=== PATIENT | female | born 1945 | race Caucasian/White ===

== ENCOUNTER → 2018-03-18 10:00 | Outpatient (CLI) | payer BC, SELFPAY ==
--- NOTE | 2018-03-18 10:04 | DI.CT.S_ITS ---
PROCEDURE: CT CHEST ABD PEL W CON INDICATIONS: Surveillance lymphoma TECHNIQUE: After the administration of oral and intravenous contrast, 5 mm thick sections acquired from the lung apices to the symphysis. 5 mm coronal and sagittal reformats were performed, with additional 7 mm coronal MIP reformats through the lungs. For radiation dose reduction, the following was used: automated exposure control, adjustment of mA and/or kV according to patient size. COMPARISON: [facility], CT, NECK/CHEST/ABD/PEL W CONTRAST, 08/15/2017, 12:01. [facility], CT, CHEST/ABD/PEL WITH CONTRAST, 06/21/2016, 10:07. [facility], CT, NECK/CHEST/ABD/PEL W CONTRAST, 01/19/2014, 9:52. [facility], CT, CHEST/ABD/PEL WITH CONTRAST, 08/07/2016, 11:08. FINDINGS: Image quality: Excellent. CHEST: Lungs and pleura: Mild atelectasis is present at the bilateral lung bases. No pleural effusion or pneumothorax. No acute airspace opacities. Mediastinum: Heart size is normal. There is a trace of low-density pericardial effusion. No mediastinal or hilar adenopathy by size criteria. Thoracic aorta and central pulmonary arteries are normal in size. Scattered atheromatous calcifications are present within the aortic arch. Esophagus is normal in caliber. No hiatal hernia. Chest wall: No axillary or supraclavicular adenopathy by size criteria. The thyroid gland demonstrates overall homogeneous enhancement. As before, there is a partially calcified posterior right thyroid lobe nodule which measures 2.0 x 2.9 cm on the current study it measured 2.1 x 2.8 cm on the study dated 06/21/16. Thyroid nodules. ABDOMEN: Solid organs: Liver is normal in size and enhancement. Gallbladder is unremarkable. Biliary system is non dilated. Pancreas enhances normally. Spleen is normal in size and enhancement. No adrenal nodules. Kidneys demonstrate normal size and enhancement, without hydronephrosis. There are multiple left pararenal cysts and subcentimeter bilateral cortical cysts. Peritoneum and bowel: Bowel loops demonstrate normal wall thickness and caliber. The appendix is thin walled and gas filled. There are scattered sigmoid diverticula. No evidence for diverticulitis. No free fluid or air. Nodes and vessels: No retroperitoneal or mesenteric adenopathy by size criteria. Aorta and inferior vena cava are normal in size. Miscellaneous: No ventral hernias. PELVIS: Genitourinary: Bladder wall thickness is normal. Miscellaneous: No inguinal hernias or adenopathy. Bones: No suspicious bony lesions. No vertebral body compression fractures. IMPRESSION: 1. No new adenopathy to suggest tumor recurrence. 2. Stable right posterior thyroid lobe. 3. Diverticulosis. No acute diverticulitis. Normal appendix. Dictated by: Renata Moreau M.D. on 03/18/2018 at 11:21 Approved by: Renata Moreau M.D. on 03/18/2018 at 11:29
[2018-03-18 10:34] LABS: Add Manual Diff / Slide Review NO; Basophils Percent Auto 0.8 % (0-2); Eosinophils Percent Auto 1.5 % (2-4); Hematocrit 40.7 % (36-46); Hemoglobin 13.6 g/dL (12.0-16.0); Lymphocytes Percent Auto 13.9 % (25-40); Mean Corpuscular HGB Conc 33.5 % (30-36); Mean Corpuscular Hemoglobin 30.9 PG (26-34); Mean Corpuscular Volume 92.5 fL (80-100); Monocytes Percent Auto 9.3 % (3-14); Neutrophils Absolute Auto 5800 /uL (3000-5900); Neutrophils Percent Auto 74.5 % (50-75); Platelet Count 317 X10^3/uL (150-400); Red Cell Distribution Width 14.2 % (11.6-14.8); White Blood Cell Count 7.8 X10^3/uL (4.5-11.0)
[2018-03-18 10:48] LABS: Alanine Aminotransferase 26 IU/L (9-52); Albumin 3.9 g/dL (3.5-5.0); Albumin Globulin Ratio 1.6 (1.0-2.8); Alkaline Phosphatase 78 U/L (38-126); Aspartate Aminotransferase 17 IU/L (14-36); BUN Creatinine Ratio 27.1 (6-22); Bilirubin Total 0.6 mg/dL (0.2-1.3); Blood Urea Nitrogen 19 mg/dL (7-17); Calcium 9.3 mg/dL (8.4-10.2); Carbon Dioxide 30 mmol/L (22-32); Chloride 103 mmol/L (98-107); Estimated Glomerular Filt Rate > 60.0 mL/min (>60); Globulin 2.5 g/dL (1.7-4.1); Glucose 87 mg/dL (80-110); HEMOLYSIS < 15 (0-50); Lactate Dehydrogenase 325 U/L (313-618); Sodium 140 mmol/L (137-145); Total Protein 6.4 g/dL (6.3-8.2)
--- NOTE | 2018-03-18 10:57 | DI.CT.S_ITS ---
PROCEDURE: CT SOFT TISSUE NECK W CON INDICATIONS: Surveillance lymphoma TECHNIQUE: After the administration of intravenous contrast, 3.0 mm axial sections acquired from the sella to the aortic arch. Additional oblique axial 3.0 mm sections acquired through the pharynx. 3 mm thick coronal and sagittal reformats were generated. For radiation dose reduction, the following was used: automated exposure control. COMPARISON: [facility], CT, CT CHEST ABD PEL W CON, 03/18/2018, 11:00. [facility], [place], [place] THYROID UPTAKE AND SCAN MULTIPLE, 12/03/2017, 14:18. [facility], CT, THORAX WITH CONTRAST, 11/23/2016, 10:32. [facility], CT, NECK/CHEST/ABD/PEL W CONTRAST, 08/15/2017, 12:01. FINDINGS: Image quality: Excellent. Lymph nodes: No enlarged lymph nodes seen throughout the neck. Vessels: Visualized vasculature appears patent. Neck spaces: The oropharynx, nasopharynx, and pharynx demonstrate no mucosal lesions. The vocal cords, false vocal cords, pyriform sinuses, epiglottis, vallecula, and tongue base all appear normal. Extramucosal spaces appear unremarkable. Glands: The parotid and submandibular glands appear normal. Thyroid gland is globally enlarged, right greater than left, as has been previously the case. Miscellaneous: Visualized brain and orbits appear normal. Lung apices appear clear. Superficial soft tissues appear normal. Bones: No suspicious bony lesions. Visualized sinuses and mastoids appear unremarkable. IMPRESSION: No adenopathy seen. Global enlargement of the thyroid gland bilaterally, right greater than left, previously documented. Dictated by: Zaki Rae M.D. on 03/18/2018 at 11:52 Approved by: Zaki Rae M.D. on 03/18/2018 at 12:09
== END ==
PROVIDERS: PCP Family Medicine; Visit Provider Nurse Practitioner Gerontology
DX: C85.90 Non-Hodgkin lymphoma, unspecified, unspecified site (principal)
CPT/HCPCS: 36415; 70491; 71260; 74177; 80053; 83615; 85025; Q9967

== ENCOUNTER → 2018-04-22 09:26 | Outpatient (CLI) | payer BC, SELFPAY ==
--- NOTE | 2018-04-22 | DI.MG.S_ITS ---
BILATERAL DIGITAL DIAGNOSTIC MAMMOGRAM 3D/2D: 04/22/2018 CLINICAL: Palpable left breast lump. Comparison is made to exams dated: 05/15/2017 mammogram, 05/08/2016 mammogram, and 05/07/2015 mammogram - [facility]. There are scattered fibroglandular elements in both breasts. There is a triangular marker overlying the skin of the upper inner left breast at the site of the patient's reported palpable abnormality. There is no underlying mammographic abnormality. No significant masses, calcifications, or other findings are seen in either breast. IMPRESSION: INCOMPLETE: NEEDS ADDITIONAL IMAGING EVALUATION No mammographic abnormality to correlate with the site of the patient's reported focal palpable abnormality. Targeted diagnostic ultrasound recommended for further evaluation, which will be performed immediately following this exam. This exam was interpreted at Station ID: [id number]. NOTE: For mammograms, a report in lay terms will be sent to the patient. Approximately 15% of breast malignancies will not be visualized mammographically. In the management of a palpable breast mass, a negative mammogram must not discourage biopsy of a clinically suspicious lesion. Electronically Signed By: Damion León M.D. ecl/:04/22/2018 17:42:36 letter sent: Additional Imaging Needed ACR BI-RADS Category 0: Incomplete 3340F
--- NOTE | 2018-04-22 | DI.US.S_ITS ---
PROCEDURE: US BREAST LT LIMITED COMPARISON: [facility], BIOPSY LOCALIZATION/ASPIRATION, 07/14/2016, 15:24. [facility], THYROID, 07/14/2016, 14:28. [facility], THYROID, 07/12/2015, 13:40. [facility], CAROTID ARTERY DOPPLER BILAT, 04/02/2014, 9:30. INDICATIONS: LEFT BREAST LUMP FINDINGS: IMPRESSION: Dictated by: Damion León M.D. on 04/22/2018 at 17:42 Approved by: Damion León M.D. on 04/22/2018 at 17:44
== END ==
PROVIDERS: PCP Family Medicine; Visit Provider Nurse Practitioner Gerontology
DX: R92.8 Other abnormal and inconclusive findings on diagnostic imaging of breast (principal); N63.22 Unspecified lump in the left breast, upper inner quadrant
CPT/HCPCS: 76642; 77066; G0279

== ENCOUNTER → 2018-07-29 14:50 | Outpatient (CLI) | payer BC, SELFPAY | PROVIDERS: PCP Family Medicine; Visit Provider Family Medicine | DX: R21 Rash and other nonspecific skin eruption (principal) | CPT/HCPCS: 87070; 87075; 87077; 87186; 87205 ==

== ENCOUNTER → 2018-08-20 13:37 | Outpatient (CLI) | payer BC, SELFPAY ==
--- NOTE | 2018-08-20 13:38 | DI.RAD.S_ITS ---
PROCEDURE: FL BARIUM SWALLOW INDICATIONS: difficulty swallowing, hx of radiation near esophagus COMPARISON: None. FINDINGS: Function: There is normal esophageal peristalsis. No elicited gastroesophageal reflux. There is normal transit of a calibrated barium tablet through the esophagus into the stomach. Morphology: Air-contrast images demonstrate normal mucosal morphology. Single contrast views show no esophageal strictures, extrinsic mass effects, or diverticula. Limited images of the stomach demonstrate normal appearance. IMPRESSION: Unremarkable double contrast barium swallow study. Dictated by: Laurent Turk M.D. on 08/20/2018 at 14:58 Approved by: Laurent Turk M.D. on 08/20/2018 at 14:59
== END ==
PROVIDERS: PCP Family Medicine; Visit Provider Family Medicine
DX: R13.10 Dysphagia, unspecified (principal)
CPT/HCPCS: 74220

== ENCOUNTER → 2018-10-04 12:44 | Outpatient (CLI) | payer BC, SELFPAY ==
[2018-10-04 13:24] LABS: Add Manual Diff / Slide Review NO; Basophils Absolute Auto 0 /uL (0-100); Basophils Percent Auto 0.3 % (0-2); Eosinophils Absolute Auto 100 /uL (0-450); Eosinophils Percent Auto 0.8 % (2-4); Hematocrit 39.2 % (36-46); Hemoglobin 12.9 g/dL (12.0-16.0); Lymphocytes Absolute Auto 1000 /uL (1100-4500); Lymphocytes Percent Auto 12.1 % (25-40); Mean Corpuscular HGB Conc 32.9 % (30-36); Mean Corpuscular Hemoglobin 30.2 PG (26-34); Mean Corpuscular Volume 91.8 fL (80-100); Monocytes Absolute Auto 700 /uL (0-900); Monocytes Percent Auto 8.7 % (3-14); Neutrophils Absolute Auto 6200 /uL (1500-7000); Neutrophils Percent Auto 78.1 % (50-75); Platelet Count 296 X10^3/uL (150-400); Red Blood Cell Count 4.27 X10^6/uL (4.0-5.2); Red Cell Distribution Width 14.7 % (11.6-14.8); White Blood Cell Count 7.9 X10^3/uL (4.5-11.0)
[2018-10-04 13:41] LABS: Alanine Aminotransferase 25 IU/L (9-52); Albumin 3.6 g/dL (3.5-5.0); Albumin Globulin Ratio 1.3 (1.0-2.8); Alkaline Phosphatase 78 U/L (38-126); Aspartate Aminotransferase 16 IU/L (14-36); Bilirubin Total 0.3 mg/dL (0.2-1.3); Blood Urea Nitrogen 19 mg/dL (7-17); Calcium 9.5 mg/dL (8.4-10.2); Carbon Dioxide 28 mmol/L (22-32); Chloride 105 mmol/L (98-107); Estimated Glomerular Filt Rate > 60.0 mL/min (>60); Globulin 2.8 g/dL (1.7-4.1); Glucose 126 mg/dL (80-110); HEMOLYSIS < 15 (0-50); Potassium 3.9 mmol/L (3.4-5.1); Sodium 141 mmol/L (137-145); Total Protein 6.4 g/dL (6.3-8.2)
[2018-10-04 13:57] LABS: Lactate Dehydrogenase 386 U/L (313-618)
== END ==
PROVIDERS: PCP Family Medicine; Visit Provider Nurse Practitioner Gerontology
DX: Z85.72 Personal history of non-Hodgkin lymphomas (principal)
CPT/HCPCS: 80053; 83615; 85025

== ENCOUNTER → 2018-10-10 11:30 | Outpatient (CLI) | payer BC, SELFPAY ==
[2018-10-10 12:38] LABS: Free T4, Direct Thyroxine 1.19 ng/dL (0.78-2.19)
[2018-10-10 12:52] LABS: Thyroid Stimulating Hormone 0.15 uIU/mL (0.47-4.68)
== END ==
PROVIDERS: Visit Provider Family Medicine
DX: E04.9 Nontoxic goiter, unspecified (principal)
CPT/HCPCS: 36415; 84439; 84443

== ENCOUNTER → 2018-12-03 09:45 | Outpatient (CLI) | payer BC, SELFPAY ==
[2018-12-03 10:31] LABS: Add Manual Diff / Slide Review NO; Basophils Absolute Auto 100 /uL (0-100); Basophils Percent Auto 0.9 % (0-2); Eosinophils Absolute Auto 200 /uL (0-450); Eosinophils Percent Auto 3.6 % (2-4); Hematocrit 38.7 % (36-46); Hemoglobin 12.7 g/dL (12.0-16.0); Lymphocytes Absolute Auto 900 /uL (1100-4500); Lymphocytes Percent Auto 14.3 % (25-40); Mean Corpuscular HGB Conc 32.9 % (30-36); Mean Corpuscular Hemoglobin 30.3 PG (26-34); Mean Corpuscular Volume 92.1 fL (80-100); Monocytes Absolute Auto 600 /uL (0-900); Monocytes Percent Auto 10.4 % (3-14); Neutrophils Absolute Auto 4300 /uL (1500-7000); Neutrophils Percent Auto 70.8 % (50-75); Platelet Count 307 X10^3/uL (150-400); Red Cell Distribution Width 14.7 % (11.6-14.8); White Blood Cell Count 6.1 X10^3/uL (4.5-11.0)
[2018-12-03 10:39] LABS: Alanine Aminotransferase 28 IU/L (9-52); Albumin 3.9 g/dL (3.5-5.0); Albumin Globulin Ratio 1.6 (1.0-2.8); Alkaline Phosphatase 65 U/L (38-126); Aspartate Aminotransferase 18 IU/L (14-36); Bilirubin Total 0.5 mg/dL (0.2-1.3); Blood Urea Nitrogen 15 mg/dL (7-17); Calcium 9.2 mg/dL (8.4-10.2); Carbon Dioxide 28 mmol/L (22-32); Chloride 103 mmol/L (98-107); Cholesterol 195 mg/dL (140-199); Estimated Glomerular Filt Rate > 60.0 mL/min (>60); Globulin 2.5 g/dL (1.7-4.1); Glucose 93 mg/dL (80-110); HDL Cholesterol 80 mg/dL (40-60); HEMOLYSIS < 15 (0-50); LDL Cholesterol Calculated 99 mg/dL (<100); Potassium 3.8 mmol/L (3.4-5.1); Sodium 138 mmol/L (137-145); Total Protein 6.4 g/dL (6.3-8.2); Triglycerides 82 mg/dL (35-150)
[2018-12-03 11:06] LABS: Free T3, Triiodothyronine Free 4.98 pg/mL (2.77-5.27); Free T4, Direct Thyroxine 1.21 ng/dL (0.78-2.19)
[2018-12-03 11:47] LABS: Creatinine Urine Random 97.6 mg/dL
[2018-12-03 11:51] LABS: Microalbumi Creatinin Ratio Ur 6.1 ug/mg CR (<30); Microalbumin Urine Random < 0.6 mg/dL (0-1.6)
== END ==
PROVIDERS: PCP Family Medicine; Visit Provider Family Medicine
DX: E04.9 Nontoxic goiter, unspecified (principal); R07.9 Chest pain, unspecified; I10 Essential (primary) hypertension
CPT/HCPCS: 36415; 80053; 80061; 82043; 82570; 84439; 84443; 84481; 85025

== ENCOUNTER → 2019-02-13 12:04 | Outpatient (CLI) | payer BC, SELFPAY ==
--- NOTE | 2019-02-13 | DI.CT.S_ITS ---
PROCEDURE: CT CHEST W CON INDICATIONS: Chest pain, unspecified, prior history of lymphoma. TECHNIQUE: After the administration of intravenous contrast, 5 mm thick sections acquired from the pulmonary apices to the posterior costophrenic angles. 7 mm thick coronal and sagittal MIP reformats were acquired. For radiation dose reduction, the following was used: automated exposure control, adjustment of mA and/or kV according to patient size. COMPARISON: [facility], CT, CT CHEST ABD PEL W CON, 03/18/2018, 11:00. FINDINGS: Image quality: Excellent. Lungs and pleura: No acute air space opacities. No pleural effusions or pneumothorax. Central and peripheral airways are patent and normal in caliber. Mediastinum: Heart size is normal. No pericardial effusion. No mediastinal or hilar adenopathy by size criteria. Thoracic aorta and central pulmonary arteries are normal in size. Esophagus is normal in caliber. No hiatal hernia. Bones and chest wall: No suspicious bony lesions. No vertebral body compression fractures. No axillary or supraclavicular adenopathy by size criteria. Thyroid gland is unchanged with several scattered nodules and asymmetric enlargement of the right posterior thyroid lobe as has been previously documented by CT scanning. No new nodule has developed. Abdomen: Visualized upper abdominal solid organs appear normal. Upper abdominal bowel loops are normal in caliber. Parapelvic cysts on the right are again noted. IMPRESSION: No definite change attendant time, source of new chest pain is not identified. No evidence of recurrent lymphoma is found. Stable appearance of scattered thyroid nodules with asymmetric enlargement of the right posterior thyroid lobe also stable over time. Again noted are several left renal peripelvic cysts. Dictated by: Zaki Rae M.D. on 02/13/2019 at 13:20 Approved by: Zaki Rae M.D. on 02/13/2019 at 13:24
[2019-02-13 12:37] LABS: Blood Urea Nitrogen 12 mg/dL (7-17); Calcium 9.3 mg/dL (8.4-10.2); Carbon Dioxide 29 mmol/L (22-32); Chloride 105 mmol/L (98-107); Estimated Glomerular Filt Rate > 60.0 mL/min (>60); Glucose 97 mg/dL (80-110); HEMOLYSIS < 15 (0-50); Potassium 3.9 mmol/L (3.4-5.1); Sodium 140 mmol/L (137-145)
== END ==
PROVIDERS: PCP Family Medicine; Visit Provider Internal Medicine Cardiovascular Disease
DX: R07.9 Chest pain, unspecified (principal); I31.9 Disease of pericardium, unspecified; E04.2 Nontoxic multinodular goiter; N28.1 Cyst of kidney, acquired; Z85.72 Personal history of non-Hodgkin lymphomas
CPT/HCPCS: 36415; 71260; 80048

== ENCOUNTER → 2019-04-22 12:01 | Outpatient (CLI) | payer BC, SELFPAY | PROVIDERS: Family Provider Family Medicine; PCP Family Medicine; Visit Provider Family Medicine ==

== ENCOUNTER → 2019-04-24 10:42 | Outpatient (CLI) | payer BC, SELFPAY ==
--- NOTE | 2019-04-24 | DI.MG.S_ITS ---
BILATERAL DIGITAL SCREENING MAMMOGRAM 3D/2D WITH CAD: 04/24/2019 CLINICAL: Routine screening. Family history of breast cancer. Comparison is made to exams dated: 04/22/2018 mammogram, 05/15/2017 mammogram, and 05/08/2016 mammogram - [facility]. There are scattered fibroglandular elements in both breasts. Current study was also evaluated with a Computer Aided Detection (CAD) system. No significant masses, calcifications, or other findings are seen in either breast. There has been no significant interval change. IMPRESSION: NEGATIVE There is no mammographic evidence of malignancy. A 1 year screening mammogram is recommended. This exam was interpreted at Station ID: [id number]. NOTE: For mammograms, a report in lay terms will be sent to the patient. Approximately 15% of breast malignancies will not be visualized mammographically. In the management of a palpable breast mass, a negative mammogram must not discourage biopsy of a clinically suspicious lesion. Electronically Signed By: Maynor maciel/mary:04/24/2019 11:39:16 letter sent: Normal Exam ACR BI-RADS Category 1: Negative [id number]
== END ==
PROVIDERS: Family Provider Family Medicine; PCP Family Medicine; Visit Provider Family Medicine
DX: Z12.31 Encounter for screening mammogram for malignant neoplasm of breast (principal); Z80.3 Family history of malignant neoplasm of breast
CPT/HCPCS: 77063; 77067

== ENCOUNTER → 2019-06-25 12:22 | Outpatient (CLI) | payer BC, SELFPAY ==
--- NOTE | 2019-06-25 12:24 | DI.RAD.S_ITS ---
PROCEDURE: XR CERVICAL SPINE 2V OR 3V INDICATIONS: upper back/neck pain with radiculopathy TECHNIQUE: 3 view(s) of the cervical spine were acquired. COMPARISON: None. FINDINGS: Bones: No fractures or dislocations to the T1 level. The lateral masses of C1 appear intact on the odontoid view. No suspicious bony lesions. Note is made of a moderately severe degree of degenerative disc disease with anterior osteophyte formation from C5-6 through C7-T1. Soft tissues: No prevertebral soft tissue swelling. IMPRESSION: Moderately severe lower half cervical spine degenerative disc disease and anterior projecting osteophytes. Spinal and foraminal stenosis likely is associated and may be further and more accurately assessed for by MR scanning if clinically indicated. Dictated by: Zaki Rae M.D. on 06/25/2019 at 14:09 Approved by: Zaki Rae M.D. on 06/25/2019 at 14:10
--- NOTE | 2019-06-25 12:24 | DI.RAD.S_ITS ---
PROCEDURE: XR THORACIC SPINE 3V INDICATIONS: upper back/neck pain with radiculopathy TECHNIQUE: 3 views of the thoracic spine were acquired. COMPARISON: None. FINDINGS: Bones: No fractures or dislocations. No suspicious bony lesions. 12 pairs of ribs are noted, and appear intact where visualized. Soft tissues: No paravertebral stripe thickening. IMPRESSION: No trauma to the thoracic spine is seen. Mild to moderate degenerative disc disease is noted along the thoracic spine best seen at the middle third. Dictated by: Zaki Rae M.D. on 06/25/2019 at 14:18 Approved by: Zaki Rae M.D. on 06/25/2019 at 14:20
== END ==
PROVIDERS: Family Provider Family Medicine; PCP Family Medicine; Visit Provider Family Medicine
DX: M50.122 Cervical disc disorder at C5-C6 level with radiculopathy (principal); M51.14 Intervertebral disc disorders with radiculopathy, thoracic region
CPT/HCPCS: 72040; 72072

== ENCOUNTER → 2019-07-08 13:19 | Outpatient (CLI) | payer BC, SELFPAY ==
--- NOTE | 2019-07-08 13:21 | DI.MRI.S_ITS ---
PROCEDURE: MR CERVICAL SPINE WO CON INDICATIONS: djd c spine, radiculopathy TECHNIQUE: Noncontrast sagittal T1 spin echo and T2 fast spin echo, sagittal STIR, foraminal oblique sagittal T2 fast spin echo, and axial gradient echo or T2 fast spin echo through the cervical spine. COMPARISON: None. FINDINGS: Image quality: Excellent. Alignment and Curvature: Straightening of the normal lordotic curvature. Anterolisthesis of C3 on C4 and trace retrolisthesis of C6 on C7 Bone Marrow: No fracture. Multilevel degenerative endplate sclerosis and spurring. Diffuse facet arthropathy. Spinal Cord: Visualized spinal cord has normal size and signal. No cerebellar tonsillar herniation. Paraspinous Soft Tissues: No paravertebral masses. Prevertebral soft tissues are normal in thickness. C2-C3: Mild central canal narrowing. Mild left foraminal stenosis with mild nerve root compression. No definite right foraminal stenosis. C3-C4: No central canal narrowing. Mild right foraminal narrowing. Moderate left foraminal stenosis with nerve root compression C4-C5: Mild central canal narrowing. Moderate foraminal stenosis with mild nerve root compression. Mild left foraminal stenosis C5-C6: Mild central canal narrowing. Mild right foraminal stenosis [id number] left foraminal narrowing with possible mild nerve root compression C6-C7: Moderate canal narrowing. Minimal right foraminal narrowing. Mild left foraminal stenosis C7-T1: Minimal central canal narrowing. Mild bilateral foraminal narrowing with possible minimal nerve root compression on the left. IMPRESSION: Diffuse cervical spondylosis and facet arthropathy as above. Moderate C6-C7 canal narrowing Straightening of the normal lordotic curvature. Dictated by: Thomas Leon M.D. on 07/08/2019 at 16:17 Approved by: Thomas Leon M.D. on 07/08/2019 at 16:24
== END ==
PROVIDERS: PCP Family Medicine; Visit Provider Family Medicine
DX: M47.22 Other spondylosis with radiculopathy, cervical region (principal); M48.02 Spinal stenosis, cervical region
CPT/HCPCS: 72141

== ENCOUNTER → 2019-07-09 17:12 | Outpatient (CLI) | payer BC, SELFPAY ==
[2019-07-09 19:33] LABS: Thyroid Stimulating Hormone 0.63 uIU/mL (0.47-4.68)
== END ==
PROVIDERS: Family Provider Family Medicine; PCP Family Medicine; Visit Provider Internal Medicine Endocrinology, Diabetes & Metabolism
DX: E05.90 Thyrotoxicosis, unspecified without thyrotoxic crisis or storm (principal)
CPT/HCPCS: 36415; 83519; 84439; 84443

== ENCOUNTER → 2019-10-27 10:08 | Outpatient (CLI) | payer BC, SELFPAY ==
[2019-10-27 10:37] LABS: Add Manual Diff / Slide Review NO; Basophils Absolute Auto 100 /uL (0-100); Basophils Percent Auto 0.9 % (0-2); Eosinophils Absolute Auto 200 /uL (0-450); Eosinophils Percent Auto 2.4 % (2-4); Hematocrit 40.7 % (36-46); Hemoglobin 13.5 g/dL (12.0-16.0); Lymphocytes Absolute Auto 1400 /uL (1100-4500); Lymphocytes Percent Auto 19.1 % (25-40); Mean Corpuscular HGB Conc 33.3 % (30-36); Mean Corpuscular Hemoglobin 30.6 PG (26-34); Monocytes Absolute Auto 800 /uL (0-900); Monocytes Percent Auto 10.6 % (3-14); Neutrophils Absolute Auto 4800 /uL (1500-7000); Platelet Count 295 X10^3/uL (150-400); Red Blood Cell Count 4.43 X10^6/uL (4.0-5.2); Red Cell Distribution Width 14.1 % (11.6-14.8); White Blood Cell Count 7.2 X10^3/uL (4.5-11.0)
[2019-10-27 10:47] LABS: Alanine Aminotransferase 15 IU/L (<35); Albumin Globulin Ratio 1.3 (1.0-2.8); Alkaline Phosphatase 88 U/L (38-126); Aspartate Aminotransferase 19 IU/L (14-36); BUN Creatinine Ratio 23.3 (6-22); Bilirubin Total 0.4 mg/dL (0.2-1.3); Blood Urea Nitrogen 14 mg/dL (7-17); Calcium 9.7 mg/dL (8.4-10.2); Carbon Dioxide 28 mmol/L (22-32); Chloride 103 mmol/L (98-107); Estimated Glomerular Filt Rate > 60.0 mL/min (>60); Glucose 95 mg/dL (80-110); HEMOLYSIS < 15 (0-50); Lactate Dehydrogenase 293 U/L (313-618); Potassium 3.7 mmol/L (3.4-5.1); Sodium 139 mmol/L (137-145)
== END ==
PROVIDERS: Family Provider Family Medicine; PCP Family Medicine; Referring Provider Internal Medicine Hematology & Oncology; Visit Provider Internal Medicine Hematology & Oncology
DX: D64.9 Anemia, unspecified (principal)
CPT/HCPCS: 36415; 80053; 83615; 85025

== ENCOUNTER → 2019-11-10 13:14 | Outpatient (CLI) | payer BC, SELFPAY ==
--- NOTE | 2019-11-10 13:15 | DI.MRI.S_ITS ---
PROCEDURE: MR ORBITS FACE NECK WO/W CON INDICATIONS: Left eye swelling, history of lymphoma to left eye TECHNIQUE: Noncontrast sagittal T1 spin echo, axial FLAIR, axial gradient echo, axial diffusion and ADC acquired through the brain. Coronal STIR, thin-slice axial T1 spin echo through the orbits. After the administration of contrast, thin-slice axial and coronal T1 spin echo with fat saturation through the orbits, axial T1 spin echo with fat saturation through the brain. COMPARISON: [facility], CT, HEAD WITH CONTRAST, 07/01/2015, 10:27. FINDINGS: Image quality: Motion or susceptibility artifact can be seen involving the eyelids. Orbits: Globes are symmetrical. Note is made of bilateral lens replacements. The optic nerves are normal in size, without abnormal signal or enhancement. No retrobulbar masses or fat abnormalities. The extra-ocular muscles are normal and symmetric in appearance. Lacrimal glands are normal. Optic chiasm is normal. Periorbital soft tissues appear normal. CSF spaces: Ventricles are normal in size and shape. Basal cisterns are patent. No extra-axial fluid collections. Brain: No intracranial bleeds or mass effects. No abnormal intracranial enhancement. Reveles-white matter interface is intact. Age-appropriate brain parenchymal volume loss and chronic small vessel ischemic change can be seen. Diffusion weighted images demonstrate no acute ischemic insults. Pituitary gland appears normal, without sellar or suprasellar masses. Brainstem appears normal. Normal intravascular flow voids are present. Skull and face: Calvarial marrow is normal in signal. Sinuses: Sinuses and mastoids are clear. Bilateral kaushal bullosa are incidentally noted, right larger than left. IMPRESSION: To the limits of this study, no masses or abnormal enhancement can be seen involving the orbits. Dictated by: Ulices Decker M.D. on 11/10/2019 at 14:41 Approved by: Ulices Decker M.D. on 11/10/2019 at 14:43
== END ==
PROVIDERS: Family Provider Family Medicine; PCP Family Medicine; Referring Provider Internal Medicine Hematology & Oncology; Visit Provider Internal Medicine Hematology & Oncology
DX: C82.91 Follicular lymphoma, unspecified, lymph nodes of head, face, and neck (principal); H57.89 Other specified disorders of eye and adnexa
CPT/HCPCS: 70543; A9579

== ENCOUNTER → 2020-01-13 11:27 | Outpatient (CLI) | payer BC, SELFPAY ==
--- NOTE | 2020-01-13 11:29 | DI.US.S_ITS ---
PROCEDURE: US EXTREMITY NONVASC LOWER RT INDICATIONS: RT INGUINAL MASS, SLIGHTLY FLUCTUANT, LN VS ABSCESS TECHNIQUE: Real-time scanning was performed of the right inguinal region, with image documentation. COMPARISON: None. FINDINGS: Targeted sonographic imaging of the right inguinal region demonstrates a slightly hypoechoic subcutaneous structure that measures 2.7 x 1.1 x 1.5 cm and demonstrates increased through transmission without a central/internal vascularity. Slight increased vascularity is demonstrated to the periphery of this structure. No definitive inguinal hernia or soft tissue mass is appreciated. No enlarged lymph nodes are identified. IMPRESSION: Heterogeneous fluid collection within the right inguinal region is most suggestive of an infectious process, either representing phlegmonous soft tissue changes versus a small focal abscess. Please correlate clinically. Dictated by: Haider Zuniga M.D. on 01/13/2020 at 12:53 Approved by: Haider Zuniga M.D. on 01/13/2020 at 13:13
== END ==
PROVIDERS: Family Provider Family Medicine; PCP Family Medicine; Referring Provider Family Medicine; Visit Provider Family Medicine
DX: R19.09 Other intra-abdominal and pelvic swelling, mass and lump (principal)
CPT/HCPCS: 76882

== ENCOUNTER → 2020-04-21 15:41 | Outpatient (CLI) | payer BC, SELFPAY ==
--- NOTE | 2020-04-21 15:42 | DI.RAD.S_ITS ---
PROCEDURE: XR CHEST 2V INDICATIONS: Chest pain, heart palpitations TECHNIQUE: 2 views of the chest were acquired. COMPARISON: None. FINDINGS: Surgical changes and devices: None. Lungs and pleura: Lungs are clear. No pleural effusions or pneumothorax. Mediastinum: Mediastinal contours are normal. Heart size is normal. Bones and chest wall: No suspicious bony abnormalities. Soft tissues appear unremarkable. IMPRESSION: No acute cardiopulmonary process demonstrated radiographically. Dictated by: Jose Mann M.D. on 04/21/2020 at 15:58 Approved by: Jose Mann M.D. on 04/21/2020 at 15:59
== END ==
PROVIDERS: Family Provider Family Medicine; PCP Family Medicine; Referring Provider Family Medicine; Visit Provider Family Medicine
DX: R07.9 Chest pain, unspecified (principal); R00.2 Palpitations
CPT/HCPCS: 71046

== ENCOUNTER → 2020-04-30 13:32 | Outpatient (CLI) | payer BC, SELFPAY ==
--- NOTE | 2020-04-30 13:34 | DI.CT.S_ITS ---
PROCEDURE: CT SOFT TISSUE NECK W CON INDICATIONS: Follow-up follicular lymphoma TECHNIQUE: After the administration of intravenous contrast, 3.0 mm axial sections acquired from the sella to the aortic arch. Additional oblique axial 3.0 mm sections acquired through the pharynx. 3 mm thick coronal and sagittal reformats were generated. For radiation dose reduction, the following was used: automated exposure control. COMPARISON: [facility], [place], THYROID, . 6, 14:28[facility], CT, CHEST ABDOMEN PELVIS WITH CONTRAST, 01/04/2011, 10:08. [facility], CT, CT SOFT TISSUE NECK W CON, 03/18/2018, 11:00. [facility], MR, MR CERVICAL SPINE WO CON, 07/08/2019, 13:23. FINDINGS: Image quality: Excellent. Lymph nodes: No threshold enlarged or pathologic appearing cervical or supraclavicular lymph node. Vessels: Visualized vasculature appears patent. Neck spaces: The oropharynx, nasopharynx, and pharynx demonstrate no mucosal lesions. The vocal cords, false vocal cords, pyriform sinuses, epiglottis, vallecula, and tongue base all appear normal. Extramucosal spaces appear unremarkable. Glands: The parotid and submandibular glands appear normal. Increased size of posterior right thyroid lobe nodule, currently measuring 3.5 x 2.6 cm maximum axial dimension compared with 2.9 x 2.3 cm previously. This measured approximately 2 cm maximum axial dimension on 01/04/2011 exam. Generalized thyromegaly is present, with both posterior thyroid lobes abutting and mildly deforming the esophagus. Miscellaneous: Visualized brain and orbits appear normal. Lung apices appear clear. Superficial soft tissues appear normal. Bones: No suspicious bony lesions. Visualized sinuses and mastoids appear unremarkable. IMPRESSION: No threshold lymphadenopathy in the neck to suggest recurrent or residual lymphoma. Posterior right thyroid lobe nodule, increased in size from comparison studies. This has been present since 2010 and it is relatively modest growth over a 9 year interval is suggestive of a benign lesion. In addition, the thyroid ultrasound performed 07/12/2016 demonstrated a benign spongiform appearance. Generalized thyromegaly. Correlate with thyroid function tests. Dictated by: Jose Mann M.D. on 04/30/2020 at 16:43 Approved by: Jose Mann M.D. on 04/30/2020 at 16:50
--- NOTE | 2020-04-30 13:34 | DI.CT.S_ITS ---
PROCEDURE: CT CHEST ABD PEL W CON INDICATIONS: Follow-up follicular lymphoma TECHNIQUE: After the administration of oral and intravenous contrast, 5 mm thick sections acquired from the lung apices to the symphysis. 5 mm coronal and sagittal reformats were performed, with additional 7 mm coronal MIP reformats through the lungs. For radiation dose reduction, the following was used: automated exposure control, adjustment of mA and/or kV according to patient size. COMPARISON: [facility], CT, CT CHEST ABD PEL W CON, 03/18/2018, 11:00. FINDINGS: Image quality: Excellent. CHEST: Lungs and pleura: Pulmonary scar is redemonstrated at the right lung base. No acute airspace opacities. No pleural effusion or pneumothorax. Mediastinum: Heart size is normal. No pericardial effusion. No mediastinal or hilar adenopathy by size criteria. Thoracic aorta and central pulmonary arteries are normal in size. Scattered atheromatous calcifications are present within the aortic arch. Esophagus is normal in caliber. No hiatal hernia. Chest wall: No axillary or supraclavicular adenopathy by size criteria. Right thyroid hypertrophy is redemonstrated in unchanged from the study dated March 18, 2018. ABDOMEN: Solid organs: Liver is normal in size and enhancement. Gallbladder is unremarkable . Biliary system is non dilated. Pancreas enhances normally. Spleen is normal in size and enhancement. No adrenal nodules. Kidneys demonstrate normal size and enhancement, without hydronephrosis. Bilateral low-density pararenal cysts are present. Peritoneum and bowel: Bowel loops demonstrate normal wall thickness and caliber. There are scattered sigmoid diverticula. No evidence for diverticulitis. The appendix is thin walled and gas filled. No free fluid or air. Nodes and vessels: No retroperitoneal or mesenteric adenopathy. Aorta and inferior vena cava are normal in size. Miscellaneous: No ventral hernias. PELVIS: Genitourinary: Bladder wall thickness is normal. The uterus is not visualized and is likely surgically absent. Left ovary is unremarkable. There is a low-density 1.4 cm cyst within the right ovary (series 6/image 99). Miscellaneous: No inguinal hernias or adenopathy. Bones: No suspicious bony lesions. No vertebral body compression fractures. IMPRESSION: 1. No adenopathy to suggest recurrent lymphoma. 2. Normal appendix. Diverticulosis. No acute diverticulitis. Dictated by: Renata Moreau M.D. on 04/30/2020 at 16:15 Approved by: Renata Moreau M.D. on 04/30/2020 at 16:21
== END ==
PROVIDERS: Family Provider Family Medicine; PCP Family Medicine; Referring Provider Family Medicine; Visit Provider Family Medicine
DX: Z08 Encounter for follow-up examination after completed treatment for malignant neoplasm (principal); Z85.72 Personal history of non-Hodgkin lymphomas; D64.9 Anemia, unspecified; E01.0 Iodine-deficiency related diffuse (endemic) goiter; N28.1 Cyst of kidney, acquired; K57.30 Diverticulosis of large intestine without perforation or abscess without bleeding
CPT/HCPCS: 70491; 71260; 74177; Q9967

== ENCOUNTER → 2020-05-05 16:12 | Outpatient (CLI) | payer BC, SELFPAY ==
--- NOTE | 2020-05-05 | DI.MG.S_ITS ---
BILATERAL DIGITAL SCREENING MAMMOGRAM 3D/2D WITH CAD: 05/05/2020 CLINICAL: Routine. Family history of breast cancer. Comparison is made to exams dated: 04/24/2019 mammogram, 04/22/2018 mammogram, 05/15/2017 mammogram, 05/08/2016 mammogram, 05/07/2015 mammogram, and 05/04/2014 mammogram - [facility]. There are scattered fibroglandular elements in both breasts. Current study was also evaluated with a Computer Aided Detection (CAD) system. No significant masses, calcifications, or other findings are seen in either breast. There has been no significant interval change. IMPRESSION: NEGATIVE There is no mammographic evidence of malignancy. A 1 year screening mammogram is recommended. This exam was interpreted at Station ID: [id number]. NOTE: For mammograms, a report in lay terms will be sent to the patient. Approximately 15% of breast malignancies will not be visualized mammographically. In the management of a palpable breast mass, a negative mammogram must not discourage biopsy of a clinically suspicious lesion. Electronically Signed By: Jason pacheco/mary:05/05/2020 16:40:05 letter sent: Normal Exam ACR BI-RADS Category 1: Negative [id number]
== END ==
PROVIDERS: Family Provider Family Medicine; PCP Family Medicine; Referring Provider Family Medicine; Visit Provider Family Medicine
DX: Z12.31 Encounter for screening mammogram for malignant neoplasm of breast (principal); Z80.3 Family history of malignant neoplasm of breast
CPT/HCPCS: 77063; 77067

== ENCOUNTER → 2020-05-10 08:02 | Outpatient (CLI) | payer BC, SELFPAY ==
--- NOTE | 2020-05-10 08:03 | DI.ECHO.S_ITS ---
[facility]---------+ [facility] +---------+ : : [address] : : : : [id number] : : : : Phone: [phone]+ Echocardiogram Report + + :Name: CHRISTINA HERMOSILLO Study Date: 05/10/2020 Height: 65 in : :[facility] Weight: 175 lb : : Gender: Female BSA: 1.9 m2 : :: 1945 Age: 74 yrs BP: 142/86 mmHg: :Reason For Study: Chest Pain : : Performed By: Ruthie Willingham : :Referring: ELIZABETH PETERS : + + Interpretation Summary The ejection fraction is estimated to be 60-65%. There is mild tricuspid regurgitation. The right ventricular systolic pressure is estimated to be at least 33 mmHg based on an estimated right atrial pressure of 8 mm Hg. Procedure: A two-dimensional transthoracic echocardiogram with color flow and Doppler was performed. The study quality was technically adequate. There is no prior echocardiogram noted for this patient. The patient was in sinus rhythm with heart rates between 68-73 bpm during the exam. Left Ventricle: The left ventricle is normal in size and wall thickness. The ejection fraction is estimated to be 60-65%. Left ventricular global longitudinal strain average is 21.4%. Left ventricular wall motion is normal. Diastolic parameters suggest a pseudonormalization pattern, consistent with probable elevated filling pressures. Right Ventricle: The right ventricle is normal in size and function. Atria: The left atrium is mildly dilated. Right atrial size is normal. There is no Doppler evidence for an interatrial shunt. Mitral Valve: The mitral valve is normal in structure and function. There is trace mitral regurgitation. Aortic Valve: The aortic valve is trileaflet. The aortic valve opens well. There is no aortic valve stenosis. No aortic regurgitation is present. Tricuspid Valve: The tricuspid valve is normal in structure and function. The right ventricular systolic pressure is estimated to be at least 33 mmHg based on an estimated right atrial pressure of 8 mm Hg. There is mild tricuspid regurgitation. Pulmonic Valve: The pulmonic valve leaflets are thin and pliable; valve motion is normal. There is no pulmonic valvular regurgitation. Great Vessels: The aortic root is normal size. The dimensions of the ascending aorta are normal. The IVC is dilated (diameter is greater than 2.1 cm) yet it collapses greater than 50% with a sniff. This suggests a right atrial pressure of 8 mm Hg. Pericardium/ Pleura There is no pericardial effusion. There is no pleural effusion. MMode/2D Measurements & Calculations LVIDd: 3.8 cm LVOT diam: 1.8 cm LVIDs: 2.6 cm Ao root diam: 2.9 cm FS: 31.8 % asc Aorta Diam: 2.7 cm EPSS: 0.91 cm Ao Arch Diam (Prox Trans): 2.6 cm IVSd: 0.96 cm LVPWd: 0.69 cm LV sandy. diameter/BSA (cm/m^2): 2.0 LV sys. diameter/BSA (cm/m^2): 1.4 LA A2 area: 23.7 cm2 RA long axis: 4.5 cm LA A4 area: 18.0 cm2 RA area: 14.4 cm2 LA length (vol): 5.7 cm RA vol: 39.1 ml LA vol: 63.2 ml RA : 20.9 ml/m2 LA vol index: 33.8 ml/m2 IVC diam: 2.4 cm RVD1 (basal): 3.1 cm TAPSE: 2.3 cm Doppler Measurements & Calculations Ao V2 max: 141.1 cm/sec LVOT Max Ze: 108.3 cm/sec Ao V2 mean: 89.4 cm/sec LV V1 max P.7 mmHg Ao max P.0 mmHg LV V1 VTI: 23.7 cm Ao mean P.8 mmHg LAY(I,D): 2.0 cm2 Ao V2 VTI: 30.3 cm LAY(V,D): 1.9 cm2 sev ratio: 0.78 LAY indexed to BSA (cm^2/m^2): 1.1 MV E max ze: 99.7 cm/sec TR max ze: 253.0 cm/sec MV A max ze: 105.0 cm/sec TR max P.6 mmHg MV E/A: 0.95 PA V2 max: 58.3 cm/sec Med Peak E' Ze: 5.8 cm/sec PA V2 mean: 37.5 cm/sec E/E' med: 17.3 PA mean P.67 mmHg Lat Peak E' Ze: 6.3 cm/sec PA pr(Accel): 46.5 mmHg E/E' lat: 15.7 E/e' average: 16.5 MV dec time: 0.24 sec SVLVOT): 59.9 ml Reading Physician:01:58 PM
== END ==
PROVIDERS: Family Provider Family Medicine; PCP Family Medicine; Referring Provider Family Medicine; Visit Provider Family Medicine
DX: I07.1 Rheumatic tricuspid insufficiency (principal); R07.9 Chest pain, unspecified; R60.0 Localized edema
CPT/HCPCS: 93306

== ENCOUNTER → 2020-05-12 12:57 | Outpatient (CLI) | payer BC, SELFPAY ==
--- NOTE | 2020-06-04 16:52 | PM.CARDMON.1 ---
Direct Care Supervisor Report Referral & Results Date Patient Seen: 05/12/20 Requesting provider: Lidia Sharpe Indication: Palpitations Duration of monitoring (days): 14 Diary information: There were 26 patient triggered events and 14 patient diary entries Patient triggered events were associated with (within 45 seconds) sinus rhythm, PACs, and SVT/atrial tachycardia Patient diary events were also associated with same 2 dysrhythmias and sinus rhythm Data: Minimum heart rate identified was 55 beats per minute at 00:45 on 05/13/2020 Maximum heart rate was 118 beats per minute at 19:43 on 05/17/2020 Maximum overall heart rate was 190 beats per minute at 11:02 on 05/25/2020 during a 7 beat run of SVT Approximately 1.7% of identified beats were supraventricular ectopic in origin Less than 1% of identified beats were ventricular ectopic in origin There were 89 runs of SVT/atrial tachycardia the longest lasting 20.6 seconds at a rate of 130 beats per minute which suggest probable atrial tachycardia Impression: Patient with primarily supraventricular dysrhythmias as above. No clear correlation between patient reported symptoms via the diarrhea or trigger mechanism and anyone particular dysrhythmia. Patient at times appeared to record events that were associated only with sinus rhythm Clinical correlation suggested
== END ==
PROVIDERS: Family Provider Family Medicine; PCP Family Medicine; Referring Provider Family Medicine; Visit Provider Family Medicine
DX: R00.2 Palpitations (principal)
CPT/HCPCS: 0296T; 0298T

== ENCOUNTER → 2020-09-27 13:42 | Outpatient (CLI) | payer BC, SELFPAY ==
--- NOTE | 2020-09-27 | DI.RAD.S_ITS ---
PROCEDURE: XR CERVICAL SPINE 4V OR 5V INDICATIONS: Radiculopathy, cervical region TECHNIQUE: 5 views of the cervical spine were acquired. COMPARISON: [facility], CR, XR CERVICAL SPINE 2V OR 3V, 06/25/2019, 12:28. FINDINGS: Bones: No fractures or dislocations to the T1 level. Loss of lordosis which could be related to muscle spasm, rigidity or simply positional. Multilevel disc degeneration, moderate to severe at the C5-C6 and C6-C7 levels. Moderate multilevel mid and lower cervical spine bilateral facet joint arthropathy and uncovertebral hypertrophy. No suspicious bony lesions. There is normal range of motion between flexion and extension, with preserved normal bony alignment. Soft tissues: Prevertebral soft tissues are normal in thickness. IMPRESSION: Multilevel spondylosis similar to prior examination dated 06/25/2019. Dictated by: Rodger CAI Interpreted: Laurent Turk MD on 09/27/2020 at 16:50 Approved by: Laurent Turk M.D. on 09/27/2020 at 17:05
== END ==
PROVIDERS: Family Provider Family Medicine; PCP Family Medicine; Referring Provider Neurological Surgery; Visit Provider Neurological Surgery
DX: M50.122 Cervical disc disorder at C5-C6 level with radiculopathy (principal)
CPT/HCPCS: 72050

== ENCOUNTER → 2020-12-03 10:59 | Outpatient (CLI) | payer BC, SELFPAY ==
[2020-12-03 11:15] LABS: Bacteria Urine None Seen; RBC Urine None Seen (0-5/HPF)
[2020-12-03 12:23] LABS: Add Manual Diff / Slide Review NO; Basophils Absolute Auto 100 /uL (0-100); Basophils Percent Auto 0.8 % (0-2); Eosinophils Absolute Auto 300 /uL (0-450); Hematocrit 39.8 % (36-46); Hemoglobin 13.3 g/dL (12.0-16.0); Lymphocytes Absolute Auto 1200 /uL (1100-4500); Lymphocytes Percent Auto 16.7 % (25-40); Mean Corpuscular HGB Conc 33.5 % (30-36); Mean Corpuscular Hemoglobin 30.5 PG (26-34); Monocytes Absolute Auto 700 /uL (0-900); Monocytes Percent Auto 9.7 % (3-14); Neutrophils Absolute Auto 4800 /uL (1500-7000); Neutrophils Percent Auto 68.8 % (50-75); Platelet Count 312 X10^3/uL (150-400); Red Blood Cell Count 4.38 X10^6/uL (4.0-5.2)
[2020-12-03 12:28] LABS: PTT Partial Thromboplastin Tim 28 SECONDS (26.4-36.2)
[2020-12-03 12:35] LABS: Alanine Aminotransferase 16 IU/L (<35); Albumin 3.9 g/dL (3.5-5.0); Albumin Globulin Ratio 1.6 (1.0-2.8); Alkaline Phosphatase 110 U/L (38-126); Aspartate Aminotransferase 21 IU/L (14-36); BUN Creatinine Ratio 33.9 (6-22); Bilirubin Total 0.3 mg/dL (0.2-1.3); Blood Urea Nitrogen 19 mg/dL (7-17); Calcium 9.9 mg/dL (8.4-10.2); Carbon Dioxide 26 mmol/L (22-32); Chloride 104 mmol/L (98-107); Estimated Glomerular Filt Rate > 60.0 mL/min (>60); Globulin 2.4 g/dL (1.7-4.1); Glucose 101 mg/dL (80-110); HEMOLYSIS < 15 (0-50); Potassium 4.2 mmol/L (3.4-5.1); Sodium 138 mmol/L (137-145); Total Protein 6.3 g/dL (6.3-8.2)
[2020-12-03 12:39] LABS: Hemoglobin A1C% w Est Avg Glu 5.7 % (4.0-6.0)
[2020-12-03 13:41] LABS: Bilirubin Urine UA NEGATIVE (NEGATIVE); Color Urine UA YELLOW; Glucose Urine UA NEGATIVE (Negative); Ketones Urine UA NEGATIVE (NEGATIVE); Leukocyte Esterase Urine UA 1+ (NEGATIVE); Nitrite Urine UA NEGATIVE (Negative); Occult Blood Urine UA NEGATIVE (Negative); Protein Urine UA NEGATIVE (Negative); Specific Gravity Urine UA 1.015 (1.000-1.035); Urobilinogen Urine UA 0.2 E.U./dL (0.2)
[2020-12-03 13:44] LABS: Appearance Urine UA Slightly Cloudy; pH Urine UA 6.5 (4.5-8.0)
[2020-12-03 13:51] LABS: WBC Urine 1-5/HPF (0-5/HPF)
[2020-12-03 13:52] LABS: Culture Indicated Urine Specimen Cultured
== END ==
PROVIDERS: Family Provider Family Medicine; PCP Family Medicine; Referring Provider Orthopaedic Surgery; Visit Provider Orthopaedic Surgery
DX: M48.02 Spinal stenosis, cervical region (principal)
CPT/HCPCS: 36415; 80053; 81001; 83036; 85025; 85610; 85730; 87086; 87797

== ENCOUNTER → 2021-01-03 11:48 | Outpatient (CLI) | payer BC, SELFPAY ==
[2021-01-03 13:36] LABS: COVID19 -Nasal RAPID Negative (Negative)
== END ==
PROVIDERS: Family Provider Family Medicine; PCP Family Medicine; Visit Provider Student in an Organized Health Care Education/Training Program
DX: Z20.822 Contact with and (suspected) exposure to COVID-19 (principal)
CPT/HCPCS: 87635

== ENCOUNTER → 2021-03-08 17:31 | Outpatient (CLI) | payer BC, SELFPAY ==
--- NOTE | 2021-03-08 17:34 | DI.RAD.S_ITS ---
PROCEDURE: XR WRIST LT MIN 3V INDICATIONS: wrist pain TECHNIQUE: 3 views of the wrist were acquired. COMPARISON: None. FINDINGS: Bones: No fractures or dislocations. No suspicious bony lesions. Radiocarpal degenerative narrowing is present. Scaphoid view: Not obtained. Soft tissues: No suspicious soft tissue calcifications. IMPRESSION: No visualized acute fracture or dislocation. However, if clinical concern and/or pain persist, short interval imaging followup in 7-10 days is recommended, as occult injury cannot be definitively excluded. Dictated by: Ava Majano M.D. on 03/08/2021 at 18:09 Approved by: Ava Majano M.D. on 03/08/2021 at 18:09
== END ==
PROVIDERS: PCP Family Medicine; Referring Provider Physician Assistant; Visit Provider Physician Assistant
DX: M25.532 Pain in left wrist (principal)
CPT/HCPCS: 73110

== ENCOUNTER → 2021-03-09 11:07 | Outpatient (CLI) | payer BC, SELFPAY ==
--- NOTE | 2021-03-09 11:09 | DI.RAD.S_ITS ---
PROCEDURE: XR LUMBAR SPINE 2-3V INDICATIONS: back pain TECHNIQUE: 2 views of the lumbar spine were acquired. COMPARISON: None. FINDINGS: Bones: 5 [id number] vertebrae are present. There is straightening of normal lumbar curvature. There is severe disc space narrowing at L4-5 and L5-S1. Severe foraminal narrowing is noted L5-S1, moderate to severe L4-5. There is otherwise mild to moderate disc space narrowing throughout the remainder of the lumbar spine. No vertebral body compression fractures. No suspicious bony lesions. Soft tissues: Overlying bowel gas pattern is normal. No suspicious soft tissue calcifications. IMPRESSION: Degenerative changes within the lumbar spine most prominent at L5-S1. Dictated by: Ava Majano M.D. on 03/09/2021 at 12:54 Approved by: Ava Majano M.D. on 03/09/2021 at 12:54
--- NOTE | 2021-03-09 11:09 | DI.RAD.S_ITS ---
PROCEDURE: XR SACRUM COCCYX MIN 2V INDICATIONS: back pain TECHNIQUE: 3 views of the sacrum and coccyx acquired. COMPARISON: None. FINDINGS: Bones: No fractures or dislocations. No suspicious bony lesions. Soft tissues: Visualized bowel gas pattern is normal. No suspicious soft tissue densities. IMPRESSION: No visualized acute fracture or dislocation. However, if clinical concern and/or pain persist, short interval imaging followup in 7-10 days is recommended, as occult injury cannot be definitively excluded. 1 Dictated by: Ava Majano M.D. on 03/09/2021 at 12:53 Approved by: Ava Majano M.D. on 03/09/2021 at 12:54
[2021-03-09 12:18] LABS: Add Manual Diff / Slide Review NO; Basophils Absolute Auto 100 /uL (0-100); Basophils Percent Auto 0.7 % (0-2); Eosinophils Absolute Auto 200 /uL (0-450); Eosinophils Percent Auto 2.4 % (2-4); Hematocrit 39.1 % (36-46); Hemoglobin 13.3 g/dL (12.0-16.0); Lymphocytes Absolute Auto 1100 /uL (1100-4500); Lymphocytes Percent Auto 13.6 % (25-40); Mean Corpuscular HGB Conc 33.9 % (30-36); Mean Corpuscular Hemoglobin 30.8 PG (26-34); Mean Corpuscular Volume 90.9 fL (80-100); Monocytes Absolute Auto 800 /uL (0-900); Monocytes Percent Auto 9.7 % (3-14); Neutrophils Absolute Auto 6100 /uL (1500-7000); Neutrophils Percent Auto 73.6 % (50-75); Platelet Count 322 X10^3/uL (150-400); Red Blood Cell Count 4.31 X10^6/uL (4.0-5.2); Red Cell Distribution Width 14.5 % (11.6-14.8); White Blood Cell Count 8.3 X10^3/uL (4.5-11.0)
[2021-03-09 12:33] LABS: Blood Urea Nitrogen 13 mg/dL (7-17); Calcium 9.7 mg/dL (8.4-10.2); Carbon Dioxide 26 mmol/L (22-32); Chloride 102 mmol/L (98-107); Estimated Glomerular Filt Rate > 60.0 mL/min (>60); Glucose 87 mg/dL (80-110); HEMOLYSIS < 15 (0-50); Potassium 4.2 mmol/L (3.4-5.1); Sodium 134 mmol/L (137-145)
== END ==
PROVIDERS: PCP Family Medicine; Referring Provider Physician Assistant; Visit Provider Physician Assistant
DX: M54.9 Dorsalgia, unspecified (principal); I10 Essential (primary) hypertension; R06.02 Shortness of breath; R07.89 Other chest pain
CPT/HCPCS: 36415; 72100; 72220; 80048; 85025

== ENCOUNTER → 2021-04-28 12:14 | Outpatient (CLI) | payer BC, SELFPAY ==
[2021-04-28 12:46] LABS: Add Manual Diff / Slide Review NO; Basophils Absolute Auto 100 /uL (0-100); Eosinophils Absolute Auto 400 /uL (0-450); Eosinophils Percent Auto 5.4 % (2-4); Hematocrit 40.4 % (36-46); Hemoglobin 13.2 g/dL (12.0-16.0); Lymphocytes Absolute Auto 1200 /uL (1100-4500); Mean Corpuscular HGB Conc 32.8 % (30-36); Mean Corpuscular Hemoglobin 29.9 PG (26-34); Mean Corpuscular Volume 91.1 fL (80-100); Monocytes Absolute Auto 700 /uL (0-900); Monocytes Percent Auto 9.4 % (3-14); Neutrophils Absolute Auto 5100 /uL (1500-7000); Neutrophils Percent Auto 68.2 % (50-75); Platelet Count 306 X10^3/uL (150-400); Red Blood Cell Count 4.43 X10^6/uL (4.0-5.2); Red Cell Distribution Width 14.8 % (11.6-14.8); White Blood Cell Count 7.5 X10^3/uL (4.5-11.0)
[2021-04-28 12:58] LABS: Lactate Dehydrogenase 310 U/L (313-618)
[2021-04-28 13:11] LABS: Alanine Aminotransferase 15 IU/L (<35); Albumin 3.6 g/dL (3.5-5.0); Albumin Globulin Ratio 1.3 (1.0-2.8); Alkaline Phosphatase 81 U/L (38-126); Aspartate Aminotransferase 20 IU/L (14-36); BUN Creatinine Ratio 33.9 (6-22); Bilirubin Total 0.7 mg/dL (0.2-1.3); Blood Urea Nitrogen 19 mg/dL (7-17); Calcium 9.5 mg/dL (8.4-10.2); Carbon Dioxide 24 mmol/L (22-32); Chloride 106 mmol/L (98-107); Estimated Glomerular Filt Rate > 60.0 mL/min (>60); Globulin 2.7 g/dL (1.7-4.1); Glucose 139 mg/dL (80-110); HEMOLYSIS < 15 (0-50); Potassium 3.8 mmol/L (3.4-5.1); Sodium 137 mmol/L (137-145); Total Protein 6.3 g/dL (6.3-8.2)
== END ==
PROVIDERS: PCP Family Medicine; Referring Provider Internal Medicine; Visit Provider Internal Medicine
DX: Z85.72 Personal history of non-Hodgkin lymphomas (principal)
CPT/HCPCS: 36415; 80053; 83615; 85025

== ENCOUNTER → 2021-05-04 10:39 | Outpatient (CLI) | payer BC, SELFPAY ==
--- NOTE | 2021-05-04 10:40 | DI.MRI.S_ITS ---
PROCEDURE: MR LUMBAR SPINE WO CON INDICATIONS: lower back pain TECHNIQUE: Noncontrast sagittal T1 spin echo and T2 fast echo, sagittal STIR, axial T1 and T2 fast spin echo through the lumbar spine. In cases with scoliosis, additional coronal T2 fast spin echo may be performed. COMPARISON: [facility], MR, L-SPINE WITHOUT CONTRAST, 01/08/2018, 8:31. FINDINGS: Image quality: Excellent. Alignment and Curvature: Straightening of the normal lordotic curvature. Bone Marrow: No acute fracture identified. Multilevel degenerative endplate sclerosis and spurring. Diffuse facet arthropathy. Spinal Cord: Conus medullaris terminates at the L1 level. Visualized cord demonstrates normal signal and size. Paraspinous Soft Tissues: Left parapelvic cysts T12-L1: No canal stenosis. Minimal bilateral foraminal narrowing, unchanged L1-L2: No canal narrowing. No definite foraminal stenosis. L2-L3: Minimal canal narrowing. Partial effacement of both lateral recesses with bilaterally symmetric appearance. Mild bilateral foraminal narrowing, grossly unchanged L3-L4: Mild left-sided canal narrowing. Partial effacement of both lateral recesses with asymmetric appearance, left greater than right. Mild bilateral foraminal stenosis, grossly unchanged. L4-L5: Seug-xr-kuzlvvgk canal narrowing. Partial effacement of both lateral recesses with bilaterally symmetric appearance. Moderate bilateral foraminal stenoses with slight right-sided nerve root compression which are grossly unchanged L5-S1: Mild canal narrowing Partial effacement of both lateral recesses with bilaterally symmetric appearance. Severe bilateral foraminal stenosis, with nerve root compression on both sides although unchanged appearance. IMPRESSION: Overall, unchanged examination since 01/08/18 as detailed above by spinal level. Dictated by: Thomas Leon M.D. on 05/04/2021 at 12:59 Approved by: Thomas Leon M.D. on 05/04/2021 at 13:13
== END ==
PROVIDERS: PCP Family Medicine; Referring Provider Family Medicine; Visit Provider Family Medicine
DX: M54.5 Low back pain (principal); M48.061 Spinal stenosis, lumbar region without neurogenic claudication; M48.07 Spinal stenosis, lumbosacral region
CPT/HCPCS: 72148

== ENCOUNTER → 2021-05-06 14:38 | Outpatient (CLI) | payer BC, SELFPAY ==
--- NOTE | 2021-05-06 14:38 | DI.MG.S_ITS ---
BILATERAL DIGITAL SCREENING MAMMOGRAM 3D/2D WITH CAD: 05/06/2021 CLINICAL: Routine screening. Family history of breast cancer. Comparison is made to exams dated: 05/05/2020 mammogram, 04/24/2019 mammogram, and 04/22/2018 mammogram - [facility]. There are scattered fibroglandular elements in both breasts. Current study was also evaluated with a Computer Aided Detection (CAD) system. No significant masses, calcifications, or other findings are seen in either breast. There has been no significant interval change. IMPRESSION: NEGATIVE There is no mammographic evidence of malignancy. A 1 year screening mammogram is recommended. This exam was interpreted at Station ID: [id number]. NOTE: For mammograms, a report in lay terms will be sent to the patient. Approximately 15% of breast malignancies will not be visualized mammographically. In the management of a palpable breast mass, a negative mammogram must not discourage biopsy of a clinically suspicious lesion. Electronically Signed By: Jose Mann M.D., jr/mary:05/06/2021 16:23:14 letter sent: Normal Exam ACR BI-RADS Category 1: Negative [id number]
== END ==
PROVIDERS: PCP Family Medicine; Referring Provider Family Medicine; Visit Provider Family Medicine
DX: Z12.31 Encounter for screening mammogram for malignant neoplasm of breast (principal); Z80.3 Family history of malignant neoplasm of breast
CPT/HCPCS: 77063; 77067

== ENCOUNTER → 2021-06-16 14:37 | Outpatient (CLI) | payer BC, SELFPAY ==
[2021-06-16 15:51] LABS: BUN Creatinine Ratio 31.6 (6-22); Blood Urea Nitrogen 18 mg/dL (7-17); Calcium 9.6 mg/dL (8.4-10.2); Carbon Dioxide 29 mmol/L (22-32); Chloride 106 mmol/L (98-107); Estimated Glomerular Filt Rate > 60.0 mL/min (>60); Glucose 91 mg/dL (80-110); HEMOLYSIS < 15 (0-50); Potassium 3.9 mmol/L (3.4-5.1); Sodium 140 mmol/L (137-145)
[2021-06-16 16:23] LABS: TSH w/ Reflex to FT4 0.86 uIU/mL (0.47-4.68)
== END ==
PROVIDERS: PCP Family Medicine; Referring Provider Family Medicine; Visit Provider Family Medicine
DX: E87.1 Hypo-osmolality and hyponatremia (principal); E04.9 Nontoxic goiter, unspecified
CPT/HCPCS: 36415; 80048; 84443

== ENCOUNTER 2021-06-29 13:00 | Outpatient (RCR) | payer BC, SELFPAY ==
--- NOTE | 2021-02-21 16:23 | PT.OIE ---
Current Diagnoses Pain in right hip (02/21/21) Pain in left hip (02/21/21) Cervicalgia (02/21/21) Abnormal posture (02/21/21) Weakness (02/21/21) Past Medical History (Last Reviewed 09/29/19 @ 09:17 by GUME Krueger) Anemia Cataract (2013) Chicken pox Essential hypertension Excessive daytime sleepiness Foot pain Hearing loss (2009) Hemorrhoids (1986) Lymphoma (2006) Measles Migraines Nocturnal hypoxemia Obstructive sleep apnea Primary insomnia Recurrent sinusitis Past Surgical History (Last Reviewed 09/29/19 @ 09:17 by GUME Krueger) H/O rhinoplasty (2003) History of bladder suspension procedure History of cataract surgery (2013) Hx of nasal polypectomy (2006) S/P total abdominal hysterectomy and bilateral salpingo-oophorectomy Visit Care Team Role Provider Type Lidia Sharpe MD Primary Care Provider Physician Specialty: Family Practice Address: [address] [place] [address], [place], [address] Email: [email or web address] GUME Larsen Attending Provider Non-Staff Referring Provider Specialty: Medical Address: [address] [place] [address], [facility] [place] [address] [place] [address], [id number] Email: Physical Therapy Initial Evaluation PT-OP-A Visit Information Start: 02/20/21 08:21 Freq: Status: Active Protocol: Document 02/21/21 09:47 SAK (Rec: 02/21/21 10:39 [facility] [id number]) Out-Patient Physical Therapy Visit Information Visit Information Visit Type Initial Evaluation Visit Start Time 09:45 Visit Number 1 Evaluation Information Evaluation Date 02/21/21 PT-OP-B Current Condition Start: 02/20/21 08:21 Freq: Status: Active Protocol: Document 02/21/21 09:47 SAK (Rec: 02/21/21 10:39 SAK [id number]) Current Condition History of Current Condition Onset Date 01/06/21 Current Complaints persistent pain neck, right UE pain, bilateral LE pain, unpredictable. History of Current Condition 01/06/21: cervical fusion C567 anterior approach. Reports x- ray at follow-up 01/24/21 looked good. Sees doctor again next week 03/02/21. Since surgery started off feeling better, now reports some good days, some bad days with pain, still taking some pain pills (a couple days per week.) Pain is right sided more than left, sometimes radiating into right UE, right shoulder blade. Symptoms similar to before surgery but not as bad. Has been using ice, states was told by physician to only use ice, not heat at first after surgery. Has been doing shoulder shrugs, neck turning exercises, looking up and down. Denies N/T. Also seeing a doctor due to bilateral leg pain right greater than left, keeping her up at night. More pain when first stands up from sitting. Getting injections in knees tomorrow. Trying to walk about 1/2 hour per day abut severity of pain limits her mobiity. Prior Treatments and Tests No recent x-ray or MRI. Has had injections bilateral LE's, last 1 1/2 years. Also history of neck injections. Future Testing and Treatments Planned knee injections tomorrow. Follow-up with surgeon 03/02/21 Treatment Goals Patient/Caregiver Goals Decrease pain, increase her activity tolerance. Prior Functional Status Baseline Function- ADL's Modified Independent Baseline Function- Mobility Modified Independent Baseline Function- Gait independent, no limitations, no device Baseline Function- Work/School retired Baseline Function- Recreation/Hobbies no limitations Current Functional Impairments (Reported) Functional Limitations- ADL's painful Functional Limitations- Mobility/Gait painful Functional Limitations- Work/School retired Functional Limitations- Recreation/ unable Hobbies PT-OP-F Manual Assessment Start: 02/20/21 08:21 Freq: Status: Active Protocol: Document 02/21/21 09:47 [facility] (Rec: 02/21/21 14:27 [facility] [id number]) Manual Assessments Soft Tissue Assessment Soft Tissue Mobility Assessment increased soft tissue tightness bilateral c/s and upper traps right greater than left, right periscapular sregion PT-OP-G Mobility & Gait Start: 02/20/21 08:21 Freq: Status: Active Protocol: Document 02/21/21 09:47 [facility] (Rec: 02/21/21 14:27 [facility] [id number]) OP Mobility Evaluation Bed Mobility Rolling independent with log roll Supine to and from Sit independent with log roll PT-OP-H Neuro Start: 02/20/21 08:21 Freq: Status: Active Protocol: Document 02/21/21 09:47 [facility] (Rec: 02/21/21 14:27 [facility] [id number]) Sensation Evaluation Gross Sensation Gross Sensation WNL PT-OP-J Posture/Palpation/Skin Start: 02/20/21 08:21 Freq: Status: Active Protocol: Document 02/21/21 09:47 [facility] (Rec: 02/21/21 14:27 [facility] [id number]) Posture Evaluation Position Standing Head/C-Spine Posture Forward Head T-Spine Posture Increased Kyphosis L-Spine Posture Increased Lordosis Shoulder Posture (L) Rounded,(R) Rounded Shoulder Subluxation Position (L) Anterior,(R) Anterior Scapula Posture (L) Protracted,(R) Protracted Hip Posture (L) Externally Rotated,(R) Externally Rotated Foot Arch (L) Low Arch,(R) Low Arch PT-OP-K Range of Motion Start: 02/20/21 08:21 Freq: Status: Active Protocol: Document 02/21/21 09:47 [facility] (Rec: 02/21/21 14:27 [facility] [id number]) Cervical Spine Range of Motion Cervical Spine Active Testing Position Sitting Flexion 45 Extension 12 Rotation Left 39 Lateral Flexion Left 10 Lateral Flexion Right 35 ROM Limitations Soft Tissue Tightness,Pain Lumbar Spine Range of Motion Lumbar Spine Active ROM Limitations Soft Tissue Tightness,Pain Comments moderate decrease in ROM all motions except flexion Shoulder Goniometric Range of Motion Shoulder justin Shoulder ROM WFL Yes Comments neck painful with movement Elbow/Forearm Range of Motion Elbow/Forearm justin Elbow/Forearm ROM WFL Yes PT-OP-M Strength Start: 02/20/21 08:21 Freq: Status: Active Protocol: Document 02/21/21 09:47 [facility] (Rec: 02/21/21 14:27 [facility] [id number]) Cervical Spine Strength Cervical Spine Manual Muscle Testing Comments not tested due to recent surgery Trunk Strength Trunk Manual Muscle Testing Comments not tested due to recent surgery Shoulder Strength Shoulder Manual Muscle Testing justin Comments no testing due to recent surgery Hand Geospatial Information Technologist/Pinch Strength Hand Dominance Hand Dominance Right Hand Strength Right Geospatial Information Technologist (lbs) 35 Left Geospatial Information Technologist (lbs) 40 Hip Strength Hip Manual Muscle Testing justin Comments no MMT due to recent surgery, no straining PT-OP-Q Treatments Start: 02/20/21 08:21 Freq: Status: Active Protocol: Document 02/21/21 09:47 [facility] (Rec: 02/21/21 14:27 [facility] [id number]) Self-Care/Home Management Treatment Education Patient Education Home Exercise Program,Joint Protection,Pain Management, Posture PT-OP-T Assessment and Plan Start: 02/20/21 08:21 Freq: Status: Active Protocol: Document 02/21/21 09:47 [facility] (Rec: 02/21/21 10:39 [facility] [id number]) Physical Therapy Assessment Rehab Potential Rehabilitation Potential Good Evaluation Complexity Number of Personal Factors/Comorbidities 1-2 Number of Body Systems Impaired 3 Clinical Presentation at Evaluation Evolving Impairments Impairments Activity Tolerance,Pain, Posture Goals Four Impairment postural dysfunction Short Term Goal (STG) Patient will demonstrate good understanding of neutral postural alignment and be independent with HEP for postural correction and stabilization STG Duration 04/10/21 Senior Living Goal (LTG) Patient will be able to self- correct postural alignment without physical or verbal cues for improved spinal functioning and activity tolerance. LTG Duration 05/22/21 Three Impairment bilateral LE pain as high as 7 /10 interrupting sleep and mobility Senior Living Goal (LTG) Patient able to return to all usual activities including walking, and be able to sleep without interruption due to pain in LE's LTG Duration 05/22/21 Two Impairment Pain neck and UE's right greater than left as high as 6 /10 Senior Living Goal (LTG) Patient will be able to do all usual activities with pain no greater than 2/10 LTG Duration 05/22/21 One Impairment neck and shoulder disability index score 40% Jewel Cupping Machine Operator Goal (LTG) Decrease neck and shoulder disability index score to no greater than 15% as measure of improved neck and shoulder function. LTG Duration 05/22/21 Assessment Summary Assessment Patient presents with function -limiting neck pain right greater than left with pain radiating into right UE at times, guarding pain in right scapula. Patient has limited neck ROM with habitual posturing to right, increased tightness in all right cervical musculature. Patient 's posture also characterized by forward head, rounded shoulder posture. Cervical fusion C5-7 7 wks ago, initially felt better, states she hasn't pushed hard with return to activity, but is having some bad days, still using occasional Oxycontin about 2 days per week. She also is limited by bilateral LE pain which worsens upon standing and walking, and also makes it difficult to sleep at night. Pain dimnishes some with manual traction. Has weakness throughout core and LE's as well as excess lumbar lordosis posturing, habitual posturing cervical right sidebending when standing and talking. Geospatial Information Technologist left 45,40,35. Geospatial Information Technologist right 37, 35, 32.(patient right handed. Cervical extension 12, flexion 45, SB right 35, left 19. rotation left 39 justin. shoulder movement increases neck pain right greater than left. Increase in LE pain with all lumbar motions. Physical Therapy Plan Frequency and Duration Frequency of Treatment 2x/Week Duration of Treatment 12 weeks Plan of Care Start Date 02/21/21 Plan of Care End Date 05/22/21 Next Visit Focus/Plan Next Note Type Treatment Note Next Visit Plan Postural education, soft tissue mobilization c/s, upper trap, and periscapular region , instruct in HEP for postural correction and core stabilization. Heat or ice as indicated and tolerated for pain managment and decreased soft tissue tension.
--- NOTE | 2021-02-21 16:23 | PT.OPPOC ---
Physical, Occupational & Speech Therapy At [facility] Current Diagnoses Pain in right hip (02/21/21) Pain in left hip (02/21/21) Cervicalgia (02/21/21) Abnormal posture (02/21/21) Weakness (02/21/21) Visit Care Team Role Provider Type Lidia Sharpe MD Primary Care Provider Physician Specialty: Family Practice Address: [address] [place] [address], [address], [place], [address] Email: [email or web address] GUME Larsen Attending Provider Non-Staff Referring Provider Specialty: Medical Address: [address] [place] [address], [address] [place] [address] [place] [address], [address] Email: Plan Of Care PT-OP-T Assessment and Plan Start: 02/20/21 08:21 Freq: Status: Active Protocol: Document 02/21/21 09:47 SAK (Rec: 02/21/21 10:39 [facility]AK [id number]) Physical Therapy Assessment Rehab Potential Rehabilitation Potential Good Evaluation Complexity Number of Personal Factors/Comorbidities 1-2 Number of Body Systems Impaired 3 Clinical Presentation at Evaluation Evolving Impairments Impairments Activity Tolerance,Pain, Posture Goals Four Impairment postural dysfunction Short Term Goal (STG) Patient will demonstrate good understanding of neutral postural alignment and be independent with HEP for postural correction and stabilization STG Duration 04/10/21 Group Home Goal (LTG) Patient will be able to self- correct postural alignment without physical or verbal cues for improved spinal functioning and activity tolerance. LTG Duration 05/22/21 Three Impairment bilateral LE pain as high as 7 /10 interrupting sleep and mobility Group Home Goal (LTG) Patient able to return to all usual activities including walking, and be able to sleep without interruption due to pain in LE's LTG Duration 05/22/21 Two Impairment Pain neck and UE's right greater than left as high as 6 /10 Group Home Goal (LTG) Patient will be able to do all usual activities with pain no greater than 2/10 LTG Duration 05/22/21 One Impairment neck and shoulder disability index score 40% Group Home Goal (LTG) Decrease neck and shoulder disability index score to no greater than 15% as measure of improved neck and shoulder function. LTG Duration 05/22/21 Assessment Summary Assessment Patient presents with function -limiting neck pain right greater than left with pain radiating into right UE at times, guarding pain in right scapula. Patient has limited neck ROM with habitual posturing to right, increased tightness in all right cervical musculature. Patient 's posture also characterized by forward head, rounded shoulder posture. Cervical fusion C5-7 7 wks ago, initially felt better, states she hasn't pushed hard with return to activity, but is having some bad days, still using occasional Oxycontin about 2 days per week. She also is limited by bilateral LE pain which worsens upon standing and walking, and also makes it difficult to sleep at night. Pain dimnishes some with manual traction. Has weakness throughout core and LE's as well as excess lumbar lordosis posturing, habitual posturing cervical right sidebending when standing and talking. Naval Engineer left 45,40,35. Naval Engineer right 37, 35, 32.(patient right handed. Cervical extension 12, flexion 45, SB right 35, left 19. rotation left 39 justin. shoulder movement increases neck pain right greater than left. Increase in LE pain with all lumbar motions. Physical Therapy Plan Frequency and Duration Frequency of Treatment 2x/Week Duration of Treatment 12 weeks Plan of Care Start Date 02/21/21 Plan of Care End Date 05/22/21 Next Visit Focus/Plan Next Note Type Treatment Note Next Visit Plan Postural education, soft tissue mobilization c/s, upper trap, and periscapular region , instruct in HEP for postural correction and core stabilization. Heat or ice as indicated and tolerated for pain managment and decreased soft tissue tension. Plan of Care Dates Plan of Care Start Date 02/21/21 Plan of Care End Date 05/22/21 Electronically Signed by: Swapna Jacome, PT 02/21/21 [id number] Please Sign and Return: I have reviewed this Plan of Care and certify that the skilled therapy services above are required to meet the patient?s needs. Physician Signature Date Printed Name and Credentials Clinical Instructor Signature Printed Name and Credentials
--- NOTE | 2021-02-23 16:52 | PT.OTN ---
Current Diagnoses Pain in right hip (02/23/21) Pain in left hip (02/23/21) Cervicalgia (02/23/21) Abnormal posture (02/23/21) Weakness (02/23/21) Physical Therapy Treatment Note PT-OP-A Visit Information Start: 02/20/21 08:21 Freq: Status: Active Protocol: Document 02/23/21 09:47 [facility] (Rec: 02/23/21 10:31 [facility] [id number]) Out-Patient Physical Therapy Visit Information Visit Information Visit Type Treatment Note Visit Start Time 09:45 Visit Stop Time 10:40 Total Visit Minutes 55 Visit Number 2 PT-OP-B Current Condition Start: 02/20/21 08:21 Freq: Status: Active Protocol: Document 02/23/21 09:47 [facility] (Rec: 02/23/21 10:31 [facility] [id number]) Current Condition History of Current Condition Onset Date 01/06/21 Current Complaints persistent pain neck, right UE pain, bilateral LE pain, unpredictable. History of Current Condition 01/06/21: cervical fusion C567 anterior approach. Reports x- ray at follow-up 01/24/21 looked good. Sees doctor again next week 03/02/21. Since surgery started off feeling better, now reports some good days, some bad days with pain, still taking some pain pills (a couple days per week.) Pain is right sided more than left, sometimes radiating into right UE, right shoulder blade. Symptoms similar to before surgery but not as bad. Has been using ice, states was told by physician to only use ice, not heat at first after surgery. Has been doing shoulder shrugs, neck turning exercises, looking up and down. Denies N/T. Also seeing a doctor due to bilateral leg pain right greater than left, keeping her up at night. More pain when first stands up from sitting. Getting injections in knees tomorrow. Trying to walk about 1/2 hour per day abut severity of pain limits her mobiity. Prior Treatments and Tests No recent x-ray or MRI. Has had injections bilateral LE's, last 1 1/2 years. Also history of neck injections. Future Testing and Treatments Planned knee injections tomorrow. Follow-up with surgeon 03/02/21 Treatment Goals Patient/Caregiver Goals Decrease pain, increase her activity tolerance. PT-OP-F Manual Assessment Start: 02/20/21 08:21 Freq: Status: Active Protocol: Document 02/21/21 09:47 [facility] (Rec: 02/21/21 14:27 [facility] [id number]) Manual Assessments Soft Tissue Assessment Soft Tissue Mobility Assessment increased soft tissue tightness bilateral c/s and upper traps right greater than left, right periscapular sregion PT-OP-G Mobility & Gait Start: 02/20/21 08:21 Freq: Status: Active Protocol: Document 02/21/21 09:47 [facility] (Rec: 02/21/21 14:27 [facility] [id number]) OP Mobility Evaluation Bed Mobility Rolling independent with log roll Supine to and from Sit independent with log roll PT-OP-H Neuro Start: 02/20/21 08:21 Freq: Status: Active Protocol: Document 02/21/21 09:47 [facility] (Rec: 02/21/21 14:27 [facility] [id number]) Sensation Evaluation Gross Sensation Gross Sensation WNL PT-OP-J Posture/Palpation/Skin Start: 02/20/21 08:21 Freq: Status: Active Protocol: Document 02/21/21 09:47 [facility] (Rec: 02/21/21 14:27 [facility] [id number]) Posture Evaluation Position Standing Head/C-Spine Posture Forward Head T-Spine Posture Increased Kyphosis L-Spine Posture Increased Lordosis Shoulder Posture (L) Rounded,(R) Rounded Shoulder Subluxation Position (L) Anterior,(R) Anterior Scapula Posture (L) Protracted,(R) Protracted Hip Posture (L) Externally Rotated,(R) Externally Rotated Foot Arch (L) Low Arch,(R) Low Arch PT-OP-K Range of Motion Start: 02/20/21 08:21 Freq: Status: Active Protocol: Document 02/21/21 09:47 [facility] (Rec: 02/21/21 14:27 [facility] [id number]) Cervical Spine Range of Motion Cervical Spine Active Testing Position Sitting Flexion 45 Extension 12 Rotation Left 39 Lateral Flexion Left 10 Lateral Flexion Right 35 ROM Limitations Soft Tissue Tightness,Pain Lumbar Spine Range of Motion Lumbar Spine Active ROM Limitations Soft Tissue Tightness,Pain Comments moderate decrease in ROM all motions except flexion Shoulder Goniometric Range of Motion Shoulder justin Shoulder ROM WFL Yes Comments neck painful with movement Elbow/Forearm Range of Motion Elbow/Forearm justin Elbow/Forearm ROM WFL Yes PT-OP-M Strength Start: 02/20/21 08:21 Freq: Status: Active Protocol: Document 02/21/21 09:47 [facility] (Rec: 02/21/21 14:27 [facility] [id number]) Cervical Spine Strength Cervical Spine Manual Muscle Testing Comments not tested due to recent surgery Trunk Strength Trunk Manual Muscle Testing Comments not tested due to recent surgery Shoulder Strength Shoulder Manual Muscle Testing justin Comments no testing due to recent surgery Hand Second Hand/Pinch Strength Hand Dominance Hand Dominance Right Hand Strength Right Second Hand (lbs) 35 Left Second Hand (lbs) 40 Hip Strength Hip Manual Muscle Testing justin Comments no MMT due to recent surgery, no straining PT-OP-Q Treatments Start: 02/20/21 08:21 Freq: Status: Active Protocol: Document 02/23/21 09:47 [facility] (Rec: 02/23/21 10:31 [facility] [id number]) Therapeutic Exercises Supine Exercises cervical rotation. Reps/Minutes 5x pec major stretch Reps/Minutes 2x30 [place] stsretch Supine Exercise Name pec minor stretch Reps/Minutes 2x30 Comments hands behind head, relax elbows down posture press Reps/Minutes 5x10 Standing Exercises row, shoulder extension Resistance L1 TB Reps/Minutes 10x5 wall posture Reps/Minutes 3x5 Manual Therapy Treatment Soft Tissue Mobilization 1 Body Location c/s, [place], LS Self-Care/Home Management Treatment Education Other Education logroll in and out of bed sitting posture and body mechanics especially related to use of laptop downsize purse standing posture PT-OP-T Assessment and Plan Start: 02/20/21 08:21 Freq: Status: Active Protocol: Document 02/23/21 09:47 [facility] (Rec: 02/23/21 10:31 [facility] [id number]) Physical Therapy Assessment Goals Four Impairment postural dysfunction Short Term Goal (STG) Patient will demonstrate good understanding of neutral postural alignment and be independent with HEP for postural correction and stabilization STG Duration 04/10/21 Beef Grader Goal (LTG) Patient will be able to self- correct postural alignment without physical or verbal cues for improved spinal functioning and activity tolerance. LTG Duration 05/22/21 Three Impairment bilateral LE pain as high as 7 /10 interrupting sleep and mobility Beef Grader Goal (LTG) Patient able to return to all usual activities including walking, and be able to sleep without interruption due to pain in LE's LTG Duration 05/22/21 Two Impairment Pain neck and UE's right greater than left as high as 6 /10 Alf Goal (LTG) Patient will be able to do all usual activities with pain no greater than 2/10 LTG Duration 05/22/21 One Impairment neck and shoulder disability index score 40% Alf Goal (LTG) Decrease neck and shoulder disability index score to no greater than 15% as measure of improved neck and shoulder function. LTG Duration 05/22/21 Assessment Summary Assessment Patient had didfficulty with standing posture press, needed cues to correct posture without straining or causing pain, better tolerance in supine. Demonstsrated good understanding of education regarding neutral posture in standing and sitting, with computer work and reading, plans modifications to how she positions herself. decreased soft tissue tension and pain in neck with manual techniques . Reported decreased pain already after knee injections yesterday. No treatment to LE's due to recent injections. Physical Therapy Plan Frequency and Duration Frequency of Treatment 2x/Week Duration of Treatment 12 weeks Plan of Care Start Date 02/21/21 Plan of Care End Date 05/22/21 Next Visit Focus/Plan Next Note Type Treatment Note Next Visit Plan Assess response to today's treatment. Continue PT per POC.
--- NOTE | 2021-03-01 08:57 | PT.OTN ---
Current Diagnoses Pain in right hip (02/28/21) Pain in left hip (02/28/21) Cervicalgia (02/28/21) Abnormal posture (02/28/21) Weakness (02/28/21) Physical Therapy Treatment Note PT-OP-A Visit Information Start: 02/20/21 08:21 Freq: Status: Active Protocol: Document 02/28/21 10:31 [facility] (Rec: 02/28/21 11:22 [facility] [id number]) Out-Patient Physical Therapy Visit Information Visit Information Visit Type Treatment Note Visit Note Bad day yesterday, everything hurt, left arm went numb yesterday afternoon for 45 min ; used heat, took 2 aspirirn and used heating pad wrapped around arm, went away. Was watching TV at this time. Also reports whole body hurting, maybe due to housecleaning the two days prior. Visit Start Time 10:30 Visit Stop Time 11:25 Total Visit Minutes 55 Evaluation Information Evaluation Date 02/21/21 PT-OP-B Current Condition Start: 02/20/21 08:21 Freq: Status: Active Protocol: Document 02/28/21 10:31 [facility] (Rec: 02/28/21 11:22 [facility] [id number]) Current Condition History of Current Condition Onset Date 01/06/21 Current Complaints persistent pain neck, right UE pain, bilateral LE pain, unpredictable. History of Current Condition 01/06/21: cervical fusion C567 anterior approach. Reports x- ray at follow-up 01/24/21 looked good. Sees doctor again next week 03/02/21. Since surgery started off feeling better, now reports some good days, some bad days with pain, still taking some pain pills (a couple days per week.) Pain is right sided more than left, sometimes radiating into right UE, right shoulder blade. Symptoms similar to before surgery but not as bad. Has been using ice, states was told by physician to only use ice, not heat at first after surgery. Has been doing shoulder shrugs, neck turning exercises, looking up and down. Denies N/T. Also seeing a doctor due to bilateral leg pain right greater than left, keeping her up at night. More pain when first stands up from sitting. Getting injections in knees tomorrow. Trying to walk about 1/2 hour per day abut severity of pain limits her mobiity. Prior Treatments and Tests No recent x-ray or MRI. Has had injections bilateral LE's, last 1 1/2 years. Also history of neck injections. Future Testing and Treatments Planned knee injections tomorrow. Follow-up with surgeon 03/02/21 Treatment Goals Patient/Caregiver Goals Decrease pain, increase her activity tolerance. PT-OP-F Manual Assessment Start: 02/20/21 08:21 Freq: Status: Active Protocol: Document 02/21/21 09:47 [facility] (Rec: 02/21/21 14:27 [facility] [id number]) Manual Assessments Soft Tissue Assessment Soft Tissue Mobility Assessment increased soft tissue tightness bilateral c/s and upper traps right greater than left, right periscapular sregion PT-OP-G Mobility & Gait Start: 02/20/21 08:21 Freq: Status: Active Protocol: Document 02/21/21 09:47 [facility] (Rec: 02/21/21 14:27 [facility] [id number]) OP Mobility Evaluation Bed Mobility Rolling independent with log roll Supine to and from Sit independent with log roll PT-OP-H Neuro Start: 02/20/21 08:21 Freq: Status: Active Protocol: Document 02/21/21 09:47 [facility] (Rec: 02/21/21 14:27 [facility] [id number]) Sensation Evaluation Gross Sensation Gross Sensation WNL PT-OP-J Posture/Palpation/Skin Start: 02/20/21 08:21 Freq: Status: Active Protocol: Document 02/21/21 09:47 [facility] (Rec: 02/21/21 14:27 [facility] [id number]) Posture Evaluation Position Standing Head/C-Spine Posture Forward Head T-Spine Posture Increased Kyphosis L-Spine Posture Increased Lordosis Shoulder Posture (L) Rounded,(R) Rounded Shoulder Subluxation Position (L) Anterior,(R) Anterior Scapula Posture (L) Protracted,(R) Protracted Hip Posture (L) Externally Rotated,(R) Externally Rotated Foot Arch (L) Low Arch,(R) Low Arch PT-OP-K Range of Motion Start: 02/20/21 08:21 Freq: Status: Active Protocol: Document 02/21/21 09:47 [facility] (Rec: 02/21/21 14:27 [facility] [id number]) Cervical Spine Range of Motion Cervical Spine Active Testing Position Sitting Flexion 45 Extension 12 Rotation Left 39 Lateral Flexion Left 10 Lateral Flexion Right 35 ROM Limitations Soft Tissue Tightness,Pain Lumbar Spine Range of Motion Lumbar Spine Active ROM Limitations Soft Tissue Tightness,Pain Comments moderate decrease in ROM all motions except flexion Shoulder Goniometric Range of Motion Shoulder justin Shoulder ROM WFL Yes Comments neck painful with movement Elbow/Forearm Range of Motion Elbow/Forearm justin Elbow/Forearm ROM WFL Yes PT-OP-M Strength Start: 02/20/21 08:21 Freq: Status: Active Protocol: Document 02/21/21 09:47 [facility] (Rec: 02/21/21 14:27 [facility] [id number]) Cervical Spine Strength Cervical Spine Manual Muscle Testing Comments not tested due to recent surgery Trunk Strength Trunk Manual Muscle Testing Comments not tested due to recent surgery Shoulder Strength Shoulder Manual Muscle Testing justin Comments no testing due to recent surgery Hand Health Insurance Adjuster/Pinch Strength Hand Dominance Hand Dominance Right Hand Strength Right Health Insurance Adjuster (lbs) 35 Left Health Insurance Adjuster (lbs) 40 Hip Strength Hip Manual Muscle Testing justin Comments no MMT due to recent surgery, no straining PT-OP-Q Treatments Start: 02/20/21 08:21 Freq: Status: Active Protocol: Document 02/28/21 10:31 [facility] (Rec: 02/28/21 11:22 [facility] [id number]) Cardio Equipment Recumbent Stepper (Sci-Fit) Duration (Minutes) 6 Resistance 1 Seat Position 9 Other cues for upright posture Therapeutic Exercises Sitting Exercises chin tuck Reps/Minutes 3x5 Standing Exercises row, shoulder extension Resistance L1 TB Reps/Minutes 10x5 wall posture Reps/Minutes 3x5 Self-Care/Home Management Treatment Education Patient Education Body Mechanics,Posture Other Education safe performance of housecleaning, postural alignment, core stab, and correct body mechanics PT-OP-R Modalities Start: 02/20/21 08:21 Freq: Status: Active Protocol: Document 02/23/21 09:47 [facility] (Rec: 02/23/21 16:53 [facility] [id number]) Hot Pack/Cold Pack Treatment Hot Pack Location cervical spine Patient Position Hooklying Treatment Duration (minutes) 15 Patient Tolerance Good PT-OP-T Assessment and Plan Start: 02/20/21 08:21 Freq: Status: Active Protocol: Document 02/28/21 10:31 [facility] (Rec: 02/28/21 11:22 [facility] [id number]) Physical Therapy Assessment Goals Four Impairment postural dysfunction Short Term Goal (STG) Patient will demonstrate good understanding of neutral postural alignment and be independent with HEP for postural correction and stabilization STG Duration 04/10/21 Ob Tech Goal (LTG) Patient will be able to self- correct postural alignment without physical or verbal cues for improved spinal functioning and activity tolerance. LTG Duration 05/22/21 Three Impairment bilateral LE pain as high as 7 /10 interrupting sleep and mobility Ob Tech Goal (LTG) Patient able to return to all usual activities including walking, and be able to sleep without interruption due to pain in LE's LTG Duration 05/22/21 Two Impairment Pain neck and UE's right greater than left as high as 6 /10 Ob Tech Goal (LTG) Patient will be able to do all usual activities with pain no greater than 2/10 LTG Duration 05/22/21 One Impairment neck and shoulder disability index score 40% Fdc Goal (LTG) Decrease neck and shoulder disability index score to no greater than 15% as measure of improved neck and shoulder function. LTG Duration 05/22/21 Assessment Summary Assessment Patient with increased symptoms after housework including some numbness in left UE, went away after aspirin. Patient instructed in correct body mechanics with neutral postural alignment, and safety tips for spinal protection with housecleaning; she demonstrated good understanding. Continue with deep breathing work both with ther ex and for relaxation of tight musculatrue. Patient questioned about possible cardiac issues, unusual symptoms in women to be aware of. Physical Therapy Plan Frequency and Duration Frequency of Treatment 2x/Week Duration of Treatment 12 weeks Plan of Care Start Date 02/21/21 Plan of Care End Date 05/22/21 Next Visit Focus/Plan Next Note Type Treatment Note Next Visit Plan Assess response to today's treatment. Review body mechanics for household activities. Continue PT per POC.
--- NOTE | 2021-03-03 11:19 | PT.OTN ---
Current Diagnoses Pain in right hip (03/03/21) Pain in left hip (03/03/21) Cervicalgia (03/03/21) Abnormal posture (03/03/21) Weakness (03/03/21) Physical Therapy Treatment Note PT-OP-A Visit Information Start: 02/20/21 08:21 Freq: Status: Active Protocol: Document 03/03/21 10:35 SP (Rec: 03/03/21 14:37 SP [id number]) Out-Patient Physical Therapy Visit Information Visit Information Visit Type Treatment Note Visit Start Time 10:35 Visit Stop Time 11:19 Total Visit Minutes 44 Visit Number 4 Number of CONGRESSIONAL AIDE Visits 1 Evaluation Information Evaluation Date 02/21/21 PT-OP-B Current Condition Start: 02/20/21 08:21 Freq: Status: Active Protocol: Document 02/28/21 10:31 SAK (Rec: 02/28/21 11:22 SAK [id number]) Current Condition History of Current Condition Onset Date 01/06/21 Current Complaints persistent pain neck, right UE pain, bilateral LE pain, unpredictable. History of Current Condition 01/06/21: cervical fusion C567 anterior approach. Reports x- ray at follow-up 01/24/21 looked good. Sees doctor again next week 03/02/21. Since surgery started off feeling better, now reports some good days, some bad days with pain, still taking some pain pills (a couple days per week.) Pain is right sided more than left, sometimes radiating into right UE, right shoulder blade. Symptoms similar to before surgery but not as bad. Has been using ice, states was told by physician to only use ice, not heat at first after surgery. Has been doing shoulder shrugs, neck turning exercises, looking up and down. Denies N/T. Also seeing a doctor due to bilateral leg pain right greater than left, keeping her up at night. More pain when first stands up from sitting. Getting injections in knees tomorrow. Trying to walk about 1/2 hour per day abut severity of pain limits her mobiity. Prior Treatments and Tests No recent x-ray or MRI. Has had injections bilateral LE's, last 1 1/2 years. Also history of neck injections. Future Testing and Treatments Planned knee injections tomorrow. Follow-up with surgeon 03/02/21 Treatment Goals Patient/Caregiver Goals Decrease pain, increase her activity tolerance. PT-OP-C Subjective Start: 02/20/21 08:21 Freq: Status: Active Protocol: Document 03/03/21 10:35 SP (Rec: 03/03/21 14:37 SP [id number]) OP-PT Subjective Patient Comments Patient Comments Pt reported her L arm numbness is gone but both of her legs are having pain and kept her from sleeping last night. PT-OP-F Manual Assessment Start: 02/20/21 08:21 Freq: Status: Active Protocol: Document 02/21/21 09:47 SAK (Rec: 02/21/21 14:27 SAK [id number]) Manual Assessments Soft Tissue Assessment Soft Tissue Mobility Assessment increased soft tissue tightness bilateral c/s and upper traps right greater than left, right periscapular sregion PT-OP-G Mobility & Gait Start: 02/20/21 08:21 Freq: Status: Active Protocol: Document 02/21/21 09:47 SAK (Rec: 02/21/21 14:27 [facility] [id number]) OP Mobility Evaluation Bed Mobility Rolling independent with log roll Supine to and from Sit independent with log roll PT-OP-H Neuro Start: 02/20/21 08:21 Freq: Status: Active Protocol: Document 02/21/21 09:47 SAK (Rec: 02/21/21 14:27 [facility] [id number]) Sensation Evaluation Gross Sensation Gross Sensation WNL PT-OP-J Posture/Palpation/Skin Start: 02/20/21 08:21 Freq: Status: Active Protocol: Document 02/21/21 09:47 SAK (Rec: 02/21/21 14:27 [facility] [id number]) Posture Evaluation Position Standing Head/C-Spine Posture Forward Head T-Spine Posture Increased Kyphosis L-Spine Posture Increased Lordosis Shoulder Posture (L) Rounded,(R) Rounded Shoulder Subluxation Position (L) Anterior,(R) Anterior Scapula Posture (L) Protracted,(R) Protracted Hip Posture (L) Externally Rotated,(R) Externally Rotated Foot Arch (L) Low Arch,(R) Low Arch PT-OP-K Range of Motion Start: 02/20/21 08:21 Freq: Status: Active Protocol: Document 02/21/21 09:47 SAK (Rec: 02/21/21 14:27 [facility] [id number]) Cervical Spine Range of Motion Cervical Spine Active Testing Position Sitting Flexion 45 Extension 12 Rotation Left 39 Lateral Flexion Left 10 Lateral Flexion Right 35 ROM Limitations Soft Tissue Tightness,Pain Lumbar Spine Range of Motion Lumbar Spine Active ROM Limitations Soft Tissue Tightness,Pain Comments moderate decrease in ROM all motions except flexion Shoulder Goniometric Range of Motion Shoulder justin Shoulder ROM WFL Yes Comments neck painful with movement Elbow/Forearm Range of Motion Elbow/Forearm justin Elbow/Forearm ROM WFL Yes PT-OP-M Strength Start: 02/20/21 08:21 Freq: Status: Active Protocol: Document 02/21/21 09:47 SAK (Rec: 02/21/21 14:27 [facility] [id number]) Cervical Spine Strength Cervical Spine Manual Muscle Testing Comments not tested due to recent surgery Trunk Strength Trunk Manual Muscle Testing Comments not tested due to recent surgery Shoulder Strength Shoulder Manual Muscle Testing justin Comments no testing due to recent surgery Hand Senior Graduate Advisor/Pinch Strength Hand Dominance Hand Dominance Right Hand Strength Right Senior Graduate Advisor (lbs) 35 Left Senior Graduate Advisor (lbs) 40 Hip Strength Hip Manual Muscle Testing justin Comments no MMT due to recent surgery, no straining PT-OP-Q Treatments Start: 02/20/21 08:21 Freq: Status: Active Protocol: Document 03/03/21 10:35 SP (Rec: 03/03/21 14:37 SP [id number]) Cardio Equipment Recumbent Stepper (Sci-Fit) Duration (Minutes) 6 Resistance 1 Seat Position 10 (9 felt to close today) Other cued upright posture, 55 RPM Therapeutic Exercises Standing Exercises row, shoulder extension Resistance L1 TB> #2 (provided for HEP) Reps/Minutes 10x5 Comments Cued scap stab depression during eccentric return and CS back neutral wall posture Standing Exercise Name provided hand out Resistance mirror self feedback Equipment Used 1. back to wall> 2. dowel behind back for assimulation hip hinge wt shift Reps/Minutes 8 min Comments extra time spent Other Exercises self STMs Other Exercise Name paraspinals, gluts Side bilateral Reps/Minutes 1 min Comments good feedback tolerance, ball in sock for mid>upper back. Self-Care/Home Management Treatment Education Patient Education Body Mechanics,Posture Other Education Extra time spent on carryover posture alignment, safe performance of housecleaning, core stab, and correct body mechanics wt shifting between BLE with hip hinge if need reach and CS neutral w/ chin tuck to look down PT-OP-R Modalities Start: 02/20/21 08:21 Freq: Status: Active Protocol: Document 02/23/21 09:47 SAK (Rec: 02/23/21 16:53 SAK [id number]) Hot Pack/Cold Pack Treatment Hot Pack Location cervical spine Patient Position Hooklying Treatment Duration (minutes) 15 Patient Tolerance Good PT-OP-T Assessment and Plan Start: 02/20/21 08:21 Freq: Status: Active Protocol: Document 03/03/21 10:35 SP (Rec: 03/03/21 14:37 SP [id number]) Physical Therapy Assessment Goals Four Impairment postural dysfunction Short Term Goal (STG) Patient will demonstrate good understanding of neutral postural alignment and be independent with HEP for postural correction and stabilization 03/03/21: progressing, pt requires cuing for alignment and mirror for self feedback, introduced dowel at back during assimulation sweeping/ vacuum. STG Duration 04/10/21 [employer] Goal (LTG) Patient will be able to self- correct postural alignment without physical or verbal cues for improved spinal functioning and activity tolerance. LTG Duration 05/22/21 Three Impairment bilateral LE pain as high as 7 /10 interrupting sleep and mobility [employer] Goal (LTG) Patient able to return to all usual activities including walking, and be able to sleep without interruption due to pain in LE's LTG Duration 05/22/21 Two Impairment Pain neck and UE's right greater than left as high as 6 /10 [facility] Goal (LTG) Patient will be able to do all usual activities with pain no greater than 2/10 LTG Duration 05/22/21 One Impairment neck and shoulder disability index score 40% [employer] Goal (LTG) Decrease neck and shoulder disability index score to no greater than 15% as measure of improved neck and shoulder function. LTG Duration 05/22/21 Assessment Summary Assessment Pt requires mod cuing for head /neck/trunk alignment during wall posture and carryover assimulation sweeping hip hinge wt shift between BLEs. Initiated self STMs back to wall with racquetball at wall to decrease tightness with fair response. Provided hose to put ball in and access low- mid back challenge reaching. Physical Therapy Plan Frequency and Duration Frequency of Treatment 2x/Week Duration of Treatment 12 weeks Plan of Care Start Date 02/21/21 Plan of Care End Date 05/22/21 Next Visit Focus/Plan Next Note Type Treatment Note Next Visit Plan Assess response to today's treatment HEP review and posture trng. POC: Continue to Review body mechanics for household activities.
--- NOTE | 2021-03-09 17:20 | PT.OTN ---
Current Diagnoses Pain in right hip (03/09/21) Pain in left hip (03/09/21) Cervicalgia (03/09/21) Abnormal posture (03/09/21) Weakness (03/09/21) Physical Therapy Treatment Note PT-OP-A Visit Information Start: 02/20/21 08:21 Freq: Status: Active Protocol: Document 03/09/21 09:45 SAK (Rec: 03/09/21 10:36 SAK [id number]) Out-Patient Physical Therapy Visit Information Visit Information Visit Type Treatment Note Visit Start Time 09:45 Visit Stop Time 10:44 Total Visit Minutes 59 Visit Number 6 PT-OP-B Current Condition Start: 02/20/21 08:21 Freq: Status: Active Protocol: Document 03/09/21 09:45 SAK (Rec: 03/09/21 10:36 SAK [id number]) Current Condition History of Current Condition Onset Date 01/06/21 Current Complaints persistent pain neck, right UE pain, bilateral LE pain, unpredictable. History of Current Condition 01/06/21: cervical fusion C567 anterior approach. Reports x- ray at follow-up 01/24/21 looked good. Sees doctor again next week 03/02/21. Since surgery started off feeling better, now reports some good days, some bad days with pain, still taking some pain pills (a couple days per week.) Pain is right sided more than left, sometimes radiating into right UE, right shoulder blade. Symptoms similar to before surgery but not as bad. Has been using ice, states was told by physician to only use ice, not heat at first after surgery. Has been doing shoulder shrugs, neck turning exercises, looking up and down. Denies N/T. Also seeing a doctor due to bilateral leg pain right greater than left, keeping her up at night. More pain when first stands up from sitting. Getting injections in knees tomorrow. Trying to walk about 1/2 hour per day abut severity of pain limits her mobiity. Prior Treatments and Tests No recent x-ray or MRI. Has had injections bilateral LE's, last 1 1/2 years. Also history of neck injections. Future Testing and Treatments Planned knee injections tomorrow. Follow-up with surgeon 03/02/21 PT-OP-C Subjective Start: 02/20/21 08:21 Freq: Status: Active Protocol: Document 03/09/21 09:45 SAK (Rec: 03/09/21 10:36 [facility] [id number]) OP-PT Subjective Patient Comments Patient Comments Reports having wrist and low back x-rays, also being given a steroid pack. Neck pain seems to be improving. Flying to [place] next week, concerned about being able to tolerate the trip. PT-OP-F Manual Assessment Start: 02/20/21 08:21 Freq: Status: Active Protocol: Document 02/21/21 09:47 SAK (Rec: 02/21/21 14:27 [facility] [id number]) Manual Assessments Soft Tissue Assessment Soft Tissue Mobility Assessment increased soft tissue tightness bilateral c/s and upper traps right greater than left, right periscapular sregion PT-OP-G Mobility & Gait Start: 02/20/21 08:21 Freq: Status: Active Protocol: Document 02/21/21 09:47 SAK (Rec: 02/21/21 14:27 [facility] [id number]) OP Mobility Evaluation Bed Mobility Rolling independent with log roll Supine to and from Sit independent with log roll PT-OP-H Neuro Start: 02/20/21 08:21 Freq: Status: Active Protocol: Document 02/21/21 09:47 SAK (Rec: 02/21/21 14:27 [facility] [id number]) Sensation Evaluation Gross Sensation Gross Sensation WNL PT-OP-J Posture/Palpation/Skin Start: 02/20/21 08:21 Freq: Status: Active Protocol: Document 02/21/21 09:47 [facility] (Rec: 02/21/21 14:27 [facility] [id number]) Posture Evaluation Position Standing Head/C-Spine Posture Forward Head T-Spine Posture Increased Kyphosis L-Spine Posture Increased Lordosis Shoulder Posture (L) Rounded,(R) Rounded Shoulder Subluxation Position (L) Anterior,(R) Anterior Scapula Posture (L) Protracted,(R) Protracted Hip Posture (L) Externally Rotated,(R) Externally Rotated Foot Arch (L) Low Arch,(R) Low Arch PT-OP-K Range of Motion Start: 02/20/21 08:21 Freq: Status: Active Protocol: Document 02/21/21 09:47 SAK (Rec: 02/21/21 14:27 [facility] [id number]) Cervical Spine Range of Motion Cervical Spine Active Testing Position Sitting Flexion 45 Extension 12 Rotation Left 39 Lateral Flexion Left 10 Lateral Flexion Right 35 ROM Limitations Soft Tissue Tightness,Pain Lumbar Spine Range of Motion Lumbar Spine Active ROM Limitations Soft Tissue Tightness,Pain Comments moderate decrease in ROM all motions except flexion Shoulder Goniometric Range of Motion Shoulder justin Shoulder ROM WFL Yes Comments neck painful with movement Elbow/Forearm Range of Motion Elbow/Forearm justin Elbow/Forearm ROM WFL Yes PT-OP-M Strength Start: 02/20/21 08:21 Freq: Status: Active Protocol: Document 02/21/21 09:47 SAK (Rec: 02/21/21 14:27 SAK [id number]) Cervical Spine Strength Cervical Spine Manual Muscle Testing Comments not tested due to recent surgery Trunk Strength Trunk Manual Muscle Testing Comments not tested due to recent surgery Shoulder Strength Shoulder Manual Muscle Testing justin Comments no testing due to recent surgery Hand Prefabricated Houses Trimmer/Pinch Strength Hand Dominance Hand Dominance Right Hand Strength Right Prefabricated Houses Trimmer (lbs) 35 Left Prefabricated Houses Trimmer (lbs) 40 Hip Strength Hip Manual Muscle Testing justin Comments no MMT due to recent surgery, no straining PT-OP-Q Treatments Start: 02/20/21 08:21 Freq: Status: Active Protocol: Document 03/09/21 09:45 SAK (Rec: 03/09/21 10:36 SAK [id number]) Cardio Equipment Recumbent Stepper (Sci-Fit) Duration (Minutes) 10 Resistance 1 Other cued upright posture, 50 RPM Therapeutic Exercises Supine Exercises pec major stretch Reps/Minutes 2x30 [place] stsretch Supine Exercise Name pec minor stretch Reps/Minutes 2x30 Comments hands behind head, relax elbows down, painful left posture press Reps/Minutes 5x10 Sidelying Exercises open book Comments held due to LBP Standing Exercises row, shoulder extension Comments held due to LBP and wrist pain wall posture Comments held due to LBP and wrist pain Manual Therapy Treatment Soft Tissue Mobilization lumbar paraspinals Body Location justin Mobilization Type Myofascial Release Intensity/Depth Moderate Body Position Sidelying 1 Body Location c/s, [place], LS Mobilization Type Myofascial Release,Strumming, Sustained Pressure Intensity/Depth Moderate Body Position Hooklying Self-Care/Home Management Treatment Education Patient Education Body Mechanics,Home Exercise Program,Posture PT-OP-R Modalities Start: 02/20/21 08:21 Freq: Status: Active Protocol: Document 03/09/21 09:45 SAK (Rec: 03/09/21 10:36 [facility] [id number]) Hot Pack/Cold Pack Treatment Hot Pack Location cervical spine, lumbar spine Patient Position Hooklying Treatment Duration (minutes) 15 Patient Tolerance Good PT-OP-T Assessment and Plan Start: 02/20/21 08:21 Freq: Status: Active Protocol: Document 03/09/21 09:45 [facility] (Rec: 03/09/21 10:36 [facility] [id number]) Physical Therapy Assessment Goals Four Impairment postural dysfunction Short Term Goal (STG) Patient will demonstrate good understanding of neutral postural alignment and be independent with HEP for postural correction and stabilization 03/03/21: progressing, pt requires cuing for alignment and mirror for self feedback, introduced dowel at back during assimulation sweeping/ vacuum. STG Duration 04/10/21 [facility] Goal (LTG) Patient will be able to self- correct postural alignment without physical or verbal cues for improved spinal functioning and activity tolerance. LTG Duration 05/22/21 Three Impairment bilateral LE pain as high as 7 /10 interrupting sleep and mobility [facility] Goal (LTG) Patient able to return to all usual activities including walking, and be able to sleep without interruption due to pain in LE's LTG Duration 05/22/21 Two Impairment Pain neck and UE's right greater than left as high as 6 /10 [employer] Goal (LTG) Patient will be able to do all usual activities with pain no greater than 2/10 LTG Duration 05/22/21 One Impairment neck and shoulder disability index score 40% [facility] Goal (LTG) Decrease neck and shoulder disability index score to no greater than 15% as measure of improved neck and shoulder function. LTG Duration 05/22/21 Assessment Summary Assessment increased pain in lumbar spine ; ther ex modified today due to back and wrist pain, x-rays to be done today. Patient has been started on steriod pack with taper to address pain. Patient demonstrates good understanding of HEP to be performed while gone as able and pending outcome of x- rays. Physical Therapy Plan Frequency and Duration Frequency of Treatment 2x/Week Duration of Treatment 12 weeks Plan of Care Start Date 02/21/21 Plan of Care End Date 05/22/21 Next Visit Focus/Plan Next Note Type Treatment Note Next Visit Plan Continue PT per POC pending outcome of x-rays and physician recommendations.
--- NOTE | 2021-03-14 11:53 | PT.OTN ---
Current Diagnoses Pain in right hip (03/14/21) Pain in left hip (03/14/21) Cervicalgia (03/14/21) Abnormal posture (03/14/21) Weakness (03/14/21) Physical Therapy Treatment Note PT-OP-A Visit Information Start: 02/20/21 08:21 Freq: Status: Active Protocol: Document 03/14/21 09:49 SAK (Rec: 03/14/21 10:32 SAK [id number]) Out-Patient Physical Therapy Visit Information Visit Information Visit Type Treatment Note Visit Start Time 09:45 Visit Stop Time 10:44 Total Visit Minutes 59 Visit Number 7 PT-OP-B Current Condition Start: 02/20/21 08:21 Freq: Status: Active Protocol: Document 03/14/21 09:49 SAK (Rec: 03/14/21 10:32 SAK [id number]) Current Condition History of Current Condition Onset Date 01/06/21 Current Complaints persistent pain neck, right UE pain, bilateral LE pain, unpredictable. History of Current Condition 01/06/21: cervical fusion C567 anterior approach. Reports x- ray at follow-up 01/24/21 looked good. Sees doctor again next week 03/02/21. Since surgery started off feeling better, now reports some good days, some bad days with pain, still taking some pain pills (a couple days per week.) Pain is right sided more than left, sometimes radiating into right UE, right shoulder blade. Symptoms similar to before surgery but not as bad. Has been using ice, states was told by physician to only use ice, not heat at first after surgery. Has been doing shoulder shrugs, neck turning exercises, looking up and down. Denies N/T. Also seeing a doctor due to bilateral leg pain right greater than left, keeping her up at night. More pain when first stands up from sitting. Getting injections in knees tomorrow. Trying to walk about 1/2 hour per day abut severity of pain limits her mobiity. Prior Treatments and Tests No recent x-ray or MRI. Has had injections bilateral LE's, last 1 1/2 years. Also history of neck injections. Future Testing and Treatments Planned knee injections tomorrow. Follow-up with surgeon 03/02/21 PT-OP-C Subjective Start: 02/20/21 08:21 Freq: Status: Active Protocol: Document 03/14/21 09:49 [facility] (Rec: 03/14/21 10:32 [facility] [id number]) OP-PT Subjective Patient Comments Patient Comments Neck pain a bit better, on and off. Low back bothering her more past few days. Flying tomorrow. x-ray results back; patient to make appointment with doctor. PT-OP-F Manual Assessment Start: 02/20/21 08:21 Freq: Status: Active Protocol: Document 02/21/21 09:47 [facility] (Rec: 02/21/21 14:27 [facility] [id number]) Manual Assessments Soft Tissue Assessment Soft Tissue Mobility Assessment increased soft tissue tightness bilateral c/s and upper traps right greater than left, right periscapular sregion PT-OP-G Mobility & Gait Start: 02/20/21 08:21 Freq: Status: Active Protocol: Document 02/21/21 09:47 [facility] (Rec: 02/21/21 14:27 [facility] [id number]) OP Mobility Evaluation Bed Mobility Rolling independent with log roll Supine to and from Sit independent with log roll PT-OP-H Neuro Start: 02/20/21 08:21 Freq: Status: Active Protocol: Document 02/21/21 09:47 [facility] (Rec: 02/21/21 14:27 [facility] [id number]) Sensation Evaluation Gross Sensation Gross Sensation WNL PT-OP-J Posture/Palpation/Skin Start: 02/20/21 08:21 Freq: Status: Active Protocol: Document 02/21/21 09:47 [facility] (Rec: 02/21/21 14:27 [facility] [id number]) Posture Evaluation Position Standing Head/C-Spine Posture Forward Head T-Spine Posture Increased Kyphosis L-Spine Posture Increased Lordosis Shoulder Posture (L) Rounded,(R) Rounded Shoulder Subluxation Position (L) Anterior,(R) Anterior Scapula Posture (L) Protracted,(R) Protracted Hip Posture (L) Externally Rotated,(R) Externally Rotated Foot Arch (L) Low Arch,(R) Low Arch PT-OP-K Range of Motion Start: 02/20/21 08:21 Freq: Status: Active Protocol: Document 02/21/21 09:47 [facility] (Rec: 02/21/21 14:27 [facility] [id number]) Cervical Spine Range of Motion Cervical Spine Active Testing Position Sitting Flexion 45 Extension 12 Rotation Left 39 Lateral Flexion Left 10 Lateral Flexion Right 35 ROM Limitations Soft Tissue Tightness,Pain Lumbar Spine Range of Motion Lumbar Spine Active ROM Limitations Soft Tissue Tightness,Pain Comments moderate decrease in ROM all motions except flexion Shoulder Goniometric Range of Motion Shoulder justin Shoulder ROM WFL Yes Comments neck painful with movement Elbow/Forearm Range of Motion Elbow/Forearm justin Elbow/Forearm ROM WFL Yes PT-OP-M Strength Start: 02/20/21 08:21 Freq: Status: Active Protocol: Document 02/21/21 09:47 [facility]AK (Rec: 02/21/21 14:27 [facility]AK [id number]) Cervical Spine Strength Cervical Spine Manual Muscle Testing Comments not tested due to recent surgery Trunk Strength Trunk Manual Muscle Testing Comments not tested due to recent surgery Shoulder Strength Shoulder Manual Muscle Testing justin Comments no testing due to recent surgery Hand Dredging Inspector/Pinch Strength Hand Dominance Hand Dominance Right Hand Strength Right Dredging Inspector (lbs) 35 Left Dredging Inspector (lbs) 40 Hip Strength Hip Manual Muscle Testing justin Comments no MMT due to recent surgery, no straining PT-OP-Q Treatments Start: 02/20/21 08:21 Freq: Status: Active Protocol: Document 03/14/21 09:49 SAK (Rec: 03/14/21 10:32 [facility]AK [id number]) Cardio Equipment Recumbent Elliptical ([employer]) Duration (Minutes) 10 Resistance 3 Seat Position 9 Therapeutic Exercises Standing Exercises posterior pelvic tilt Standing Exercise Name spinal flexion in standing Reps/Minutes 3 min Manual Therapy Treatment Soft Tissue Mobilization lumbar paraspinals Body Location justin Mobilization Type Myofascial Release,Strumming Intensity/Depth Moderate Body Position Sidelying Comments with manual facilitation into lumbar flexion Self-Care/Home Management Treatment Education Other Education Patient education regarding x- ray, stenosis, spinal flexion for comfort, imortance of strengthening. benefits of aquatic exercise. PT-OP-R Modalities Start: 02/20/21 08:21 Freq: Status: Active Protocol: Document 03/09/21 09:45 SAK (Rec: 03/09/21 10:36 [facility]AK [id number]) Hot Pack/Cold Pack Treatment Hot Pack Location cervical spine, lumbar spine Patient Position Hooklying Treatment Duration (minutes) 15 Patient Tolerance Good PT-OP-T Assessment and Plan Start: 02/20/21 08:21 Freq: Status: Active Protocol: Document 03/14/21 09:49 [facility] (Rec: 03/14/21 10:32 [facility] [id number]) Physical Therapy Assessment Goals Four Impairment postural dysfunction Short Term Goal (STG) Patient will demonstrate good understanding of neutral postural alignment and be independent with HEP for postural correction and stabilization 03/03/21: progressing, pt requires cuing for alignment and mirror for self feedback, introduced dowel at back during assimulation sweeping/ vacuum. STG Duration 04/10/21 [facility] Goal (LTG) Patient will be able to self- correct postural alignment without physical or verbal cues for improved spinal functioning and activity tolerance. LTG Duration 05/22/21 Three Impairment bilateral LE pain as high as 7 /10 interrupting sleep and mobility Life Teacher Goal (LTG) Patient able to return to all usual activities including walking, and be able to sleep without interruption due to pain in LE's LTG Duration 05/22/21 Two Impairment Pain neck and UE's right greater than left as high as 6 /10 [facility] Goal (LTG) Patient will be able to do all usual activities with pain no greater than 2/10 LTG Duration 05/22/21 One Impairment neck and shoulder disability index score 40% Life Teacher Goal (LTG) Decrease neck and shoulder disability index score to no greater than 15% as measure of improved neck and shoulder function. LTG Duration 05/22/21 Assessment Summary Assessment x-ray results lumbar spine: 5 [id number] vertebrae are present. There is straightening of normal lumbar curvature. There is severe disc space narrowing at L4-5 and L5-S1. Severe foraminal narrowing is noted L5-S1, moderate to severe L4-5. There is otherwise mild to moderate disc space narrowing throughout the remainder of the lumbar spine. No vertebral body compression fractures. No suspicious bony lesions. wrist x-ray: negative for fracture sacrum and coccyx x-ray: negative Emphasis on spinal flexion exercises for spinal comfort, importance of core strengthening, benefits of aquatic exercise (patient to be at son's in [place] with swimming pool for a couple weeks) Physical Therapy Plan Frequency and Duration Frequency of Treatment 2x/Week Duration of Treatment 12 weeks Plan of Care Start Date 02/21/21 Plan of Care End Date 05/22/21 Next Visit Focus/Plan Next Note Type Treatment Note Next Visit Plan See patient when she returns from vacation to see family in [place]. Continue PT as indicated. Assess response to ultrasound today and increased manual treatment. Also assess response to aquatic exercise.
--- NOTE | 2021-03-30 15:37 | PT.OTN ---
Current Diagnoses Pain in right hip (03/30/21) Pain in left hip (03/30/21) Cervicalgia (03/30/21) Abnormal posture (03/30/21) Weakness (03/30/21) Physical Therapy Treatment Note PT-OP-A Visit Information Start: 02/20/21 08:21 Freq: Status: Active Protocol: Document 03/30/21 09:48 [facility] (Rec: 03/30/21 10:33 SAK [id number]) Out-Patient Physical Therapy Visit Information Visit Information Visit Type Treatment Note Visit Start Time 09:45 Visit Stop Time 10:44 Total Visit Minutes 56 Visit Number 8 PT-OP-B Current Condition Start: 02/20/21 08:21 Freq: Status: Active Protocol: Document 03/30/21 09:48 [facility]AK (Rec: 03/30/21 10:33 SAK [id number]) Current Condition History of Current Condition Onset Date 01/06/21 Current Complaints persistent pain neck, right UE pain, bilateral LE pain, unpredictable. History of Current Condition 01/06/21: cervical fusion C567 anterior approach. Reports x- ray at follow-up 01/24/21 looked good. Sees doctor again next week 03/02/21. Since surgery started off feeling better, now reports some good days, some bad days with pain, still taking some pain pills (a couple days per week.) Pain is right sided more than left, sometimes radiating into right UE, right shoulder blade. Symptoms similar to before surgery but not as bad. Has been using ice, states was told by physician to only use ice, not heat at first after surgery. Has been doing shoulder shrugs, neck turning exercises, looking up and down. Denies N/T. Also seeing a doctor due to bilateral leg pain right greater than left, keeping her up at night. More pain when first stands up from sitting. Getting injections in knees tomorrow. Trying to walk about 1/2 hour per day abut severity of pain limits her mobiity. Prior Treatments and Tests No recent x-ray or MRI. Has had injections bilateral LE's, last 1 1/2 years. Also history of neck injections. Future Testing and Treatments Planned knee injections tomorrow. Follow-up with surgeon 03/02/21 PT-OP-C Subjective Start: 02/20/21 08:21 Freq: Status: Active Protocol: Document 03/30/21 09:48 [facility] (Rec: 03/30/21 10:33 [facility] [id number]) OP-PT Subjective Patient Comments Patient Comments Feels ultrasound helpful, then also steroid pack seemed tohelp. States the pain moves around. While gone did water walking which seemed a little helpful. Again having pain in neck and back. Hasn't worn wrist brace for about a week. Did some exercises while gone . Pain level 5/10 both neck and back. PT-OP-F Manual Assessment Start: 02/20/21 08:21 Freq: Status: Active Protocol: Document 02/21/21 09:47 [facility] (Rec: 02/21/21 14:27 [facility] [id number]) Manual Assessments Soft Tissue Assessment Soft Tissue Mobility Assessment increased soft tissue tightness bilateral c/s and upper traps right greater than left, right periscapular sregion PT-OP-G Mobility & Gait Start: 02/20/21 08:21 Freq: Status: Active Protocol: Document 02/21/21 09:47 [facility] (Rec: 02/21/21 14:27 [facility] [id number]) OP Mobility Evaluation Bed Mobility Rolling independent with log roll Supine to and from Sit independent with log roll PT-OP-H Neuro Start: 02/20/21 08:21 Freq: Status: Active Protocol: Document 02/21/21 09:47 [facility] (Rec: 02/21/21 14:27 [facility] [id number]) Sensation Evaluation Gross Sensation Gross Sensation WNL PT-OP-J Posture/Palpation/Skin Start: 02/20/21 08:21 Freq: Status: Active Protocol: Document 02/21/21 09:47 [facility] (Rec: 02/21/21 14:27 [facility] [id number]) Posture Evaluation Position Standing Head/C-Spine Posture Forward Head T-Spine Posture Increased Kyphosis L-Spine Posture Increased Lordosis Shoulder Posture (L) Rounded,(R) Rounded Shoulder Subluxation Position (L) Anterior,(R) Anterior Scapula Posture (L) Protracted,(R) Protracted Hip Posture (L) Externally Rotated,(R) Externally Rotated Foot Arch (L) Low Arch,(R) Low Arch PT-OP-K Range of Motion Start: 02/20/21 08:21 Freq: Status: Active Protocol: Document 02/21/21 09:47 [facility] (Rec: 02/21/21 14:27 [facility] [id number]) Cervical Spine Range of Motion Cervical Spine Active Testing Position Sitting Flexion 45 Extension 12 Rotation Left 39 Lateral Flexion Left 10 Lateral Flexion Right 35 ROM Limitations Soft Tissue Tightness,Pain Lumbar Spine Range of Motion Lumbar Spine Active ROM Limitations Soft Tissue Tightness,Pain Comments moderate decrease in ROM all motions except flexion Shoulder Goniometric Range of Motion Shoulder justin Shoulder ROM WFL Yes Comments neck painful with movement Elbow/Forearm Range of Motion Elbow/Forearm justin Elbow/Forearm ROM WFL Yes PT-OP-M Strength Start: 02/20/21 08:21 Freq: Status: Active Protocol: Document 02/21/21 09:47 [facility] (Rec: 02/21/21 14:27 [facility] [id number]) Cervical Spine Strength Cervical Spine Manual Muscle Testing Comments not tested due to recent surgery Trunk Strength Trunk Manual Muscle Testing Comments not tested due to recent surgery Shoulder Strength Shoulder Manual Muscle Testing justin Comments no testing due to recent surgery Hand Slab Lifting Engineer/Pinch Strength Hand Dominance Hand Dominance Right Hand Strength Right Slab Lifting Engineer (lbs) 35 Left Slab Lifting Engineer (lbs) 40 Hip Strength Hip Manual Muscle Testing justin Comments no MMT due to recent surgery, no straining PT-OP-Q Treatments Start: 02/20/21 08:21 Freq: Status: Active Protocol: Document 03/30/21 09:48 [facility] (Rec: 03/30/21 10:33 [facility] [id number]) Cardio Equipment Recumbent Stepper (Sci-Fit) Duration (Minutes) 10 Resistance 1.5 Other cued upright posture, 50 RPM Gym Equipment Shuttle Recovery Bilateral Squats Resistance 50 Shuttle Recovery Platform Stable Reps/Time 10x Therapeutic Exercises Supine Exercises pelvic tilt Reps/Minutes 5x5 pec major stretch Reps/Minutes 2x30 posture press Reps/Minutes 5x10 Sitting Exercises chin tuck Reps/Minutes 3x5 Standing Exercises row, shoulder extension Equipment Used L1 TB Reps/Minutes 10x wall posture Standing Exercise Name wall roll up Manual Therapy Treatment Soft Tissue Mobilization lumbar paraspinals Body Location justin Mobilization Type Myofascial Release,Strumming Intensity/Depth Moderate Body Position Sidelying Comments with manual facilitation into lumbar flexion 1 Body Location c/s, [place], [place] Mobilization Type Myofascial Release,Strumming, Sustained Pressure Intensity/Depth Moderate Body Position Hooklying Manual Traction cervical spine Body Position Hooklying Reps/Duration 5 min Lumbar Reps/Duration 5 min Self-Care/Home Management Treatment Education Patient Education Body Mechanics,Home Exercise Program,Posture PT-OP-R Modalities Start: 02/20/21 08:21 Freq: Status: Active Protocol: Document 03/30/21 09:48 [facility] (Rec: 03/30/21 15:36 SAK [id number]) Hot Pack/Cold Pack Treatment Hot Pack Location cervical spine, lumbar spine Patient Position Hooklying Treatment Duration (minutes) 15 Patient Tolerance Good PT-OP-T Assessment and Plan Start: 02/20/21 08:21 Freq: Status: Active Protocol: Document 03/30/21 09:48 [facility] (Rec: 03/30/21 10:33 [facility]AK [id number]) Physical Therapy Assessment Goals Four Impairment postural dysfunction Short Term Goal (STG) Patient will demonstrate good understanding of neutral postural alignment and be independent with HEP for postural correction and stabilization 03/03/21: progressing, pt requires cuing for alignment and mirror for self feedback, introduced dowel at back during assimulation sweeping/ vacuum. STG Duration 04/10/21 [employer] Super[employer] Goal (LTG) Patient will be able to self- correct postural alignment without physical or verbal cues for improved spinal functioning and activity tolerance. LTG Duration 05/22/21 Three Impairment bilateral LE pain as high as 7 /10 interrupting sleep and mobility [facility] Goal (LTG) Patient able to return to all usual activities including walking, and be able to sleep without interruption due to pain in LE's LTG Duration 05/22/21 Two Impairment Pain neck and UE's right greater than left as high as 6 /10 [employer] Super[employer] Goal (LTG) Patient will be able to do all usual activities with pain no greater than 2/10 LTG Duration 05/22/21 One Impairment neck and shoulder disability index score 40% [employer]ion[employer] Supervisor Goal (LTG) Decrease neck and shoulder disability index score to no greater than 15% as measure of improved neck and shoulder function. LTG Duration 05/22/21 Assessment Summary Assessment Patient able to do roll-up segmental wall posture more effectively today, able to tolerate shuttle leg press. Reported decreased pain with manual lumbar traction and cervical traction. Physical Therapy Plan Frequency and Duration Frequency of Treatment 2x/Week Duration of Treatment 12 weeks Plan of Care Start Date 02/21/21 Plan of Care End Date 05/22/21 Next Visit Focus/Plan Next Note Type Treatment Note Next Visit Plan Use strap for manual lumbar traction. Continue progressive ther ex, postural correction strengthening and stabilization. Manual therapy and modalities as indicated. Continue to encourage aquatic exercise.
--- NOTE | 2021-04-01 11:15 | PT.OTN ---
Current Diagnoses Pain in right hip (04/01/21) Pain in left hip (04/01/21) Cervicalgia (04/01/21) Abnormal posture (04/01/21) Weakness (04/01/21) Physical Therapy Treatment Note PT-OP-A Visit Information Start: 02/20/21 08:21 Freq: Status: Active Protocol: Document 04/01/21 10:31 MA (Rec: 04/01/21 11:15 MA [id number]) Out-Patient Physical Therapy Visit Information Visit Information Visit Type Treatment Note Visit Start Time 10:28 Visit Stop Time 11:25 Total Visit Minutes 57 Visit Number 9 Number of ELECTRICITY TRADING ANALYST Visits 1 PT-OP-B Current Condition Start: 02/20/21 08:21 Freq: Status: Active Protocol: Document 03/30/21 09:48 SAK (Rec: 03/30/21 10:33 SAK [id number]) Current Condition History of Current Condition Onset Date 01/06/21 Current Complaints persistent pain neck, right UE pain, bilateral LE pain, unpredictable. History of Current Condition 01/06/21: cervical fusion C567 anterior approach. Reports x- ray at follow-up 01/24/21 looked good. Sees doctor again next week 03/02/21. Since surgery started off feeling better, now reports some good days, some bad days with pain, still taking some pain pills (a couple days per week.) Pain is right sided more than left, sometimes radiating into right UE, right shoulder blade. Symptoms similar to before surgery but not as bad. Has been using ice, states was told by physician to only use ice, not heat at first after surgery. Has been doing shoulder shrugs, neck turning exercises, looking up and down. Denies N/T. Also seeing a doctor due to bilateral leg pain right greater than left, keeping her up at night. More pain when first stands up from sitting. Getting injections in knees tomorrow. Trying to walk about 1/2 hour per day abut severity of pain limits her mobiity. Prior Treatments and Tests No recent x-ray or MRI. Has had injections bilateral LE's, last 1 1/2 years. Also history of neck injections. Future Testing and Treatments Planned knee injections tomorrow. Follow-up with surgeon 03/02/21 PT-OP-C Subjective Start: 02/20/21 08:21 Freq: Status: Active Protocol: Document 04/01/21 10:31 MA (Rec: 04/01/21 11:15 MA [id number]) OP-PT Subjective Patient Comments Patient Comments Pt's L shd and hip have been bothering her since last night . She was guy to PT-OP-F Manual Assessment Start: 02/20/21 08:21 Freq: Status: Active Protocol: Document 02/21/21 09:47 SAK (Rec: 02/21/21 14:27 SAK [id number]) Manual Assessments Soft Tissue Assessment Soft Tissue Mobility Assessment increased soft tissue tightness bilateral c/s and upper traps right greater than left, right periscapular sregion PT-OP-G Mobility & Gait Start: 02/20/21 08:21 Freq: Status: Active Protocol: Document 02/21/21 09:47 SAK (Rec: 02/21/21 14:27 SAK [id number]) OP Mobility Evaluation Bed Mobility Rolling independent with log roll Supine to and from Sit independent with log roll PT-OP-H Neuro Start: 02/20/21 08:21 Freq: Status: Active Protocol: Document 02/21/21 09:47 SAK (Rec: 02/21/21 14:27 [facility] [id number]) Sensation Evaluation Gross Sensation Gross Sensation WNL PT-OP-J Posture/Palpation/Skin Start: 02/20/21 08:21 Freq: Status: Active Protocol: Document 02/21/21 09:47 SAK (Rec: 02/21/21 14:27 [facility] [id number]) Posture Evaluation Position Standing Head/C-Spine Posture Forward Head T-Spine Posture Increased Kyphosis L-Spine Posture Increased Lordosis Shoulder Posture (L) Rounded,(R) Rounded Shoulder Subluxation Position (L) Anterior,(R) Anterior Scapula Posture (L) Protracted,(R) Protracted Hip Posture (L) Externally Rotated,(R) Externally Rotated Foot Arch (L) Low Arch,(R) Low Arch PT-OP-K Range of Motion Start: 02/20/21 08:21 Freq: Status: Active Protocol: Document 02/21/21 09:47 SAK (Rec: 02/21/21 14:27 SAK [id number]) Cervical Spine Range of Motion Cervical Spine Active Testing Position Sitting Flexion 45 Extension 12 Rotation Left 39 Lateral Flexion Left 10 Lateral Flexion Right 35 ROM Limitations Soft Tissue Tightness,Pain Lumbar Spine Range of Motion Lumbar Spine Active ROM Limitations Soft Tissue Tightness,Pain Comments moderate decrease in ROM all motions except flexion Shoulder Goniometric Range of Motion Shoulder justin Shoulder ROM WFL Yes Comments neck painful with movement Elbow/Forearm Range of Motion Elbow/Forearm justin Elbow/Forearm ROM WFL Yes PT-OP-M Strength Start: 02/20/21 08:21 Freq: Status: Active Protocol: Document 02/21/21 09:47 SAK (Rec: 02/21/21 14:27 SAK [id number]) Cervical Spine Strength Cervical Spine Manual Muscle Testing Comments not tested due to recent surgery Trunk Strength Trunk Manual Muscle Testing Comments not tested due to recent surgery Shoulder Strength Shoulder Manual Muscle Testing justin Comments no testing due to recent surgery Hand Human Performance Consultant/Pinch Strength Hand Dominance Hand Dominance Right Hand Strength Right Human Performance Consultant (lbs) 35 Left Human Performance Consultant (lbs) 40 Hip Strength Hip Manual Muscle Testing justin Comments no MMT due to recent surgery, no straining PT-OP-Q Treatments Start: 02/20/21 08:21 Freq: Status: Active Protocol: Document 04/01/21 10:31 MA (Rec: 04/01/21 11:15 MA [id number]) Cardio Equipment Recumbent Stepper (Sci-Fit) Duration (Minutes) 10 Resistance 1.5 Other cued upright posture, 50 RPM Therapeutic Exercises Supine Exercises pelvic tilt Reps/Minutes 10x5 pec major stretch Reps/Minutes 2x30 Sitting Exercises chin tuck Reps/Minutes 3x5 Manual Therapy Treatment Soft Tissue Mobilization glutes Body Location justin glute med & max Mobilization Type Sustained Pressure,Trigger Point Release Intensity/Depth Moderate Body Position Sidelying lumbar paraspinals Body Location justin Mobilization Type Myofascial Release,Strumming Intensity/Depth Moderate Body Position Sidelying Comments with manual facilitation into lumbar flexion PT-OP-R Modalities Start: 02/20/21 08:21 Freq: Status: Active Protocol: Document 04/01/21 10:31 MA (Rec: 04/01/21 11:15 MA [id number]) Hot Pack/Cold Pack Treatment Hot Pack Location cervical spine, lumbar spine Patient Position Hooklying Treatment Duration (minutes) 15 Patient Tolerance Good PT-OP-T Assessment and Plan Start: 02/20/21 08:21 Freq: Status: Active Protocol: Document 04/01/21 10:31 MA (Rec: 04/01/21 11:15 MA [id number]) Physical Therapy Assessment Goals Four Impairment postural dysfunction Short Term Goal (STG) Patient will demonstrate good understanding of neutral postural alignment and be independent with HEP for postural correction and stabilization 03/03/21: progressing, pt requires cuing for alignment and mirror for self feedback, introduced dowel at back during assimulation sweeping/ vacuum. STG Duration 04/10/21 Liturgical Music Director Goal (LTG) Patient will be able to self- correct postural alignment without physical or verbal cues for improved spinal functioning and activity tolerance. LTG Duration 05/22/21 Three Impairment bilateral LE pain as high as 7 /10 interrupting sleep and mobility Nursing Home Goal (LTG) Patient able to return to all usual activities including walking, and be able to sleep without interruption due to pain in LE's LTG Duration 05/22/21 Two Impairment Pain neck and UE's right greater than left as high as 6 /10 Nursing Home Goal (LTG) Patient will be able to do all usual activities with pain no greater than 2/10 LTG Duration 05/22/21 One Impairment neck and shoulder disability index score 40% Liturgical Music Director Goal (LTG) Decrease neck and shoulder disability index score to no greater than 15% as measure of improved neck and shoulder function. LTG Duration 05/22/21 Assessment Summary Assessment Pt requires cues for pelvic tilts today for posterior vs anterior tilt. She reports decreased pain after STM to justin paraspinals and glutes. Physical Therapy Plan Frequency and Duration Frequency of Treatment 2x/Week Duration of Treatment 12 weeks Plan of Care Start Date 02/21/21 Plan of Care End Date 05/22/21 Next Visit Focus/Plan Next Note Type Treatment Note Next Visit Plan Use strap for manual lumbar traction. Continue progressive ther ex, postural correction strengthening and stabilization. Manual therapy and modalities as indicated. Continue to encourage aquatic exercise.
--- NOTE | 2021-04-06 12:52 | PT.OTN ---
Current Diagnoses Pain in right hip (04/06/21) Pain in left hip (04/06/21) Cervicalgia (04/06/21) Abnormal posture (04/06/21) Weakness (04/06/21) Physical Therapy Treatment Note PT-OP-A Visit Information Start: 02/20/21 08:21 Freq: Status: Active Protocol: Document 04/06/21 12:03 MA (Rec: 04/06/21 12:51 MA [id number]) Out-Patient Physical Therapy Visit Information Visit Information Visit Type Treatment Note Visit Start Time 12:00 Visit Stop Time 12:55 Total Visit Minutes 55 Visit Number 10 Number of PROCESS CONTROLLER Visits 2 PT-OP-B Current Condition Start: 02/20/21 08:21 Freq: Status: Active Protocol: Document 03/30/21 09:48 SAK (Rec: 03/30/21 10:33 SAK [id number]) Current Condition History of Current Condition Onset Date 01/06/21 Current Complaints persistent pain neck, right UE pain, bilateral LE pain, unpredictable. History of Current Condition 01/06/21: cervical fusion C567 anterior approach. Reports x- ray at follow-up 01/24/21 looked good. Sees doctor again next week 03/02/21. Since surgery started off feeling better, now reports some good days, some bad days with pain, still taking some pain pills (a couple days per week.) Pain is right sided more than left, sometimes radiating into right UE, right shoulder blade. Symptoms similar to before surgery but not as bad. Has been using ice, states was told by physician to only use ice, not heat at first after surgery. Has been doing shoulder shrugs, neck turning exercises, looking up and down. Denies N/T. Also seeing a doctor due to bilateral leg pain right greater than left, keeping her up at night. More pain when first stands up from sitting. Getting injections in knees tomorrow. Trying to walk about 1/2 hour per day abut severity of pain limits her mobiity. Prior Treatments and Tests No recent x-ray or MRI. Has had injections bilateral LE's, last 1 1/2 years. Also history of neck injections. Future Testing and Treatments Planned knee injections tomorrow. Follow-up with surgeon 03/02/21 PT-OP-C Subjective Start: 06/06/21 08:21 Freq: Status: Active Protocol: Document 04/06/21 12:03 MA (Rec: 04/06/21 12:51 MA [id number]) OP-PT Subjective Patient Comments Patient Comments Pt's L dorsal foot started bothering her yesterday and she is wearing a compression sock today though it doesn't seem to do much. She can't recall any reason her foot would have started hurting but states my body is just weird PT-OP-F Manual Assessment Start: 02/20/21 08:21 Freq: Status: Active Protocol: Document 02/21/21 09:47 SAK (Rec: 02/21/21 14:27 [facility] [id number]) Manual Assessments Soft Tissue Assessment Soft Tissue Mobility Assessment increased soft tissue tightness bilateral c/s and upper traps right greater than left, right periscapular sregion PT-OP-G Mobility & Gait Start: 02/20/21 08:21 Freq: Status: Active Protocol: Document 02/21/21 09:47 SAK (Rec: 02/21/21 14:27 [facility] [id number]) OP Mobility Evaluation Bed Mobility Rolling independent with log roll Supine to and from Sit independent with log roll PT-OP-H Neuro Start: 02/20/21 08:21 Freq: Status: Active Protocol: Document 02/21/21 09:47 SAK (Rec: 02/21/21 14:27 [facility] [id number]) Sensation Evaluation Gross Sensation Gross Sensation WNL PT-OP-J Posture/Palpation/Skin Start: 02/20/21 08:21 Freq: Status: Active Protocol: Document 02/21/21 09:47 SAK (Rec: 02/21/21 14:27 [facility] [id number]) Posture Evaluation Position Standing Head/C-Spine Posture Forward Head T-Spine Posture Increased Kyphosis L-Spine Posture Increased Lordosis Shoulder Posture (L) Rounded,(R) Rounded Shoulder Subluxation Position (L) Anterior,(R) Anterior Scapula Posture (L) Protracted,(R) Protracted Hip Posture (L) Externally Rotated,(R) Externally Rotated Foot Arch (L) Low Arch,(R) Low Arch PT-OP-K Range of Motion Start: 02/20/21 08:21 Freq: Status: Active Protocol: Document 02/21/21 09:47 SAK (Rec: 02/21/21 14:27 [facility] [id number]) Cervical Spine Range of Motion Cervical Spine Active Testing Position Sitting Flexion 45 Extension 12 Rotation Left 39 Lateral Flexion Left 10 Lateral Flexion Right 35 ROM Limitations Soft Tissue Tightness,Pain Lumbar Spine Range of Motion Lumbar Spine Active ROM Limitations Soft Tissue Tightness,Pain Comments moderate decrease in ROM all motions except flexion Shoulder Goniometric Range of Motion Shoulder justin Shoulder ROM WFL Yes Comments neck painful with movement Elbow/Forearm Range of Motion Elbow/Forearm justin Elbow/Forearm ROM WFL Yes PT-OP-M Strength Start: 02/20/21 08:21 Freq: Status: Active Protocol: Document 02/21/21 09:47 SAK (Rec: 02/21/21 14:27 [facility] [id number]) Cervical Spine Strength Cervical Spine Manual Muscle Testing Comments not tested due to recent surgery Trunk Strength Trunk Manual Muscle Testing Comments not tested due to recent surgery Shoulder Strength Shoulder Manual Muscle Testing justin Comments no testing due to recent surgery Hand Communications Project Manager/Pinch Strength Hand Dominance Hand Dominance Right Hand Strength Right Communications Project Manager (lbs) 35 Left Communications Project Manager (lbs) 40 Hip Strength Hip Manual Muscle Testing justin Comments no MMT due to recent surgery, no straining PT-OP-Q Treatments Start: 02/20/21 08:21 Freq: Status: Active Protocol: Document 04/06/21 12:03 MA (Rec: 04/06/21 12:51 MA [id number]) Cardio Equipment Recumbent Stepper (Sci-Fit) Duration (Minutes) 6 Resistance 2.0 Seat Position 9 Other cued upright posture, 50 RPM Gym Equipment Therapeutic Ball 55cm Exercise Details hip cirlces and pelvic tilts Ball Size/Color red 55cm Body Position Sitting Reps/Duration 2' Therapeutic Exercises Supine Exercises pelvic tilt Reps/Minutes 10x5 pec major stretch Reps/Minutes 2x30 Sitting Exercises chin tuck Reps/Minutes 3x5 Comments cues to avoid cervical flexion Standing Exercises posterior pelvic tilt Standing Exercise Name spinal flexion in standing Reps/Minutes 3 min Manual Therapy Treatment Soft Tissue Mobilization glutes Body Location justin glute med & max Mobilization Type Sustained Pressure,Trigger Point Release Intensity/Depth Moderate Body Position Sidelying PT-OP-R Modalities Start: 02/20/21 08:21 Freq: Status: Active Protocol: Document 04/06/21 12:03 MA (Rec: 04/06/21 12:51 MA [id number]) Hot Pack/Cold Pack Treatment Hot Pack Location cervical spine, lumbar spine Patient Position Hooklying Treatment Duration (minutes) 15 Patient Tolerance Good PT-OP-T Assessment and Plan Start: 02/20/21 08:21 Freq: Status: Active Protocol: Document 04/06/21 12:03 MA (Rec: 04/06/21 12:51 MA [id number]) Physical Therapy Assessment Goals Four Impairment postural dysfunction Short Term Goal (STG) Patient will demonstrate good understanding of neutral postural alignment and be independent with HEP for postural correction and stabilization 03/03/21: progressing, pt requires cuing for alignment and mirror for self feedback, introduced dowel at back during assimulation sweeping/ vacuum. STG Duration 04/10/21 Nursing Home Goal (LTG) Patient will be able to self- correct postural alignment without physical or verbal cues for improved spinal functioning and activity tolerance. LTG Duration 05/22/21 Three Impairment bilateral LE pain as high as 7 /10 interrupting sleep and mobility Program And Research Coordinator Goal (LTG) Patient able to return to all usual activities including walking, and be able to sleep without interruption due to pain in LE's LTG Duration 05/22/21 Two Impairment Pain neck and UE's right greater than left as high as 6 /10 Nursing Home Goal (LTG) Patient will be able to do all usual activities with pain no greater than 2/10 LTG Duration 05/22/21 One Impairment neck and shoulder disability index score 40% Nursing Home Goal (LTG) Decrease neck and shoulder disability index score to no greater than 15% as measure of improved neck and shoulder function. LTG Duration 05/22/21 Assessment Summary Assessment Pt continues to need heavy verbal and manual cues for pelvic tilts. Attempted in supine, sitting on theraball, and standing today. She had minor L hip pain when performing on therapy ball. Pt was able to move lumbar spine and hips better during hip circles seated on therapy ball than with pelvic tilts. She arrived with pain on L lateral dorsal foot and has minor redness that disappears once compression sock is removed. She has no signs of swelling on foot and was able to tolerate most exercises. Pt did 6 min vs normal 10 min on recumbant stepper due to pain. recommended pt try rest and ice for 48 hours to see if pain improves. Physical Therapy Plan Frequency and Duration Frequency of Treatment 2x/Week Duration of Treatment 12 weeks Plan of Care Start Date 02/21/21 Plan of Care End Date 05/22/21 Next Visit Focus/Plan Next Note Type Treatment Note Next Visit Plan Assess if L foot is still bothering her before using recum stepper. Use strap for manual lumbar traction. Continue progressive ther ex, postural correction strengthening and stabilization. Manual therapy and modalities as indicated. Continue to encourage aquatic exercise.
--- NOTE | 2021-04-11 11:49 | PT.OTN ---
Current Diagnoses Pain in right hip (04/11/21) Pain in left hip (04/11/21) Cervicalgia (04/11/21) Abnormal posture (04/11/21) Weakness (04/11/21) Physical Therapy Treatment Note PT-OP-A Visit Information Start: 02/20/21 08:21 Freq: Status: Active Protocol: Document 04/11/21 10:33 SAK (Rec: 04/11/21 11:44 SAK [id number]) Out-Patient Physical Therapy Visit Information Visit Information Visit Type Treatment Note Visit Start Time 10:35 Total Visit Minutes 55 Visit Number 11 Number of TOW MOTOR OPERATOR Visits 0 PT-OP-B Current Condition Start: 02/20/21 08:21 Freq: Status: Active Protocol: Document 03/30/21 09:48 SAK (Rec: 03/30/21 10:33 SAK [id number]) Current Condition History of Current Condition Onset Date 01/06/21 Current Complaints persistent pain neck, right UE pain, bilateral LE pain, unpredictable. History of Current Condition 01/06/21: cervical fusion C567 anterior approach. Reports x- ray at follow-up 01/24/21 looked good. Sees doctor again next week 03/02/21. Since surgery started off feeling better, now reports some good days, some bad days with pain, still taking some pain pills (a couple days per week.) Pain is right sided more than left, sometimes radiating into right UE, right shoulder blade. Symptoms similar to before surgery but not as bad. Has been using ice, states was told by physician to only use ice, not heat at first after surgery. Has been doing shoulder shrugs, neck turning exercises, looking up and down. Denies N/T. Also seeing a doctor due to bilateral leg pain right greater than left, keeping her up at night. More pain when first stands up from sitting. Getting injections in knees tomorrow. Trying to walk about 1/2 hour per day abut severity of pain limits her mobiity. Prior Treatments and Tests No recent x-ray or MRI. Has had injections bilateral LE's, last 1 1/2 years. Also history of neck injections. Future Testing and Treatments Planned knee injections tomorrow. Follow-up with surgeon 03/02/21 PT-OP-C Subjective Start: 02/20/21 08:21 Freq: Status: Active Protocol: Document 04/11/21 10:33 [facility] (Rec: 04/11/21 11:44 [facility] [id number]) OP-PT Subjective Patient Comments Patient Comments Right hip, down her right leg hurting most today. Supposed to get MRI soon. Dr. Sharpe recommending she get injections again in her low back again; had 2 years ago. Pain 3-4/10 mostly leg, some low back. Has been walking up to 45 minutes at a time, not doing HEP as much; frustrated because hurting so much. Hasn' t gotten in the pool yet to do exewrcises. Feels neck pain better. PT-OP-F Manual Assessment Start: 02/20/21 08:21 Freq: Status: Active Protocol: Document 02/21/21 09:47 [facility] (Rec: 02/21/21 14:27 [facility] [id number]) Manual Assessments Soft Tissue Assessment Soft Tissue Mobility Assessment increased soft tissue tightness bilateral c/s and upper traps right greater than left, right periscapular sregion PT-OP-G Mobility & Gait Start: 02/20/21 08:21 Freq: Status: Active Protocol: Document 02/21/21 09:47 [facility] (Rec: 02/21/21 14:27 [facility] [id number]) OP Mobility Evaluation Bed Mobility Rolling independent with log roll Supine to and from Sit independent with log roll PT-OP-H Neuro Start: 02/20/21 08:21 Freq: Status: Active Protocol: Document 02/21/21 09:47 [facility] (Rec: 02/21/21 14:27 [facility] [id number]) Sensation Evaluation Gross Sensation Gross Sensation WNL PT-OP-J Posture/Palpation/Skin Start: 02/20/21 08:21 Freq: Status: Active Protocol: Document 02/21/21 09:47 [facility] (Rec: 02/21/21 14:27 [facility] [id number]) Posture Evaluation Position Standing Head/C-Spine Posture Forward Head T-Spine Posture Increased Kyphosis L-Spine Posture Increased Lordosis Shoulder Posture (L) Rounded,(R) Rounded Shoulder Subluxation Position (L) Anterior,(R) Anterior Scapula Posture (L) Protracted,(R) Protracted Hip Posture (L) Externally Rotated,(R) Externally Rotated Foot Arch (L) Low Arch,(R) Low Arch PT-OP-K Range of Motion Start: 02/20/21 08:21 Freq: Status: Active Protocol: Document 02/21/21 09:47 [facility] (Rec: 02/21/21 14:27 [facility] [id number]) Cervical Spine Range of Motion Cervical Spine Active Testing Position Sitting Flexion 45 Extension 12 Rotation Left 39 Lateral Flexion Left 10 Lateral Flexion Right 35 ROM Limitations Soft Tissue Tightness,Pain Lumbar Spine Range of Motion Lumbar Spine Active ROM Limitations Soft Tissue Tightness,Pain Comments moderate decrease in ROM all motions except flexion Shoulder Goniometric Range of Motion Shoulder justin Shoulder ROM WFL Yes Comments neck painful with movement Elbow/Forearm Range of Motion Elbow/Forearm justin Elbow/Forearm ROM WFL Yes PT-OP-M Strength Start: 02/20/21 08:21 Freq: Status: Active Protocol: Document 02/21/21 09:47 [facility] (Rec: 02/21/21 14:27 [facility] [id number]) Cervical Spine Strength Cervical Spine Manual Muscle Testing Comments not tested due to recent surgery Trunk Strength Trunk Manual Muscle Testing Comments not tested due to recent surgery Shoulder Strength Shoulder Manual Muscle Testing justin Comments no testing due to recent surgery Hand Helicopter Officer/Pinch Strength Hand Dominance Hand Dominance Right Hand Strength Right Helicopter Officer (lbs) 35 Left Helicopter Officer (lbs) 40 Hip Strength Hip Manual Muscle Testing justin Comments no MMT due to recent surgery, no straining PT-OP-Q Treatments Start: 02/20/21 08:21 Freq: Status: Active Protocol: Document 04/11/21 10:33 [facility] (Rec: 04/11/21 11:44 [facility] [id number]) Cardio Equipment Recumbent Elliptical (Biodex) Duration (Minutes) 10 Resistance 3 Seat Position 8 Gym Equipment Therapeutic Ball 55cm Exercise Details hip cirlces and pelvic tilts Ball Size/Color green 65 cm Body Position Sitting Reps/Duration 2' Comments mod cues for pelvic tilt Therapeutic Exercises Prone Exercises prone press up Reps/Minutes 2x60 Sidelying Exercises clamshell Reps/Minutes 8x Comments cues for alignment, core activation open book Reps/Minutes 5x Comments gentle, pain-free ROM Sitting Exercises chin tuck Reps/Minutes 3x5 Comments cues to avoid cervical flexion Standing Exercises row, shoulder extension Equipment Used L2 TB Reps/Minutes 10x Manual Therapy Treatment Soft Tissue Mobilization glutes Body Location justin glute med & max Mobilization Type Sustained Pressure,Trigger Point Release Intensity/Depth Moderate Body Position Sidelying lumbar paraspinals Body Location justin Mobilization Type Myofascial Release,Strumming Intensity/Depth Moderate Body Position Sidelying Comments with manual facilitation into lumbar flexion 1 Body Location right IT band, lateral quad Mobilization Type Myofascial Release,Strumming, Sustained Pressure Intensity/Depth Moderate Body Position Sidelying PT-OP-R Modalities Start: 02/20/21 08:21 Freq: Status: Active Protocol: Document 04/11/21 10:33 [facility] (Rec: 04/11/21 11:44 [facility] [id number]) Hot Pack/Cold Pack Treatment Hot Pack Location cervical spine, lumbar spine Patient Position Hooklying Treatment Duration (minutes) 15 Patient Tolerance Good PT-OP-T Assessment and Plan Start: 02/20/21 08:21 Freq: Status: Active Protocol: Document 04/11/21 10:33 [facility] (Rec: 04/11/21 11:44 [facility] [id number]) Physical Therapy Assessment Goals Four Impairment postural dysfunction Short Term Goal (STG) Patient will demonstrate good understanding of neutral postural alignment and be independent with HEP for postural correction and stabilization 03/03/21: progressing, pt requires cuing for alignment and mirror for self feedback, introduced dowel at back during assimulation sweeping/ vacuum. STG Duration 04/10/21 Half-Way Goal (LTG) Patient will be able to self- correct postural alignment without physical or verbal cues for improved spinal functioning and activity tolerance. LTG Duration 05/22/21 Three Impairment bilateral LE pain as high as 7 /10 interrupting sleep and mobility Half-Way Goal (LTG) Patient able to return to all usual activities including walking, and be able to sleep without interruption due to pain in LE's LTG Duration 05/22/21 Two Impairment Pain neck and UE's right greater than left as high as 6 /10 Half-Way Goal (LTG) Patient will be able to do all usual activities with pain no greater than 2/10 LTG Duration 05/22/21 One Impairment neck and shoulder disability index score 40% Care Management Associate Goal (LTG) Decrease neck and shoulder disability index score to no greater than 15% as measure of improved neck and shoulder function. LTG Duration 05/22/21 Assessment Summary Assessment Able to progress to L2 TB with row and shoulder extension. Moderate verbal and manual cues for postural alignment and core stabilization with all exercises. Patient still having difficulty with pelvic tilt. Good tolerance for prone press-up today. Tender right paraspinals, buttock, and lateral quad right. Physical Therapy Plan Frequency and Duration Frequency of Treatment 2x/Week Duration of Treatment 12 weeks Plan of Care Start Date 02/21/21 Plan of Care End Date 05/22/21 Next Visit Focus/Plan Next Note Type Treatment Note Next Visit Plan Manual traction with strap, continue manual techniques to improve soft tissue mobility and decrease pain. Progressive ther ex.
--- NOTE | 2021-04-20 16:09 | PT.OTN ---
Current Diagnoses Pain in right hip (04/20/21) Pain in left hip (04/20/21) Cervicalgia (04/20/21) Abnormal posture (04/20/21) Weakness (04/20/21) Physical Therapy Treatment Note PT-OP-A Visit Information Start: 02/20/21 08:21 Freq: Status: Active Protocol: Document 04/20/21 10:29 SAK (Rec: 04/20/21 11:20 SAK [id number]) Out-Patient Physical Therapy Visit Information Visit Information Visit Type Treatment Note Visit Start Time 10:35 Visit Stop Time 11:30 Total Visit Minutes 55 Visit Number 12 Number of TRANSCRIPTION MANAGER Visits 0 PT-OP-B Current Condition Start: 02/20/21 08:21 Freq: Status: Active Protocol: Document 03/30/21 09:48 SAK (Rec: 03/30/21 10:33 SAK [id number]) Current Condition History of Current Condition Onset Date 01/06/21 Current Complaints persistent pain neck, right UE pain, bilateral LE pain, unpredictable. History of Current Condition 01/06/21: cervical fusion C567 anterior approach. Reports x- ray at follow-up 01/24/21 looked good. Sees doctor again next week 03/02/21. Since surgery started off feeling better, now reports some good days, some bad days with pain, still taking some pain pills (a couple days per week.) Pain is right sided more than left, sometimes radiating into right UE, right shoulder blade. Symptoms similar to before surgery but not as bad. Has been using ice, states was told by physician to only use ice, not heat at first after surgery. Has been doing shoulder shrugs, neck turning exercises, looking up and down. Denies N/T. Also seeing a doctor due to bilateral leg pain right greater than left, keeping her up at night. More pain when first stands up from sitting. Getting injections in knees tomorrow. Trying to walk about 1/2 hour per day abut severity of pain limits her mobiity. Prior Treatments and Tests No recent x-ray or MRI. Has had injections bilateral LE's, last 1 1/2 years. Also history of neck injections. Future Testing and Treatments Planned knee injections tomorrow. Follow-up with surgeon 03/02/21 PT-OP-C Subjective Start: 06/06/21 08:21 Freq: Status: Active Protocol: Document 04/20/21 10:29 SAK (Rec: 04/20/21 11:20 [facility] [id number]) OP-PT Subjective Patient Comments Patient Comments Having more difficulty with foot pain, going to do some shoe shopping. Decreased pain since starting PT especially in neck. Right LE pain and LBP persists though at lower level. Anticipating getting injection soon. PT-OP-F Manual Assessment Start: 02/20/21 08:21 Freq: Status: Active Protocol: Document 02/21/21 09:47 [facility] (Rec: 02/21/21 14:27 [facility] [id number]) Manual Assessments Soft Tissue Assessment Soft Tissue Mobility Assessment increased soft tissue tightness bilateral c/s and upper traps right greater than left, right periscapular sregion PT-OP-G Mobility & Gait Start: 02/20/21 08:21 Freq: Status: Active Protocol: Document 02/21/21 09:47 [facility] (Rec: 02/21/21 14:27 [facility] [id number]) OP Mobility Evaluation Bed Mobility Rolling independent with log roll Supine to and from Sit independent with log roll PT-OP-H Neuro Start: 02/20/21 08:21 Freq: Status: Active Protocol: Document 02/21/21 09:47 [facility] (Rec: 02/21/21 14:27 [facility] [id number]) Sensation Evaluation Gross Sensation Gross Sensation WNL PT-OP-J Posture/Palpation/Skin Start: 02/20/21 08:21 Freq: Status: Active Protocol: Document 02/21/21 09:47 [facility] (Rec: 02/21/21 14:27 [facility] [id number]) Posture Evaluation Position Standing Head/C-Spine Posture Forward Head T-Spine Posture Increased Kyphosis L-Spine Posture Increased Lordosis Shoulder Posture (L) Rounded,(R) Rounded Shoulder Subluxation Position (L) Anterior,(R) Anterior Scapula Posture (L) Protracted,(R) Protracted Hip Posture (L) Externally Rotated,(R) Externally Rotated Foot Arch (L) Low Arch,(R) Low Arch PT-OP-K Range of Motion Start: 02/20/21 08:21 Freq: Status: Active Protocol: Document 02/21/21 09:47 [facility] (Rec: 02/21/21 14:27 [facility] [id number]) Cervical Spine Range of Motion Cervical Spine Active Testing Position Sitting Flexion 45 Extension 12 Rotation Left 39 Lateral Flexion Left 10 Lateral Flexion Right 35 ROM Limitations Soft Tissue Tightness,Pain Lumbar Spine Range of Motion Lumbar Spine Active ROM Limitations Soft Tissue Tightness,Pain Comments moderate decrease in ROM all motions except flexion Shoulder Goniometric Range of Motion Shoulder justin Shoulder ROM WFL Yes Comments neck painful with movement Elbow/Forearm Range of Motion Elbow/Forearm justin Elbow/Forearm ROM WFL Yes PT-OP-M Strength Start: 02/20/21 08:21 Freq: Status: Active Protocol: Document 02/21/21 09:47 [facility] (Rec: 02/21/21 14:27 SAK [id number]) Cervical Spine Strength Cervical Spine Manual Muscle Testing Comments not tested due to recent surgery Trunk Strength Trunk Manual Muscle Testing Comments not tested due to recent surgery Shoulder Strength Shoulder Manual Muscle Testing justin Comments no testing due to recent surgery Hand Oil Well Services Dispatcher/Pinch Strength Hand Dominance Hand Dominance Right Hand Strength Right Oil Well Services Dispatcher (lbs) 35 Left Oil Well Services Dispatcher (lbs) 40 Hip Strength Hip Manual Muscle Testing justin Comments no MMT due to recent surgery, no straining PT-OP-Q Treatments Start: 02/20/21 08:21 Freq: Status: Active Protocol: Document 04/20/21 10:29 [facility] (Rec: 04/20/21 11:20 [facility] [id number]) Cardio Equipment Recumbent Stepper (Sci-Fit) Duration (Minutes) 10 Resistance 2.0 Seat Position 9 Other cued upright posture, 50 RPM Therapeutic Exercises Sidelying Exercises clamshell Reps/Minutes 8x Comments cues for alignment, core activation open book Reps/Minutes 5x Comments gentle, pain-free ROM Sitting Exercises posterior pelvic tilt Reps/Minutes 10x Comments verbal and manual cues Manual Therapy Treatment Soft Tissue Mobilization glutes Body Location justin glute med & max Mobilization Type Instrument Assisted,Sustained Pressure,Trigger Point Release Intensity/Depth Moderate Body Position Sidelying Comments massage stick (white lumbar paraspinals Body Location justin Mobilization Type Myofascial Release,Strumming Intensity/Depth Moderate Body Position Sidelying Comments with manual facilitation into lumbar flexion 1 Body Location right IT band, lateral quad Mobilization Type Instrument Assisted,Myofascial Release,Strumming,Sustained Pressure Intensity/Depth Moderate Body Position Sidelying Comments massage stick (white) Manual Traction Lumbar Reps/Duration 5 min Comments reports no change in pain PT-OP-R Modalities Start: 02/20/21 08:21 Freq: Status: Active Protocol: Document 04/20/21 10:29 SAK (Rec: 04/20/21 11:20 SAK [id number]) Hot Pack/Cold Pack Treatment Hot Pack Location cervical spine, lumbar spine Patient Position Hooklying Treatment Duration (minutes) 15 Patient Tolerance Good PT-OP-T Assessment and Plan Start: 02/20/21 08:21 Freq: Status: Active Protocol: Document 04/20/21 10:29 [facility] (Rec: 04/20/21 11:20 [facility] [id number]) Physical Therapy Assessment Goals Four Impairment postural dysfunction Short Term Goal (STG) Patient will demonstrate good understanding of neutral postural alignment and be independent with HEP for postural correction and stabilization 03/03/21: progressing, pt requires cuing for alignment and mirror for self feedback, introduced dowel at back during assimulation sweeping/ vacuum. STG Duration 04/10/21 [facility] Goal (LTG) Patient will be able to self- correct postural alignment without physical or verbal cues for improved spinal functioning and activity tolerance. LTG Duration 05/22/21 Three Impairment bilateral LE pain as high as 7 /10 interrupting sleep and mobility Carbonation Tester Goal (LTG) Patient able to return to all usual activities including walking, and be able to sleep without interruption due to pain in LE's LTG Duration 05/22/21 Two Impairment Pain neck and UE's right greater than left as high as 6 /10 Carbonation Tester Goal (LTG) Patient will be able to do all usual activities with pain no greater than 2/10 LTG Duration 05/22/21 One Impairment neck and shoulder disability index score 40% Carbonation Tester Goal (LTG) Decrease neck and shoulder disability index score to no greater than 15% as measure of improved neck and shoulder function. LTG Duration 05/22/21 Assessment Summary Assessment More time spent on soft tissue mobilization tody throughout buttock, IT band and lumbar paraspinals; palpable trigger points piriformis and IT band, tightness lumbar paraspinals. Reduced with manual techniques. Patient compliant to HEP. Physical Therapy Plan Frequency and Duration Frequency of Treatment 2x/Week Duration of Treatment 12 weeks Plan of Care Start Date 02/21/21 Plan of Care End Date 05/22/21 Next Visit Focus/Plan Next Note Type Treatment Note Next Visit Plan ASsess response to today's treatment with increased manual techniques. Continue manual techniques to improve soft tissue mobility and decrease pain. Progressive ther ex as tolerated including addition of resisted walking with emphasis on core stab.
--- NOTE | 2021-04-26 16:04 | PT.OTN ---
Current Diagnoses Pain in right hip (04/26/21) Pain in left hip (04/26/21) Cervicalgia (04/26/21) Abnormal posture (04/26/21) Weakness (04/26/21) Physical Therapy Treatment Note PT-OP-A Visit Information Start: 02/20/21 08:21 Freq: Status: Active Protocol: Document 04/26/21 10:35 SAK (Rec: 04/26/21 11:15 SAK [id number]) Out-Patient Physical Therapy Visit Information Visit Information Visit Type Treatment Note Visit Start Time 10:33 Visit Stop Time 11:27 Total Visit Minutes 55 Visit Number 12 Number of LOOM STARTER Visits 0 Evaluation Information Evaluation Date 02/21/21 PT-OP-B Current Condition Start: 02/20/21 08:21 Freq: Status: Active Protocol: Document 03/30/21 09:48 SAK (Rec: 03/30/21 10:33 SAK [id number]) Current Condition History of Current Condition Onset Date 01/06/21 Current Complaints persistent pain neck, right UE pain, bilateral LE pain, unpredictable. History of Current Condition 01/06/21: cervical fusion C567 anterior approach. Reports x- ray at follow-up 01/24/21 looked good. Sees doctor again next week 03/02/21. Since surgery started off feeling better, now reports some good days, some bad days with pain, still taking some pain pills (a couple days per week.) Pain is right sided more than left, sometimes radiating into right UE, right shoulder blade. Symptoms similar to before surgery but not as bad. Has been using ice, states was told by physician to only use ice, not heat at first after surgery. Has been doing shoulder shrugs, neck turning exercises, looking up and down. Denies N/T. Also seeing a doctor due to bilateral leg pain right greater than left, keeping her up at night. More pain when first stands up from sitting. Getting injections in knees tomorrow. Trying to walk about 1/2 hour per day abut severity of pain limits her mobiity. Prior Treatments and Tests No recent x-ray or MRI. Has had injections bilateral LE's, last 1 1/2 years. Also history of neck injections. Future Testing and Treatments Planned knee injections tomorrow. Follow-up with surgeon 03/02/21 PT-OP-C Subjective Start: 02/20/21 08:21 Freq: Status: Active Protocol: Document 04/26/21 10:35 [facility] (Rec: 04/26/21 11:15 [facility] [id number]) OP-PT Subjective Patient Comments Patient Comments Pain was on both sides of low back and hips yesterday going down her legs; today mostly left leg. 4/10 pain today. Yesterday was 7/10. Still hasn't had MRI improved. Neck stiff and sore today. Compliant to HEP. Not sure if manual traction was helpful. Ordered a pair of Dansko's, should arrive tomorrow PT-OP-F Manual Assessment Start: 02/20/21 08:21 Freq: Status: Active Protocol: Document 02/21/21 09:47 [facility] (Rec: 02/21/21 14:27 [facility] [id number]) Manual Assessments Soft Tissue Assessment Soft Tissue Mobility Assessment increased soft tissue tightness bilateral c/s and upper traps right greater than left, right periscapular sregion PT-OP-G Mobility & Gait Start: 02/20/21 08:21 Freq: Status: Active Protocol: Document 02/21/21 09:47 [facility] (Rec: 02/21/21 14:27 [facility] [id number]) OP Mobility Evaluation Bed Mobility Rolling independent with log roll Supine to and from Sit independent with log roll PT-OP-H Neuro Start: 02/20/21 08:21 Freq: Status: Active Protocol: Document 02/21/21 09:47 [facility] (Rec: 02/21/21 14:27 [facility] [id number]) Sensation Evaluation Gross Sensation Gross Sensation WNL PT-OP-J Posture/Palpation/Skin Start: 02/20/21 08:21 Freq: Status: Active Protocol: Document 02/21/21 09:47 [facility] (Rec: 02/21/21 14:27 [facility] [id number]) Posture Evaluation Position Standing Head/C-Spine Posture Forward Head T-Spine Posture Increased Kyphosis L-Spine Posture Increased Lordosis Shoulder Posture (L) Rounded,(R) Rounded Shoulder Subluxation Position (L) Anterior,(R) Anterior Scapula Posture (L) Protracted,(R) Protracted Hip Posture (L) Externally Rotated,(R) Externally Rotated Foot Arch (L) Low Arch,(R) Low Arch PT-OP-K Range of Motion Start: 02/20/21 08:21 Freq: Status: Active Protocol: Document 02/21/21 09:47 [facility] (Rec: 02/21/21 14:27 [facility] [id number]) Cervical Spine Range of Motion Cervical Spine Active Testing Position Sitting Flexion 45 Extension 12 Rotation Left 39 Lateral Flexion Left 10 Lateral Flexion Right 35 ROM Limitations Soft Tissue Tightness,Pain Lumbar Spine Range of Motion Lumbar Spine Active ROM Limitations Soft Tissue Tightness,Pain Comments moderate decrease in ROM all motions except flexion Shoulder Goniometric Range of Motion Shoulder justin Shoulder ROM WFL Yes Comments neck painful with movement Elbow/Forearm Range of Motion Elbow/Forearm justin Elbow/Forearm ROM WFL Yes PT-OP-M Strength Start: 02/20/21 08:21 Freq: Status: Active Protocol: Document 02/21/21 09:47 [facility] (Rec: 02/21/21 14:27 [facility] [id number]) Cervical Spine Strength Cervical Spine Manual Muscle Testing Comments not tested due to recent surgery Trunk Strength Trunk Manual Muscle Testing Comments not tested due to recent surgery Shoulder Strength Shoulder Manual Muscle Testing justin Comments no testing due to recent surgery Hand Hair Rooting Machine Operator/Pinch Strength Hand Dominance Hand Dominance Right Hand Strength Right Hair Rooting Machine Operator (lbs) 35 Left Hair Rooting Machine Operator (lbs) 40 Hip Strength Hip Manual Muscle Testing justin Comments no MMT due to recent surgery, no straining PT-OP-Q Treatments Start: 02/20/21 08:21 Freq: Status: Active Protocol: Document 04/26/21 10:35 [facility] (Rec: 04/26/21 11:15 [facility] [id number]) Cardio Equipment Recumbent Stepper (Sci-Fit) Duration (Minutes) 10 Resistance 2.0 Seat Position 9 Other cued upright posture, 50 RPM. 5 min UE/LE, 5 min LE's only Gym Equipment Shuttle Recovery Bilateral Squats Resistance 50 Shuttle Recovery Platform Stable Reps/Time 10x Therapeutic Exercises Sitting Exercises piriformis stretch Reps/Minutes 2x30 figure 4 stretch Reps/Minutes 2x30 Standing Exercises resisted sidestepping Resistance yellow band Reps/Minutes 10 feet row, shoulder extension Equipment Used L2 TB Reps/Minutes 10x Manual Therapy Treatment Soft Tissue Mobilization c/s, UT, LS, rhomboids Mobilization Type Myofascial Release,Strumming, Sustained Pressure PT-OP-R Modalities Start: 02/20/21 08:21 Freq: Status: Active Protocol: Document 04/26/21 10:35 [facility] (Rec: 04/26/21 11:15 [facility] [id number]) Hot Pack/Cold Pack Treatment Hot Pack Location cervical spine, lumbar spine Patient Position Hooklying Treatment Duration (minutes) 15 Patient Tolerance Good PT-OP-T Assessment and Plan Start: 02/20/21 08:21 Freq: Status: Active Protocol: Document 04/26/21 10:35 [facility] (Rec: 04/26/21 11:15 [facility] [id number]) Physical Therapy Assessment Goals Four Impairment postural dysfunction Short Term Goal (STG) Patient will demonstrate good understanding of neutral postural alignment and be independent with HEP for postural correction and stabilization 03/03/21: progressing, pt requires cuing for alignment and mirror for self feedback, introduced dowel at back during assimulation sweeping/ vacuum. STG Duration 04/10/21 Credit Union Teller Goal (LTG) Patient will be able to self- correct postural alignment without physical or verbal cues for improved spinal functioning and activity tolerance. LTG Duration 05/22/21 Three Impairment bilateral LE pain as high as 7 /10 interrupting sleep and mobility Credit Union Teller Goal (LTG) Patient able to return to all usual activities including walking, and be able to sleep without interruption due to pain in LE's LTG Duration 05/22/21 Two Impairment Pain neck and UE's right greater than left as high as 6 /10 Longterm Goal (LTG) Patient will be able to do all usual activities with pain no greater than 2/10 LTG Duration 05/22/21 One Impairment neck and shoulder disability index score 40% Credit Union Teller Goal (LTG) Decrease neck and shoulder disability index score to no greater than 15% as measure of improved neck and shoulder function. LTG Duration 05/22/21 Assessment Summary Assessment more pain and stiffness through cervical and upper thoracic region today, manual soft tissue mobilization performed today. Improved exercise tolerance, cues for core stabilization with all ther ex. Physical Therapy Plan Frequency and Duration Frequency of Treatment 2x/Week Duration of Treatment 12 weeks Plan of Care Start Date 02/21/21 Plan of Care End Date 05/22/21 Next Visit Focus/Plan Next Note Type Treatment Note Next Visit Plan Continue PT per POC to decrease pain and improve tolerance for al usual activities. resisted walking forward and backward in addition to the added sidestepping today as tolerated.
--- NOTE | 2021-05-17 17:03 | PT.OTN ---
Current Diagnoses Pain in right hip (05/17/21) Pain in left hip (05/17/21) Cervicalgia (05/17/21) Abnormal posture (05/17/21) Weakness (05/17/21) Physical Therapy Treatment Note PT-OP-A Visit Information Start: 02/20/21 08:21 Freq: Status: Active Protocol: Document 05/17/21 15:15 [facility] (Rec: 05/17/21 15:46 [facility] [id number]) Out-Patient Physical Therapy Visit Information Visit Information Visit Type Treatment Note Visit Start Time 15:16 Visit Stop Time 16:00 Total Visit Minutes 56 Visit Number 13 Number of REFORMATORY ATTENDANT Visits 0 Evaluation Information Evaluation Date 02/21/21 Precautions Precautions cervical fusion PT-OP-B Current Condition Start: 02/20/21 08:21 Freq: Status: Active Protocol: Document 05/17/21 15:15 [facility]AK (Rec: 05/17/21 15:46 [facility]AK [id number]) Current Condition History of Current Condition History of Current Condition 01/06/21: cervical fusion C567 anterior approach. Reports x- ray at follow-up 01/24/21 looked good. Sees doctor again next week 03/02/21. Since surgery started off feeling better, now reports some good days, some bad days with pain, still taking some pain pills (a couple days per week.) Pain is right sided more than left, sometimes radiating into right UE, right shoulder blade. Symptoms similar to before surgery but not as bad. Has been using ice, states was told by physician to only use ice, not heat at first after surgery. Has been doing shoulder shrugs, neck turning exercises, looking up and down. Denies N/T. Also seeing a doctor due to bilateral leg pain right greater than left, keeping her up at night. More pain when first stands up from sitting. Getting injections in knees tomorrow. Trying to walk about 1/2 hour per day abut severity of pain limits her mobiity. PT-OP-C Subjective Start: 02/20/21 08:21 Freq: Status: Active Protocol: Document 05/17/21 15:15 [facility]AK (Rec: 05/17/21 15:46 [facility]AK [id number]) OP-PT Subjective Patient Comments Patient Comments Seeing Dr. Napier 06/13/21. Moving to [place] end of June . Has been overwhelmed and has been doing some of the exercises. Pain is very variable, sometimes takes Alleve. Hasn't started water walking yet. PT-OP-F Manual Assessment Start: 02/20/21 08:21 Freq: Status: Active Protocol: Document 02/21/21 09:47 [facility] (Rec: 02/21/21 14:27 [facility] [id number]) Manual Assessments Soft Tissue Assessment Soft Tissue Mobility Assessment increased soft tissue tightness bilateral c/s and upper traps right greater than left, right periscapular sregion PT-OP-G Mobility & Gait Start: 02/20/21 08:21 Freq: Status: Active Protocol: Document 02/21/21 09:47 [facility] (Rec: 02/21/21 14:27 [facility] [id number]) OP Mobility Evaluation Bed Mobility Rolling independent with log roll Supine to and from Sit independent with log roll PT-OP-H Neuro Start: 02/20/21 08:21 Freq: Status: Active Protocol: Document 02/21/21 09:47 [facility] (Rec: 02/21/21 14:27 [facility] [id number]) Sensation Evaluation Gross Sensation Gross Sensation WNL PT-OP-J Posture/Palpation/Skin Start: 02/20/21 08:21 Freq: Status: Active Protocol: Document 05/17/21 15:15 [facility] (Rec: 05/17/21 15:46 [facility] [id number]) Posture Evaluation Position Standing Head/C-Spine Posture Forward Head T-Spine Posture Increased Kyphosis L-Spine Posture Increased Lordosis Shoulder Posture (L) Rounded,(R) Rounded Shoulder Subluxation Position (L) Anterior,(R) Anterior Scapula Posture (L) Protracted,(R) Protracted Hip Posture (L) Externally Rotated,(R) Externally Rotated Foot Arch (L) Low Arch,(R) Low Arch PT-OP-K Range of Motion Start: 02/20/21 08:21 Freq: Status: Active Protocol: Document 05/17/21 15:15 [facility] (Rec: 05/17/21 15:46 [facility] [id number]) Cervical Spine Range of Motion Cervical Spine Active Testing Position Sitting Flexion 45 Extension 12 Rotation Left 39 Lateral Flexion Left 10 Lateral Flexion Right 35 ROM Limitations Soft Tissue Tightness,Pain Lumbar Spine Range of Motion Lumbar Spine Active ROM Limitations Soft Tissue Tightness,Pain Comments moderate decrease in ROM all motions except flexion PT-OP-M Strength Start: 02/20/21 08:21 Freq: Status: Active Protocol: Document 02/21/21 09:47 [facility] (Rec: 02/21/21 14:27 [facility] [id number]) Cervical Spine Strength Cervical Spine Manual Muscle Testing Comments not tested due to recent surgery Trunk Strength Trunk Manual Muscle Testing Comments not tested due to recent surgery Shoulder Strength Shoulder Manual Muscle Testing justin Comments no testing due to recent surgery Hand Punch Box Tender/Pinch Strength Hand Dominance Hand Dominance Right Hand Strength Right Punch Box Tender (lbs) 35 Left Punch Box Tender (lbs) 40 Hip Strength Hip Manual Muscle Testing justin Comments no MMT due to recent surgery, no straining PT-OP-Q Treatments Start: 02/20/21 08:21 Freq: Status: Active Protocol: Document 05/17/21 15:15 [facility] (Rec: 05/17/21 15:46 [facility] [id number]) Cardio Equipment Recumbent Stepper (Sci-Fit) Duration (Minutes) 10 Resistance 2.0 Seat Position 12 Other cued upright posture, 50 RPM. 5 min UE/LE, 5 min LE's only Gym Equipment Shuttle Recovery Unilateral Squats Resistance 25 Shuttle Recovery Platform Stable Reps/Time 10x justin Bilateral Squats Resistance 50 Shuttle Recovery Platform Stable Reps/Time 10x2 Therapeutic Exercises Sitting Exercises piriformis stretch Reps/Minutes 2x30 figure 4 stretch Reps/Minutes 2x30 Standing Exercises resisted sidestepping Resistance yellow band Reps/Minutes 10 feet Manual Therapy Treatment Soft Tissue Mobilization c/s, UT, LS, rhomboids Mobilization Type Myofascial Release,Strumming, Sustained Pressure PT-OP-R Modalities Start: 02/20/21 08:21 Freq: Status: Active Protocol: Document 05/17/21 15:15 [facility] (Rec: 05/17/21 15:46 [facility] [id number]) Hot Pack/Cold Pack Treatment Hot Pack Location cervical spine, lumbar spine Patient Position Hooklying Treatment Duration (minutes) 15 Patient Tolerance Good PT-OP-T Assessment and Plan Start: 02/20/21 08:21 Freq: Status: Active Protocol: Document 05/17/21 15:15 [facility] (Rec: 05/17/21 15:46 [facility] [id number]) Physical Therapy Assessment Goals Four Impairment postural dysfunction Short Term Goal (STG) Patient will demonstrate good understanding of neutral postural alignment and be independent with HEP for postural correction and stabilization 6/17/21: progressing, pt requires cuing for alignment and mirror for self feedback, introduced dowel at back during assimulation sweeping/ vacuum. STG Duration 04/10/21 Stockroom Coordinator Goal (LTG) Patient will be able to self- correct postural alignment without physical or verbal cues for improved spinal functioning and activity tolerance. LTG Duration 05/22/21 Three Impairment bilateral LE pain as high as 7 /10 interrupting sleep and mobility Usp Goal (LTG) Patient able to return to all usual activities including walking, and be able to sleep without interruption due to pain in LE's LTG Duration 05/22/21 Two Impairment Pain neck and UE's right greater than left as high as 6 /10 Usp Goal (LTG) Patient will be able to do all usual activities with pain no greater than 2/10 LTG Duration 05/22/21 One Impairment neck and shoulder disability index score 40% Stockroom Coordinator Goal (LTG) Decrease neck and shoulder disability index score to no greater than 15% as measure of improved neck and shoulder function. LTG Duration 05/22/21 Physical Therapy Plan Frequency and Duration Frequency of Treatment 2x/Week Duration of Treatment 12 weeks Plan of Care Start Date 02/21/21 Plan of Care End Date 05/22/21 Next Visit Focus/Plan Next Note Type Re-Evaluation Next Visit Plan Continue PT per POC to decrease pain and improve tolerance for all usual activities. closed chain functional strengthennig as tolerated.
--- NOTE | 2021-05-19 10:06 | PT.OPPOC ---
Physical, Occupational & Speech Therapy At [facility] Current Diagnoses Pain in right hip (05/19/21) Pain in left hip (05/19/21) Cervicalgia (05/19/21) Abnormal posture (05/19/21) Weakness (05/19/21) Visit Care Team Role Provider Type Lidia Sharpe MD Primary Care Provider Physician Specialty: Family Practice Address: [address] [place] [address], [address], [place], [address] Email: [email or web address] Larsen Attending Provider Non-Staff Referring Provider Specialty: Medical Address: [address] [place] [address], [address] [place] [place] [address], [id number] Email: Plan Of Care PT-OP-T Assessment and Plan Start: 02/20/21 08:21 Freq: Status: Active Protocol: Document 05/19/21 13:44 SAK (Rec: 05/19/21 14:30 [facility] [id number]) Physical Therapy Assessment Goals Four Impairment postural dysfunction Short Term Goal (STG) Patient will demonstrate good understanding of neutral postural alignment and be independent with HEP for postural correction and stabilization 03/03/21: progressing, pt requires cuing for alignment and mirror for self feedback, introduced dowel at back during assimulation sweeping/ vacuum. STG Duration goal met Marketing/Sales Person Goal (LTG) Patient will be able to self- correct postural alignment without physical or verbal cues for improved spinal functioning and activity tolerance. 05/19/21: good goal progress, not fully achieved yet. LTG Duration 06/21/21 Three Impairment bilateral LE pain as high as 7 /10 interrupting sleep and mobility Marketing/Sales Person Goal (LTG) Patient able to return to all usual activities including walking, and be able to sleep without interruption due to pain in LE's 05/19/21: pain 5/10, goal progress LTG Duration 06/21/21 Two Impairment Pain neck and UE's right greater than left as high as 6 /10 Half-Way Goal (LTG) Patient will be able to do all usual activities with pain no greater than 2/10 05/19/21: pain localized more to cervicothoracic junction today but as high as 5/10, goal progress LTG Duration 06/21/21 One Impairment neck and shoulder disability index score 40% Marketing/Sales Person Goal (LTG) Decrease neck and shoulder disability index score to no greater than 15% as measure of improved neck and shoulder function. 05/19/21: decreased to 34% LTG Duration 06/21/21 Progress Towards Goals Progress Towards Goals Progressing Toward Goals Assessment Summary Assessment Patient has made progress in all goal areas, but has not fully achieved. Recommend continued skilled physical therapy to help her continue to decrease her pain and improve her activity tolerance , especially as she looks at moving to [place] in June, needs further instruction and guidance in correct body mechanics and core stabilization. Physical Therapy Plan Frequency and Duration Frequency of Treatment 2x/Week Duration of Treatment 4 weeks Plan of Care Start Date 02/16/21 Plan of Care End Date 06/21/21 Therapeutic Interventions Therapeutic Interventions Home Exercise Program,Manual Therapy,Neuromuscular Re- education,Patient/Caregiver Education,Self-Care/Home Management,Soft Tissue Mobilization,Taping, Therapeutic Activities, Therapeutic Exercises Modalities Cold Pack/Ice Massage,Electric Stimulation,Hot Packs, Ultrasound Next Visit Focus/Plan Next Note Type Treatment Note Next Visit Plan Continue PT per POC to decrease pain and improve tolerance for all usual activities. closed chain functional strengthening as tolerated. Manual therapy and modalities as needed for pain management. Plan of Care Dates Plan of Care Start Date 02/16/21 Plan of Care End Date 06/21/21 Electronically Signed by: Swapna Jacome, PT 05/22/21 1005 Please Sign and Return: I have reviewed this Plan of Care and certify that the skilled therapy services above are required to meet the patient?s needs. Physician Signature Date Printed Name and Credentials Clinical Instructor Signature Printed Name and Credentials
--- NOTE | 2021-05-19 13:45 | PT.OTRE ---
Current Diagnoses Pain in right hip (05/19/21) Pain in left hip (05/19/21) Cervicalgia (05/19/21) Abnormal posture (05/19/21) Weakness (05/19/21) Past Medical History (Last Reviewed 09/29/19 @ 09:17 by GUME Krueger) Anemia Cataract (2013) Chicken pox Essential hypertension Excessive daytime sleepiness Foot pain H/O rhinoplasty (2003) Hearing loss (2009) Hemorrhoids (1986) History of cataract surgery (2013) Hx of nasal polypectomy (2006) Lymphoma (2006) Measles Migraines Nocturnal hypoxemia Obstructive sleep apnea Primary insomnia Recurrent sinusitis Surgical History (Last Reviewed 09/29/19 @ 09:17 by GUME Krueger) H/O rhinoplasty (2003) History of bladder suspension procedure History of cataract surgery (2013) Hx of nasal polypectomy (2006) S/P total abdominal hysterectomy and bilateral salpingo-oophorectomy Visit Care Team Role Provider Type Lidia Sharpe MD Primary Care Provider Physician Specialty: Family Practice Address: [address] [place] [address] [place], [address] Email: [email or web address] Larsen Attending Provider Non-Staff Referring Provider Specialty: Medical Address: [address] [place] [address] [place] [address] [place] [address], [id number] Email: Physical Therapy Re-Evaluation PT-OP-A Visit Information Start: 02/20/21 08:21 Freq: Status: Active Protocol: Document 05/19/21 13:44 SAK (Rec: 05/19/21 14:30 [facility]AK [id number]) Out-Patient Physical Therapy Visit Information Visit Information Visit Type Treatment Note Visit Start Time 13:45 Total Visit Minutes 54 Visit Number 14 Number of VULCANIZING PRESS OPERATOR Visits 0 Evaluation Information Evaluation Date 02/21/21 Precautions Precautions cervical fusion PT-OP-B Current Condition Start: 02/20/21 08:21 Freq: Status: Active Protocol: Document 05/17/21 15:15 SAK (Rec: 05/17/21 15:46 SAK [id number]) Current Condition History of Current Condition History of Current Condition 01/06/21: cervical fusion C567 anterior approach. Reports x- ray at follow-up 01/24/21 looked good. Sees doctor again next week 03/02/21. Since surgery started off feeling better, now reports some good days, some bad days with pain, still taking some pain pills (a couple days per week.) Pain is right sided more than left, sometimes radiating into right UE, right shoulder blade. Symptoms similar to before surgery but not as bad. Has been using ice, states was told by physician to only use ice, not heat at first after surgery. Has been doing shoulder shrugs, neck turning exercises, looking up and down. Denies N/T. Also seeing a doctor due to bilateral leg pain right greater than left, keeping her up at night. More pain when first stands up from sitting. Getting injections in knees tomorrow. Trying to walk about 1/2 hour per day abut severity of pain limits her mobiity. PT-OP-C Subjective Start: 02/20/21 08:21 Freq: Status: Active Protocol: Document 05/19/21 13:44 [facility] (Rec: 05/19/21 14:30 [facility] [id number]) OP-PT Subjective Patient Comments Patient Comments No new c/o, some decrease in tightness in neck and upper trap after last PT session. Did bands and open book exercise yesterday, otherwise no exercises due to being gone all day. Patient Questionnaires Neck Disability Index NDI Score 34 Oswestry Low Back Index Oswestry Score 22 OP-PT Pain Assessment Location anterior left thigh Intensity 5 lateral right LE Intensity 5 cervicothoracic junction Intensity 5 PT-OP-F Manual Assessment Start: 02/20/21 08:21 Freq: Status: Active Protocol: Document 02/21/21 09:47 [facility] (Rec: 02/21/21 14:27 [facility] [id number]) Manual Assessments Soft Tissue Assessment Soft Tissue Mobility Assessment increased soft tissue tightness bilateral c/s and upper traps right greater than left, right periscapular sregion PT-OP-G Mobility & Gait Start: 02/20/21 08:21 Freq: Status: Active Protocol: Document 02/21/21 09:47 [facility] (Rec: 02/21/21 14:27 [facility] [id number]) OP Mobility Evaluation Bed Mobility Rolling independent with log roll Supine to and from Sit independent with log roll PT-OP-H Neuro Start: 02/20/21 08:21 Freq: Status: Active Protocol: Document 02/21/21 09:47 [facility] (Rec: 02/21/21 14:27 [facility] [id number]) Sensation Evaluation Gross Sensation Gross Sensation WNL PT-OP-J Posture/Palpation/Skin Start: 02/20/21 08:21 Freq: Status: Active Protocol: Document 05/17/21 15:15 [facility] (Rec: 05/17/21 15:46 [facility] [id number]) Posture Evaluation Position Standing Head/C-Spine Posture Forward Head T-Spine Posture Increased Kyphosis L-Spine Posture Increased Lordosis Shoulder Posture (L) Rounded,(R) Rounded Shoulder Subluxation Position (L) Anterior,(R) Anterior Scapula Posture (L) Protracted,(R) Protracted Hip Posture (L) Externally Rotated,(R) Externally Rotated Foot Arch (L) Low Arch,(R) Low Arch PT-OP-K Range of Motion Start: 02/20/21 08:21 Freq: Status: Active Protocol: Document 05/17/21 15:15 [facility] (Rec: 05/17/21 15:46 [facility] [id number]) Cervical Spine Range of Motion Cervical Spine Active Testing Position Sitting Flexion 45 Extension 12 Rotation Left 39 Lateral Flexion Left 10 Lateral Flexion Right 35 ROM Limitations Soft Tissue Tightness,Pain Lumbar Spine Range of Motion Lumbar Spine Active ROM Limitations Soft Tissue Tightness,Pain Comments moderate decrease in ROM all motions except flexion PT-OP-M Strength Start: 02/20/21 08:21 Freq: Status: Active Protocol: Document 02/21/21 09:47 [facility] (Rec: 02/21/21 14:27 [facility] [id number]) Cervical Spine Strength Cervical Spine Manual Muscle Testing Comments not tested due to recent surgery Trunk Strength Trunk Manual Muscle Testing Comments not tested due to recent surgery Shoulder Strength Shoulder Manual Muscle Testing justin Comments no testing due to recent surgery Hand Patient Access Manager/Pinch Strength Hand Dominance Hand Dominance Right Hand Strength Right Patient Access Manager (lbs) 35 Left Patient Access Manager (lbs) 40 Hip Strength Hip Manual Muscle Testing justin Comments no MMT due to recent surgery, no straining PT-OP-Q Treatments Start: 02/20/21 08:21 Freq: Status: Active Protocol: Document 05/19/21 13:44 [facility] (Rec: 05/19/21 14:30 [facility] [id number]) Cardio Equipment Recumbent Stepper (Sci-Fit) Duration (Minutes) 10 Resistance 2.0 Seat Position 11 Other cued upright posture, 50 RPM. 5 min UE/LE, 5 min LE's only Gym Equipment Shuttle Recovery Unilateral Squats Resistance 37 Shuttle Recovery Platform Stable Reps/Time 10x justin Bilateral Squats Resistance 62 Shuttle Recovery Platform Stable Reps/Time 10x2 Therapeutic Exercises Supine Exercises pec major stretch Reps/Minutes 2x30 posture press Reps/Minutes 5x10 Sitting Exercises chin tuck Reps/Minutes 3x5 Comments cues to avoid cervical flexion Standing Exercises resisted sidestepping Resistance yellow band Reps/Minutes 10 feet Manual Therapy Treatment Soft Tissue Mobilization c/s, UT, LS, rhomboids Mobilization Type Myofascial Release,Strumming, Sustained Pressure PT-OP-R Modalities Start: 02/20/21 08:21 Freq: Status: Active Protocol: Document 05/19/21 13:44 [facility] (Rec: 05/19/21 14:30 [facility] [id number]) Hot Pack/Cold Pack Treatment Hot Pack Location cervical spine, lumbar spine Patient Position Hooklying Treatment Duration (minutes) 15 Patient Tolerance Good PT-OP-T Assessment and Plan Start: 02/20/21 08:21 Freq: Status: Active Protocol: Document 05/19/21 13:44 [facility] (Rec: 05/19/21 14:30 [facility] [id number]) Physical Therapy Assessment Goals Four Impairment postural dysfunction Short Term Goal (STG) Patient will demonstrate good understanding of neutral postural alignment and be independent with HEP for postural correction and stabilization 03/03/21: progressing, pt requires cuing for alignment and mirror for self feedback, introduced dowel at back during assimulation sweeping/ vacuum. STG Duration goal met Detention Goal (LTG) Patient will be able to self- correct postural alignment without physical or verbal cues for improved spinal functioning and activity tolerance. 05/19/21: good goal progress, not fully achieved yet. LTG Duration 06/21/21 Three Impairment bilateral LE pain as high as 7 /10 interrupting sleep and mobility Detention Goal (LTG) Patient able to return to all usual activities including walking, and be able to sleep without interruption due to pain in LE's 05/19/21: pain 5/10, goal progress LTG Duration 06/21/21 Two Impairment Pain neck and UE's right greater than left as high as 6 /10 Detention Goal (LTG) Patient will be able to do all usual activities with pain no greater than 2/10 05/19/21: pain localized more to cervicothoracic junction today but as high as 5/10, goal progress LTG Duration 06/21/21 One Impairment neck and shoulder disability index score 40% Ethylbenzene Oxidizer Goal (LTG) Decrease neck and shoulder disability index score to no greater than 15% as measure of improved neck and shoulder function. 05/19/21: decreased to 34% LTG Duration 06/21/21 Progress Towards Goals Progress Towards Goals Progressing Toward Goals Assessment Summary Assessment Patient has made progress in all goal areas, but has not fully achieved. Recommend continued skilled physical therapy to help her continue to decrease her pain and improve her activity tolerance , especially as she looks at moving to [place] in June, needs further instruction and guidance in correct body mechanics and core stabilization. Physical Therapy Plan Frequency and Duration Frequency of Treatment 2x/Week Duration of Treatment 4 weeks Plan of Care Start Date 02/16/21 Plan of Care End Date 06/21/21 Therapeutic Interventions Therapeutic Interventions Home Exercise Program,Manual Therapy,Neuromuscular Re- education,Patient/Caregiver Education,Self-Care/Home Management,Soft Tissue Mobilization,Taping, Therapeutic Activities, Therapeutic Exercises Modalities Cold Pack/Ice Massage,Electric Stimulation,Hot Packs, Ultrasound Next Visit Focus/Plan Next Note Type Treatment Note Next Visit Plan Continue PT per POC to decrease pain and improve tolerance for all usual activities. closed chain functional strengthening as tolerated. Manual therapy and modalities as needed for pain management.
--- NOTE | 2021-05-24 12:51 | PT.OTN ---
Current Diagnoses Pain in right hip (05/24/21) Pain in left hip (05/24/21) Cervicalgia (05/24/21) Abnormal posture (05/24/21) Weakness (05/24/21) Physical Therapy Treatment Note PT-OP-A Visit Information Start: 02/20/21 08:21 Freq: Status: Active Protocol: Document 05/24/21 12:11 [facility] (Rec: 05/24/21 12:50 [facility] [id number]) Out-Patient Physical Therapy Visit Information Visit Information Visit Type Treatment Note Visit Start Time 12:00 Visit Stop Time 12:45 Total Visit Minutes 45 Visit Number 15 Number of CERTIFIED INDOOR ENVIRONMENTALIST Visits 0 Evaluation Information Evaluation Date 02/21/21 Precautions Precautions cervical fusion PT-OP-B Current Condition Start: 02/20/21 08:21 Freq: Status: Active Protocol: Document 05/24/21 12:11 [facility] (Rec: 05/24/21 12:50 [facility] [id number]) Current Condition History of Current Condition History of Current Condition 01/06/21: cervical fusion C567 anterior approach. Reports x- ray at follow-up 01/24/21 looked good. Sees doctor again next week 03/02/21. Since surgery started off feeling better, now reports some good days, some bad days with pain, still taking some pain pills (a couple days per week.) Pain is right sided more than left, sometimes radiating into right UE, right shoulder blade. Symptoms similar to before surgery but not as bad. Has been using ice, states was told by physician to only use ice, not heat at first after surgery. Has been doing shoulder shrugs, neck turning exercises, looking up and down. Denies N/T. Also seeing a doctor due to bilateral leg pain right greater than left, keeping her up at night. More pain when first stands up from sitting. Getting injections in knees tomorrow. Trying to walk about 1/2 hour per day abut severity of pain limits her mobiity. PT-OP-C Subjective Start: 02/20/21 08:21 Freq: Status: Active Protocol: Document 05/24/21 12:11 [facility] (Rec: 05/24/21 12:50 [facility] [id number]) OP-PT Subjective Patient Comments Patient Comments Increased soreness from packing; neck, low back, LE. PT-OP-F Manual Assessment Start: 02/20/21 08:21 Freq: Status: Active Protocol: Document 02/21/21 09:47 [facility] (Rec: 02/21/21 14:27 [facility] [id number]) Manual Assessments Soft Tissue Assessment Soft Tissue Mobility Assessment increased soft tissue tightness bilateral c/s and upper traps right greater than left, right periscapular sregion PT-OP-G Mobility & Gait Start: 02/20/21 08:21 Freq: Status: Active Protocol: Document 02/21/21 09:47 [facility] (Rec: 02/21/21 14:27 [facility] [id number]) OP Mobility Evaluation Bed Mobility Rolling independent with log roll Supine to and from Sit independent with log roll PT-OP-H Neuro Start: 02/20/21 08:21 Freq: Status: Active Protocol: Document 02/21/21 09:47 [facility] (Rec: 02/21/21 14:27 [facility] [id number]) Sensation Evaluation Gross Sensation Gross Sensation WNL PT-OP-J Posture/Palpation/Skin Start: 02/20/21 08:21 Freq: Status: Active Protocol: Document 05/17/21 15:15 [facility] (Rec: 05/17/21 15:46 [facility] [id number]) Posture Evaluation Position Standing Head/C-Spine Posture Forward Head T-Spine Posture Increased Kyphosis L-Spine Posture Increased Lordosis Shoulder Posture (L) Rounded,(R) Rounded Shoulder Subluxation Position (L) Anterior,(R) Anterior Scapula Posture (L) Protracted,(R) Protracted Hip Posture (L) Externally Rotated,(R) Externally Rotated Foot Arch (L) Low Arch,(R) Low Arch PT-OP-K Range of Motion Start: 02/20/21 08:21 Freq: Status: Active Protocol: Document 05/17/21 15:15 [facility] (Rec: 05/17/21 15:46 [facility] [id number]) Cervical Spine Range of Motion Cervical Spine Active Testing Position Sitting Flexion 45 Extension 12 Rotation Left 39 Lateral Flexion Left 10 Lateral Flexion Right 35 ROM Limitations Soft Tissue Tightness,Pain Lumbar Spine Range of Motion Lumbar Spine Active ROM Limitations Soft Tissue Tightness,Pain Comments moderate decrease in ROM all motions except flexion PT-OP-M Strength Start: 02/20/21 08:21 Freq: Status: Active Protocol: Document 02/21/21 09:47 [facility] (Rec: 02/21/21 14:27 [facility] [id number]) Cervical Spine Strength Cervical Spine Manual Muscle Testing Comments not tested due to recent surgery Trunk Strength Trunk Manual Muscle Testing Comments not tested due to recent surgery Shoulder Strength Shoulder Manual Muscle Testing justin Comments no testing due to recent surgery Hand Cat Cracker Operator/Pinch Strength Hand Dominance Hand Dominance Right Hand Strength Right Cat Cracker Operator (lbs) 35 Left Cat Cracker Operator (lbs) 40 Hip Strength Hip Manual Muscle Testing justin Comments no MMT due to recent surgery, no straining PT-OP-Q Treatments Start: 02/20/21 08:21 Freq: Status: Active Protocol: Document 05/24/21 12:11 [facility] (Rec: 05/24/21 12:50 [facility] [id number]) Cardio Equipment Recumbent Stepper (Sci-Fit) Duration (Minutes) 10 Resistance 2.0 Seat Position 11 Other cued upright posture, 50 RPM. justin UE's and LE's Gym Equipment Shuttle Recovery Unilateral Squats Resistance 37 Shuttle Recovery Platform Stable Reps/Time 10x justin Bilateral Squats Resistance 62 Shuttle Recovery Platform Stable Reps/Time 10x2 Therapeutic Exercises Standing Exercises resisted sidestepping Resistance yellow band Reps/Minutes 10 feet Manual Therapy Treatment Soft Tissue Mobilization c/s, UT, LS, rhomboids Mobilization Type Myofascial Release,Strumming, Sustained Pressure glutes Body Location justin glute med & max Mobilization Type Instrument Assisted,Sustained Pressure,Trigger Point Release Intensity/Depth Moderate Body Position Sidelying Comments massage stick (white 1 Body Location right IT band, lateral quad Mobilization Type Instrument Assisted,Myofascial Release,Strumming,Sustained Pressure Intensity/Depth Moderate Body Position Sidelying Comments massage stick (white) PT-OP-R Modalities Start: 02/20/21 08:21 Freq: Status: Active Protocol: Document 05/24/21 12:11 [facility] (Rec: 05/24/21 12:50 [facility] [id number]) Hot Pack/Cold Pack Treatment Hot Pack Comments refused due to needing to leave for mtg PT-OP-T Assessment and Plan Start: 02/20/21 08:21 Freq: Status: Active Protocol: Document 05/24/21 12:11 [facility] (Rec: 05/24/21 12:50 [facility] [id number]) Physical Therapy Assessment Goals Four Impairment postural dysfunction Short Term Goal (STG) Patient will demonstrate good understanding of neutral postural alignment and be independent with HEP for postural correction and stabilization 03/03/21: progressing, pt requires cuing for alignment and mirror for self feedback, introduced dowel at back during assimulation sweeping/ vacuum. STG Duration goal met [place] Goal (LTG) Patient will be able to self- correct postural alignment without physical or verbal cues for improved spinal functioning and activity tolerance. 05/19/21: good goal progress, not fully achieved yet. LTG Duration 06/21/21 Three Impairment bilateral LE pain as high as 7 /10 interrupting sleep and mobility [place] Goal (LTG) Patient able to return to all usual activities including walking, and be able to sleep without interruption due to pain in LE's 05/19/21: pain 5/10, goal progress LTG Duration 06/21/21 Two Impairment Pain neck and UE's right greater than left as high as 6 /10 [place] Goal (LTG) Patient will be able to do all usual activities with pain no greater than 2/10 05/19/21: pain localized more to cervicothoracic junction today but as high as 5/10, goal progress LTG Duration 06/21/21 One Impairment neck and shoulder disability index score 40% [facility] Goal (LTG) Decrease neck and shoulder disability index score to no greater than 15% as measure of improved neck and shoulder function. 05/19/21: decreased to 34% LTG Duration 06/21/21 Assessment Summary Assessment Increased pain from packing boxes. Demonstrates good understanding of posture and body mechanics principles but reports she gets involved and forgets. Physical Therapy Plan Frequency and Duration Frequency of Treatment 2x/Week Duration of Treatment 4 weeks Plan of Care Start Date 02/16/21 Plan of Care End Date 06/21/21 Therapeutic Interventions Therapeutic Interventions Home Exercise Program,Manual Therapy,Neuromuscular Re- education,Patient/Caregiver Education,Self-Care/Home Management,Soft Tissue Mobilization,Taping, Therapeutic Activities, Therapeutic Exercises Modalities Cold Pack/Ice Massage,Electric Stimulation,Hot Packs, Ultrasound Next Visit Focus/Plan Next Note Type Treatment Note Next Visit Plan Continue PT per POC to decrease pain and improve tolerance for all usual activities. closed chain functional strengthening as tolerated. Manual therapy and modalities as needed for pain management.
--- NOTE | 2021-05-26 09:04 | PT.OTN ---
Current Diagnoses Pain in right hip (05/26/21) Pain in left hip (05/26/21) Cervicalgia (05/26/21) Abnormal posture (05/26/21) Weakness (05/26/21) Physical Therapy Treatment Note PT-OP-A Visit Information Start: 02/20/21 08:21 Freq: Status: Active Protocol: Document 05/26/21 08:21 [facility] (Rec: 05/26/21 08:48 [facility] [id number]) Out-Patient Physical Therapy Visit Information Visit Information Visit Type Treatment Note Visit Start Time 08:15 Visit Stop Time 09:15 Total Visit Minutes 45 Visit Number 16 Number of WASHER HAND Visits 0 Evaluation Information Evaluation Date 02/21/21 PT-OP-B Current Condition Start: 02/20/21 08:21 Freq: Status: Active Protocol: Document 05/26/21 08:21 [facility] (Rec: 05/26/21 08:48 [facility] [id number]) Current Condition History of Current Condition History of Current Condition 01/06/21: cervical fusion C567 anterior approach. Reports x- ray at follow-up 01/24/21 looked good. Sees doctor again next week 03/02/21. Since surgery started off feeling better, now reports some good days, some bad days with pain, still taking some pain pills (a couple days per week.) Pain is right sided more than left, sometimes radiating into right UE, right shoulder blade. Symptoms similar to before surgery but not as bad. Has been using ice, states was told by physician to only use ice, not heat at first after surgery. Has been doing shoulder shrugs, neck turning exercises, looking up and down. Denies N/T. Also seeing a doctor due to bilateral leg pain right greater than left, keeping her up at night. More pain when first stands up from sitting. Getting injections in knees tomorrow. Trying to walk about 1/2 hour per day abut severity of pain limits her mobiity. PT-OP-C Subjective Start: 02/20/21 08:21 Freq: Status: Active Protocol: Document 05/26/21 08:21 [facility] (Rec: 05/26/21 08:48 [facility] [id number]) OP-PT Subjective Patient Comments Patient Comments Some aches and pains from packing, trying to remember all PT recommendations for posture and body mechanics. PT-OP-F Manual Assessment Start: 02/20/21 08:21 Freq: Status: Active Protocol: Document 02/21/21 09:47 [facility] (Rec: 02/21/21 14:27 [facility] [id number]) Manual Assessments Soft Tissue Assessment Soft Tissue Mobility Assessment increased soft tissue tightness bilateral c/s and upper traps right greater than left, right periscapular sregion PT-OP-G Mobility & Gait Start: 02/20/21 08:21 Freq: Status: Active Protocol: Document 02/21/21 09:47 [facility] (Rec: 02/21/21 14:27 [facility] [id number]) OP Mobility Evaluation Bed Mobility Rolling independent with log roll Supine to and from Sit independent with log roll PT-OP-H Neuro Start: 02/20/21 08:21 Freq: Status: Active Protocol: Document 02/21/21 09:47 [facility] (Rec: 02/21/21 14:27 [facility] [id number]) Sensation Evaluation Gross Sensation Gross Sensation WNL PT-OP-J Posture/Palpation/Skin Start: 02/20/21 08:21 Freq: Status: Active Protocol: Document 05/17/21 15:15 [facility] (Rec: 05/17/21 15:46 [facility] [id number]) Posture Evaluation Position Standing Head/C-Spine Posture Forward Head T-Spine Posture Increased Kyphosis L-Spine Posture Increased Lordosis Shoulder Posture (L) Rounded,(R) Rounded Shoulder Subluxation Position (L) Anterior,(R) Anterior Scapula Posture (L) Protracted,(R) Protracted Hip Posture (L) Externally Rotated,(R) Externally Rotated Foot Arch (L) Low Arch,(R) Low Arch PT-OP-K Range of Motion Start: 02/20/21 08:21 Freq: Status: Active Protocol: Document 05/17/21 15:15 [facility] (Rec: 05/17/21 15:46 [facility] [id number]) Cervical Spine Range of Motion Cervical Spine Active Testing Position Sitting Flexion 45 Extension 12 Rotation Left 39 Lateral Flexion Left 10 Lateral Flexion Right 35 ROM Limitations Soft Tissue Tightness,Pain Lumbar Spine Range of Motion Lumbar Spine Active ROM Limitations Soft Tissue Tightness,Pain Comments moderate decrease in ROM all motions except flexion PT-OP-M Strength Start: 02/20/21 08:21 Freq: Status: Active Protocol: Document 02/21/21 09:47 [facility] (Rec: 02/21/21 14:27 [facility] [id number]) Cervical Spine Strength Cervical Spine Manual Muscle Testing Comments not tested due to recent surgery Trunk Strength Trunk Manual Muscle Testing Comments not tested due to recent surgery Shoulder Strength Shoulder Manual Muscle Testing justin Comments no testing due to recent surgery Hand International Logistics Coordinator/Pinch Strength Hand Dominance Hand Dominance Right Hand Strength Right International Logistics Coordinator (lbs) 35 Left International Logistics Coordinator (lbs) 40 Hip Strength Hip Manual Muscle Testing justin Comments no MMT due to recent surgery, no straining PT-OP-Q Treatments Start: 02/20/21 08:21 Freq: Status: Active Protocol: Document 05/26/21 08:21 [facility] (Rec: 05/26/21 08:48 [facility] [id number]) Cardio Equipment Recumbent Stepper (Sci-Fit) Duration (Minutes) 10 Resistance 2.0 Seat Position 11 Other cued upright posture, 50 RPM. justin UE's and LE's Gym Equipment Shuttle Recovery Unilateral Squats Resistance 37 Shuttle Recovery Platform Stable Reps/Time 10x justin Bilateral Squats Resistance 62 Shuttle Recovery Platform Stable Reps/Time 10x2 Therapeutic Exercises Supine Exercises pec major stretch Reps/Minutes 2x30 Sidelying Exercises open book Reps/Minutes 5x Comments gentle, pain-free ROM Sitting Exercises hamstring stretch Reps/Minutes 2x30 shoulder rolls Reps/Minutes 5x pec stretch Reps/Minutes 2x30 piriformis stretch Reps/Minutes 2x30 figure 4 stretch Reps/Minutes 2x30 Standing Exercises squats Equipment Used chair Reps/Minutes 10x resisted sidestepping Resistance yellow band Reps/Minutes 10 feet Manual Therapy Treatment Soft Tissue Mobilization c/s, UT, LS, rhomboids Mobilization Type Myofascial Release,Strumming, Sustained Pressure glutes Body Location justin glute med & max Mobilization Type Instrument Assisted,Sustained Pressure,Trigger Point Release Intensity/Depth Moderate Body Position Sidelying Comments massage stick (white 1 Body Location right IT band, lateral quad Mobilization Type Instrument Assisted,Myofascial Release,Strumming,Sustained Pressure Intensity/Depth Moderate Body Position Sidelying Comments massage stick (white) Self-Care/Home Management Treatment Education Patient Education Body Mechanics,Home Exercise Program,Posture PT-OP-R Modalities Start: 02/20/21 08:21 Freq: Status: Active Protocol: Document 05/26/21 08:21 [facility] (Rec: 05/26/21 09:04 [facility] [id number]) Hot Pack/Cold Pack Treatment Hot Pack Treatment Duration (minutes) 15 Patient Tolerance Good PT-OP-T Assessment and Plan Start: 02/20/21 08:21 Freq: Status: Active Protocol: Document 05/26/21 08:21 [facility] (Rec: 05/26/21 08:48 [facility] [id number]) Physical Therapy Assessment Goals Four Impairment postural dysfunction Short Term Goal (STG) Patient will demonstrate good understanding of neutral postural alignment and be independent with HEP for postural correction and stabilization 03/03/21: progressing, pt requires cuing for alignment and mirror for self feedback, introduced dowel at back during assimulation sweeping/ vacuum. STG Duration goal met Raw Stock Drier Tender Goal (LTG) Patient will be able to self- correct postural alignment without physical or verbal cues for improved spinal functioning and activity tolerance. 05/19/21: good goal progress, not fully achieved yet. LTG Duration 06/21/21 Three Impairment bilateral LE pain as high as 7 /10 interrupting sleep and mobility Raw Stock Drier Tender Goal (LTG) Patient able to return to all usual activities including walking, and be able to sleep without interruption due to pain in LE's 05/19/21: pain 5/10, goal progress LTG Duration 06/21/21 Two Impairment Pain neck and UE's right greater than left as high as 6 /10 Half-Way Goal (LTG) Patient will be able to do all usual activities with pain no greater than 2/10 05/19/21: pain localized more to cervicothoracic junction today but as high as 5/10, goal progress LTG Duration 06/21/21 One Impairment neck and shoulder disability index score 40% Half-Way Goal (LTG) Decrease neck and shoulder disability index score to no greater than 15% as measure of improved neck and shoulder function. 05/19/21: decreased to 34% LTG Duration 06/21/21 Progress Towards Goals Progress Towards Goals Progressing Toward Goals Assessment Summary Assessment Improving understanding of posture and body mechanics principles, but needs cues. Physical Therapy Plan Frequency and Duration Frequency of Treatment 2x/Week Duration of Treatment 4 weeks Plan of Care Start Date 02/16/21 Plan of Care End Date 06/21/21 Therapeutic Interventions Therapeutic Interventions Home Exercise Program,Manual Therapy,Neuromuscular Re- education,Patient/Caregiver Education,Self-Care/Home Management,Soft Tissue Mobilization,Taping, Therapeutic Activities, Therapeutic Exercises Modalities Cold Pack/Ice Massage,Electric Stimulation,Hot Packs, Ultrasound Next Visit Focus/Plan Next Note Type Treatment Note Next Visit Plan Continue progressive functinal ther ex with emphasis on core stabilization, posture, body mechaniics.
--- NOTE | 2021-06-16 16:12 | PT.OTN ---
Current Diagnoses Pain in right hip (06/16/21) Pain in left hip (06/16/21) Cervicalgia (06/16/21) Abnormal posture (06/16/21) Weakness (06/16/21) Physical Therapy Treatment Note PT-OP-A Visit Information Start: 02/20/21 08:21 Freq: Status: Active Protocol: Document 06/16/21 15:19 [facility] (Rec: 06/16/21 16:11 [facility] [id number]) Out-Patient Physical Therapy Visit Information Visit Information Visit Type Treatment Note Visit Start Time 15:16 Visit Stop Time 09:15 Total Visit Minutes 60 Visit Number 17 Number of TREASURER [employer] Visits 0 Precautions Precautions cervical fusion PT-OP-B Current Condition Start: 02/20/21 08:21 Freq: Status: Active Protocol: Document 06/16/21 15:19 [facility] (Rec: 06/16/21 16:11 [facility] [id number]) Current Condition History of Current Condition History of Current Condition 01/06/21: cervical fusion C567 anterior approach. Reports x- ray at follow-up 01/24/21 looked good. Sees doctor again next week 03/02/21. Since surgery started off feeling better, now reports some good days, some bad days with pain, still taking some pain pills (a couple days per week.) Pain is right sided more than left, sometimes radiating into right UE, right shoulder blade. Symptoms similar to before surgery but not as bad. Has been using ice, states was told by physician to only use ice, not heat at first after surgery. Has been doing shoulder shrugs, neck turning exercises, looking up and down. Denies N/T. Also seeing a doctor due to bilateral leg pain right greater than left, keeping her up at night. More pain when first stands up from sitting. Getting injections in knees tomorrow. Trying to walk about 1/2 hour per day abut severity of pain limits her mobiity. PT-OP-C Subjective Start: 02/20/21 08:21 Freq: Status: Active Protocol: Document 06/16/21 15:19 [facility] (Rec: 06/16/21 16:11 [facility] [id number]) OP-PT Subjective Patient Comments Patient Comments Trying to use good posture with packing to move, having more neck pain and LE pain. Having LE injection tomorrow. Moving 07/09/21. Sees spine surgeon 07/06/21. PT-OP-F Manual Assessment Start: 02/20/21 08:21 Freq: Status: Active Protocol: Document 02/21/21 09:47 [facility] (Rec: 02/21/21 14:27 [facility] [id number]) Manual Assessments Soft Tissue Assessment Soft Tissue Mobility Assessment increased soft tissue tightness bilateral c/s and upper traps right greater than left, right periscapular sregion PT-OP-G Mobility & Gait Start: 02/20/21 08:21 Freq: Status: Active Protocol: Document 02/21/21 09:47 [facility] (Rec: 02/21/21 14:27 [facility] [id number]) OP Mobility Evaluation Bed Mobility Rolling independent with log roll Supine to and from Sit independent with log roll PT-OP-H Neuro Start: 02/20/21 08:21 Freq: Status: Active Protocol: Document 02/21/21 09:47 [facility] (Rec: 02/21/21 14:27 [facility] [id number]) Sensation Evaluation Gross Sensation Gross Sensation WNL PT-OP-J Posture/Palpation/Skin Start: 02/20/21 08:21 Freq: Status: Active Protocol: Document 05/17/21 15:15 [facility] (Rec: 05/17/21 15:46 [facility] [id number]) Posture Evaluation Position Standing Head/C-Spine Posture Forward Head T-Spine Posture Increased Kyphosis L-Spine Posture Increased Lordosis Shoulder Posture (L) Rounded,(R) Rounded Shoulder Subluxation Position (L) Anterior,(R) Anterior Scapula Posture (L) Protracted,(R) Protracted Hip Posture (L) Externally Rotated,(R) Externally Rotated Foot Arch (L) Low Arch,(R) Low Arch PT-OP-K Range of Motion Start: 02/20/21 08:21 Freq: Status: Active Protocol: Document 05/17/21 15:15 [facility] (Rec: 05/17/21 15:46 [facility] [id number]) Cervical Spine Range of Motion Cervical Spine Active Testing Position Sitting Flexion 45 Extension 12 Rotation Left 39 Lateral Flexion Left 10 Lateral Flexion Right 35 ROM Limitations Soft Tissue Tightness,Pain Lumbar Spine Range of Motion Lumbar Spine Active ROM Limitations Soft Tissue Tightness,Pain Comments moderate decrease in ROM all motions except flexion PT-OP-M Strength Start: 02/20/21 08:21 Freq: Status: Active Protocol: Document 02/21/21 09:47 [facility] (Rec: 02/21/21 14:27 [facility] [id number]) Cervical Spine Strength Cervical Spine Manual Muscle Testing Comments not tested due to recent surgery Trunk Strength Trunk Manual Muscle Testing Comments not tested due to recent surgery Shoulder Strength Shoulder Manual Muscle Testing justin Comments no testing due to recent surgery Hand Alliances Consultant/Pinch Strength Hand Dominance Hand Dominance Right Hand Strength Right Alliances Consultant (lbs) 35 Left Alliances Consultant (lbs) 40 Hip Strength Hip Manual Muscle Testing justin Comments no MMT due to recent surgery, no straining PT-OP-Q Treatments Start: 02/20/21 08:21 Freq: Status: Active Protocol: Document 06/16/21 15:19 [facility] (Rec: 06/16/21 16:11 [facility] [id number]) Cardio Equipment Recumbent Stepper (Sci-Fit) Duration (Minutes) 10 Resistance 2.0 Seat Position 11 Other cued upright posture, 50 RPM. justin UE's and LE's Gym Equipment Shuttle Recovery Unilateral Squats Resistance 37 Shuttle Recovery Platform Stable Reps/Time 10x justin Bilateral Squats Resistance 62 Shuttle Recovery Platform Stable Reps/Time 10x2 Therapeutic Exercises Supine Exercises pec major stretch Reps/Minutes 2x30 Sitting Exercises hamstring stretch Reps/Minutes 2x30 shoulder rolls Reps/Minutes 5x pec stretch Reps/Minutes 2x30 piriformis stretch Reps/Minutes 2x30 Manual Therapy Treatment Soft Tissue Mobilization c/s, UT, LS, rhomboids Mobilization Type Myofascial Release,Strumming, Sustained Pressure Body Position Supine Comments suboccipital release Self-Care/Home Management Treatment Education Patient Education Body Mechanics,Home Exercise Program,Posture PT-OP-R Modalities Start: 02/20/21 08:21 Freq: Status: Active Protocol: Document 06/16/21 15:19 [facility] (Rec: 06/16/21 16:11 [facility] [id number]) Hot Pack/Cold Pack Treatment Hot Pack Location justin c/s, ut, spine Patient Position Hooklying Treatment Duration (minutes) 15 Patient Tolerance Good PT-OP-T Assessment and Plan Start: 02/20/21 08:21 Freq: Status: Active Protocol: Document 06/16/21 15:19 [facility] (Rec: 06/16/21 16:11 [facility] [id number]) Physical Therapy Assessment Goals Four Impairment postural dysfunction Short Term Goal (STG) Patient will demonstrate good understanding of neutral postural alignment and be independent with HEP for postural correction and stabilization 03/03/21: progressing, pt requires cuing for alignment and mirror for self feedback, introduced dowel at back during assimulation sweeping/ vacuum. STG Duration goal met Nursing Home Goal (LTG) Patient will be able to self- correct postural alignment without physical or verbal cues for improved spinal functioning and activity tolerance. 05/19/21: good goal progress, not fully achieved yet. LTG Duration 06/21/21 Three Impairment bilateral LE pain as high as 7 /10 interrupting sleep and mobility Lane Marker Installer Goal (LTG) Patient able to return to all usual activities including walking, and be able to sleep without interruption due to pain in LE's 05/19/21: pain 5/10, goal progress LTG Duration 06/21/21 Two Impairment Pain neck and UE's right greater than left as high as 6 /10 Lane Marker Installer Goal (LTG) Patient will be able to do all usual activities with pain no greater than 2/10 05/19/21: pain localized more to cervicothoracic junction today but as high as 5/10, goal progress LTG Duration 06/21/21 One Impairment neck and shoulder disability index score 40% Lane Marker Installer Goal (LTG) Decrease neck and shoulder disability index score to no greater than 15% as measure of improved neck and shoulder function. 05/19/21: decreased to 34% LTG Duration 06/21/21 Assessment Summary Assessment Patient with increased pain and muscle tension due to packing for move, movers coming next week to take majority of stuff. Leaving town 07/04/20. Having LE injections tomorrow so requests ephasis on neck . Decreased pain after treatment reported. Reviewed need for pacing with packing, neutral posture and spine protection. Physical Therapy Plan Frequency and Duration Frequency of Treatment 2x/Week Duration of Treatment 4 weeks Plan of Care Start Date 02/16/21 Plan of Care End Date 06/21/21 Therapeutic Interventions Therapeutic Interventions Home Exercise Program,Manual Therapy,Neuromuscular Re- education,Patient/Caregiver Education,Self-Care/Home Management,Soft Tissue Mobilization,Taping, Therapeutic Activities, Therapeutic Exercises Modalities Cold Pack/Ice Massage,Electric Stimulation,Hot Packs, Ultrasound Next Visit Focus/Plan Next Note Type Treatment Note Next Visit Plan Continue progressive functinal ther ex with emphasis on core stabilization, posture, body mechaniics, stsress management .
--- NOTE | 2021-06-23 14:04 | PT-OP ANOTE ---
DNS for PT appointment
--- NOTE | 2021-06-29 14:30 | PT.OTN ---
Current Diagnoses Pain in right hip (06/29/21) Pain in left hip (06/29/21) Cervicalgia (06/29/21) Abnormal posture (06/29/21) Weakness (06/29/21) Physical Therapy Treatment Note PT-OP-A Visit Information Start: 02/20/21 08:21 Freq: Status: Active Protocol: Document 06/29/21 13:07 SAK (Rec: 06/29/21 13:12 SAK [id number]) Out-Patient Physical Therapy Visit Information Visit Information Visit Type Treatment Note Visit Start Time 13:00 Total Visit Minutes 60 Visit Number 18 Precautions Precautions cervical fusion PT-OP-B Current Condition Start: 02/20/21 08:21 Freq: Status: Active Protocol: Document 06/16/21 15:19 SAK (Rec: 06/16/21 16:11 SAK [id number]) Current Condition History of Current Condition History of Current Condition 01/06/21: cervical fusion C567 anterior approach. Reports x- ray at follow-up 01/24/21 looked good. Sees doctor again next week 03/02/21. Since surgery started off feeling better, now reports some good days, some bad days with pain, still taking some pain pills (a couple days per week.) Pain is right sided more than left, sometimes radiating into right UE, right shoulder blade. Symptoms similar to before surgery but not as bad. Has been using ice, states was told by physician to only use ice, not heat at first after surgery. Has been doing shoulder shrugs, neck turning exercises, looking up and down. Denies N/T. Also seeing a doctor due to bilateral leg pain right greater than left, keeping her up at night. More pain when first stands up from sitting. Getting injections in knees tomorrow. Trying to walk about 1/2 hour per day abut severity of pain limits her mobiity. PT-OP-C Subjective Start: 02/20/21 08:21 Freq: Status: Active Protocol: Document 06/29/21 13:07 SAK (Rec: 06/29/21 13:12 SAK [id number]) OP-PT Subjective Patient Comments Patient Comments Had injection right hip , and left hip 06/28/21. Neck and shoulders sore from getting ready to clean. Agreeable to no ex for LE's due to injection yesterday, will foruc on neck pain. PT-OP-F Manual Assessment Start: 02/20/21 08:21 Freq: Status: Active Protocol: Document 02/21/21 09:47 [facility] (Rec: 02/21/21 14:27 [facility] [id number]) Manual Assessments Soft Tissue Assessment Soft Tissue Mobility Assessment increased soft tissue tightness bilateral c/s and upper traps right greater than left, right periscapular sregion PT-OP-G Mobility & Gait Start: 02/20/21 08:21 Freq: Status: Active Protocol: Document 02/21/21 09:47 [facility] (Rec: 02/21/21 14:27 [facility] [id number]) OP Mobility Evaluation Bed Mobility Rolling independent with log roll Supine to and from Sit independent with log roll PT-OP-H Neuro Start: 02/20/21 08:21 Freq: Status: Active Protocol: Document 02/21/21 09:47 [facility] (Rec: 02/21/21 14:27 [facility] [id number]) Sensation Evaluation Gross Sensation Gross Sensation WNL PT-OP-J Posture/Palpation/Skin Start: 02/20/21 08:21 Freq: Status: Active Protocol: Document 05/17/21 15:15 [facility] (Rec: 05/17/21 15:46 [facility] [id number]) Posture Evaluation Position Standing Head/C-Spine Posture Forward Head T-Spine Posture Increased Kyphosis L-Spine Posture Increased Lordosis Shoulder Posture (L) Rounded,(R) Rounded Shoulder Subluxation Position (L) Anterior,(R) Anterior Scapula Posture (L) Protracted,(R) Protracted Hip Posture (L) Externally Rotated,(R) Externally Rotated Foot Arch (L) Low Arch,(R) Low Arch PT-OP-K Range of Motion Start: 02/20/21 08:21 Freq: Status: Active Protocol: Document 05/17/21 15:15 [facility] (Rec: 05/17/21 15:46 [facility] [id number]) Cervical Spine Range of Motion Cervical Spine Active Testing Position Sitting Flexion 45 Extension 12 Rotation Left 39 Lateral Flexion Left 10 Lateral Flexion Right 35 ROM Limitations Soft Tissue Tightness,Pain Lumbar Spine Range of Motion Lumbar Spine Active ROM Limitations Soft Tissue Tightness,Pain Comments moderate decrease in ROM all motions except flexion PT-OP-M Strength Start: 02/20/21 08:21 Freq: Status: Active Protocol: Document 02/21/21 09:47 [facility] (Rec: 02/21/21 14:27 [facility] [id number]) Cervical Spine Strength Cervical Spine Manual Muscle Testing Comments not tested due to recent surgery Trunk Strength Trunk Manual Muscle Testing Comments not tested due to recent surgery Shoulder Strength Shoulder Manual Muscle Testing justin Comments no testing due to recent surgery Hand C[employer] 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 Hand Dominance Hand Dominance Right Hand Strength Right [employer] Plant Worker (lbs) 35 Left [employer] Worker (lbs) 40 Hip Strength Hip Manual Muscle Testing justin Comments no MMT due to recent surgery, no straining PT-OP-Q Treatments Start: 02/20/21 08:21 Freq: Status: Active Protocol: Document 06/29/21 13:07 [facility] (Rec: 06/29/21 14:29 [facility] [id number]) Cardio Equipment Other Cardio Equipment Other Cardio Equipment not done due to hip injection yesterday Therapeutic Exercises Supine Exercises chin tuck Reps/Minutes 2x5 deep breathing Reps/Minutes 3 min Comments cues for inhale and exhale through nose, longer exhale ITY stretches Side bilateral Reps/Minutes 5x then end-range stretch with ea Manual Therapy Treatment Soft Tissue Mobilization c/s, UT, LS, rhomboids Mobilization Type Myofascial Release,Strumming, Sustained Pressure Body Position Supine Comments suboccipital release Self-Care/Home Management Treatment Education Patient Education Body Mechanics,Home Exercise Program,Pain Management Other Education deep breathing for muscle relaxation, pain managemen updated written ex handout seek out PT after moves if continues to have difficulty PT-OP-R Modalities Start: 02/20/21 08:21 Freq: Status: Active Protocol: Document 06/29/21 13:07 [facility] (Rec: 06/29/21 14:29 [facility] [id number]) Hot Pack/Cold Pack Treatment Hot Pack Location justin c/s, ut Patient Position Hooklying Treatment Duration (minutes) 15 Patient Tolerance Good PT-OP-T Assessment and Plan Start: 02/20/21 08:21 Freq: Status: Active Protocol: Document 06/29/21 13:07 [facility] (Rec: 06/29/21 13:12 [facility] [id number]) Physical Therapy Assessment Assessment Summary Assessment goals not fully achieved; limited visits and patient getting ready to move, stressful and lots of moving and lifting things. May benefit from further PT once she moves and is settled in [place]. Physical Therapy Plan Discharge Physical Therapy Discharge Comments moving out of state. May benefit from further PT in [place].
--- NOTE | 2021-06-29 14:31 | PT.OPDS ---
Current Diagnoses Pain in right hip (06/29/21) Pain in left hip (06/29/21) Cervicalgia (06/29/21) Abnormal posture (06/29/21) Weakness (06/29/21) Visit Care Team Role Provider Type Lidia Sharpe MD Primary Care Provider Physician Specialty: Family Practice Address: [address] [place] [address], [place], [address] Email: [email or web address] Attending Provider Non-Staff Referring Provider Specialty: Medical Address: [address] [place] [address], [address] [place] [address], [id number] Email: Visit Number Visit Number 18 Discharge Summary PT-OP-B Current Condition Start: 02/20/21 08:21 Freq: Status: Active Protocol: Document 06/16/21 15:19 [facility] (Rec: 06/16/21 16:11 [facility] [id number]) Current Condition History of Current Condition History of Current Condition 01/06/21: cervical fusion C567 anterior approach. Reports x- ray at follow-up 01/24/21 looked good. Sees doctor again next week 03/02/21. Since surgery started off feeling better, now reports some good days, some bad days with pain, still taking some pain pills (a couple days per week.) Pain is right sided more than left, sometimes radiating into right UE, right shoulder blade. Symptoms similar to before surgery but not as bad. Has been using ice, states was told by physician to only use ice, not heat at first after surgery. Has been doing shoulder shrugs, neck turning exercises, looking up and down. Denies N/T. Also seeing a doctor due to bilateral leg pain right greater than left, keeping her up at night. More pain when first stands up from sitting. Getting injections in knees tomorrow. Trying to walk about 1/2 hour per day abut severity of pain limits her mobiity. PT-OP-C Subjective Start: 02/20/21 08:21 Freq: Status: Active Protocol: Document 06/29/21 13:07 [facility]AK (Rec: 06/29/21 13:12 SAK [id number]) OP-PT Subjective Patient Comments Patient Comments Had injection right hip , and left hip 06/28/21. Neck and shoulders sore from getting ready to clean. Agreeable to no ex for LE's due to injection yesterday, will foruc on neck pain. PT-OP-F Manual Assessment Start: 02/20/21 08:21 Freq: Status: Active Protocol: Document 02/21/21 09:47 [facility] (Rec: 02/21/21 14:27 [facility] [id number]) Manual Assessments Soft Tissue Assessment Soft Tissue Mobility Assessment increased soft tissue tightness bilateral c/s and upper traps right greater than left, right periscapular sregion PT-OP-G Mobility & Gait Start: 02/20/21 08:21 Freq: Status: Active Protocol: Document 02/21/21 09:47 [facility] (Rec: 02/21/21 14:27 [facility] [id number]) OP Mobility Evaluation Bed Mobility Rolling independent with log roll Supine to and from Sit independent with log roll PT-OP-H Neuro Start: 02/20/21 08:21 Freq: Status: Active Protocol: Document 02/21/21 09:47 [facility] (Rec: 02/21/21 14:27 [facility] [id number]) Sensation Evaluation Gross Sensation Gross Sensation WNL PT-OP-J Posture/Palpation/Skin Start: 02/20/21 08:21 Freq: Status: Active Protocol: Document 05/17/21 15:15 [facility] (Rec: 05/17/21 15:46 [facility] [id number]) Posture Evaluation Position Standing Head/C-Spine Posture Forward Head T-Spine Posture Increased Kyphosis L-Spine Posture Increased Lordosis Shoulder Posture (L) Rounded,(R) Rounded Shoulder Subluxation Position (L) Anterior,(R) Anterior Scapula Posture (L) Protracted,(R) Protracted Hip Posture (L) Externally Rotated,(R) Externally Rotated Foot Arch (L) Low Arch,(R) Low Arch PT-OP-K Range of Motion Start: 02/20/21 08:21 Freq: Status: Active Protocol: Document 05/17/21 15:15 [facility] (Rec: 05/17/21 15:46 [facility] [id number]) Cervical Spine Range of Motion Cervical Spine Active Testing Position Sitting Flexion 45 Extension 12 Rotation Left 39 Lateral Flexion Left 10 Lateral Flexion Right 35 ROM Limitations Soft Tissue Tightness,Pain Lumbar Spine Range of Motion Lumbar Spine Active ROM Limitations Soft Tissue Tightness,Pain Comments moderate decrease in ROM all motions except flexion PT-OP-M Strength Start: 02/20/21 08:21 Freq: Status: Active Protocol: Document 02/21/21 09:47 [facility] (Rec: 02/21/21 14:27 [facility] [id number]) Cervical Spine Strength Cervical Spine Manual Muscle Testing Comments not tested due to recent surgery Trunk Strength Trunk Manual Muscle Testing Comments not tested due to recent surgery Shoulder Strength Shoulder Manual Muscle Testing justin Comments no testing due to recent surgery Hand Lighter Captain/Pinch Strength Hand Dominance Hand Dominance Right Hand Strength Right Lighter Captain (lbs) 35 Left Lighter Captain (lbs) 40 Hip Strength Hip Manual Muscle Testing justin Comments no MMT due to recent surgery, no straining PT-OP-T Assessment and Plan Start: 02/20/21 08:21 Freq: Status: Active Protocol: Document 06/29/21 13:07 [facility] (Rec: 06/29/21 13:12 [facility] [id number]) Physical Therapy Assessment Assessment Summary Assessment goals not fully achieved; limited visits and patient getting ready to move, stressful and lots of moving and lifting things. May benefit from further PT once she moves and is settled in [place]. Physical Therapy Plan Discharge Physical Therapy Discharge Comments moving out of state. May benefit from further PT in [place].
== END 2021-10-18 09:54 ==
LOC: PHYS 13:00
PROVIDERS: PCP Family Medicine; Referring Provider Nurse Practitioner Acute Care; Visit Provider Nurse Practitioner Acute Care
DX: M54.2 Cervicalgia (principal); M25.551 Pain in right hip; M25.552 Pain in left hip; R29.3 Abnormal posture; R53.1 Weakness
CPT/HCPCS: 97110; 97140; 97162; 97530; 97535